=== PATIENT | male | born 1950 | race Hispanic/Latino ===

== ENCOUNTER 2017-01-26 07:19 | Day surgery (SDC) | payer MEDICARE ==
[2017-01-23 04:03] VITALS: BMI 18.1
[2017-01-26] MEDS ORDERED: Midazolam 2 MG/2 ML VIAL ONE (08:06)
[2017-01-26] MEDS ORDERED: Iohexol 350mg/ml 100 ML ONE ×2 (08:45→08:51)
[2017-01-26] MEDS ORDERED: Sodium Chloride 0.9% 500 ML IV SCH (09:15)
--- NOTE | 2017-01-26 09:36 | CP.SDSHP ---
Same Day Surgery H & P - History Proposed Procedure: see consult from [facility]. no change. - Allergies Allergies: Allergies No Known Allergies Allergy (Verified 01/21/17 15:49) Short Stay Discharge - Short Stay Discharge Admitting Diagnosis/Reason for Visit: CHEST PAIN Disposition: HOME/ ROUTINE
--- NOTE | 2017-01-26 10:13 | CARDCATH ---
PROCEDURE DATE: 01/26/2017 PROCEDURE PERFORMED: Left heart catheterization, coronary angiography, left ventriculography. INDICATIONS: Dyspnea on exertion, abnormal stress test. COMPLICATIONS: None. HISTORY: The patient is a 66-year-old male with past medical history of hypertension, hypercholesterolemia, coronary artery disease, who has had previous coronary bypass grafting. The patient has dyspnea on exertion. Nuclear perfusion stress test shows evidence of myocardial perfusion defects and ejection fraction 45%. He is referred for cardiac catheterization. FINDINGS: LEFT MAIN: Normal. LEFT ANTERIOR DESCENDING ARTERY: There is a 95% stenosis of the proximal vessel. The mid vessel is 100% occluded. The distal vessel is supplied by a patent left internal mammary graft. LEFT CIRCUMFLEX ARTERY: The vessel is occluded 100% in the mid portion. RIGHT CORONARY ARTERY: The vessel is occluded 100% in the proximal portion. LEFT INTERNAL MAMMARY TO LEFT ANTERIOR DESCENDING ARTERY: Patent SAPHENOUS VEIN GRAFT to Right Posterior Descending artery: Patent. SEQUENTIAL SAPHENOUS VEIN GRAFT to the first and second obtuse marginal artery : patent. LEFT VENTRICLE: Left ventricular systolic function is mildly reduced. Left ventricular ejection fraction is 45%. There is no mitral regurgitation, no aortic stenosis. Mild posterobasal hypokinesis is noted. CONCLUSIONS: 1. Severe multivessel coronary artery disease. 2. Patent bypass grafts. 3. Mild left ventricular systolic dysfunction. PLAN: Medical therapy. Leodan Cochran MD cc: [phone] TT: 01/26/2017 10:12:26 jn MTDD
== END 2017-01-26 10:55 | disposition home or self-care (01) ==
LOC: MERGE 07:19 → C.CATHLAB 07:19
PROVIDERS: ATTEND Internal Medicine Cardiovascular Disease
DX: I25.10 Atherosclerotic heart disease of native coronary artery without angina pectoris (principal); Z95.1 Presence of aortocoronary bypass graft; I25.82 Chronic total occlusion of coronary artery; I51.89 Other ill-defined heart diseases
CPT/HCPCS: 93459; 93567; C1729; C1766; C1769; C1887; J1644; J2250; J3010; J7040; Q9967

== ENCOUNTER 2018-01-05 12:19 | Emergency (ER) | payer MEDICARE ==
[2018-01-05 12:20] VITALS: BMI 18.1
--- NOTE | 2018-01-05 12:56 | C.PDOC ---
History Of Present Illness 67 year old male with PMhx of CAD (Stents), CHF, COPD, emphysema presents to the ED for evaluation of SOB for the past several weeks. Patient states that today his SOB is the same but states he has a non productive cough, he denies his SOB is due to exertion. Patient was a smoker until 1 year ago when he quit. Patient denies fever, chills, nausea, vomit, diarrhea, back pain, CP. Chief Complaint (Nursing): Shortness Of Breath History Per: Patient History/Exam Limitations: no limitations Onset/Duration Of Symptoms: Days Quality: Tightness Current Respiratory Medications: See Home Med List Severity: None Associated Symptoms: Other (No productive cough) Recent travel outside of the [place]: No Additional History Per: Patient Past Medical History Reviewed: Historical Data, Nursing Documentation, Vital Signs Vital Signs: Last Vital Signs Temp 97.4 F L 01/05/18 12:25 Pulse 72 01/05/18 12:25 Resp 24 01/05/18 12:25 BP 171/89 H 01/05/18 12:25 Pulse Ox 100 01/05/18 14:45 - Medical History PMH: Anemia, Asthma, Atrial Fibrillation, Bronchitis, CAD, Cardia Arrhythmia, CHF, COPD, Emphysema, HTN, Hypercholesterolemia, Malignancy (right lung mass) Denies: HIV, Chronic Kidney Disease Surgical History: CABG (x3), Coronary Stent (x3), Pacemaker - [facility] Procedures FLUOROSCOPY OF LEFT HEART USING OTHER CONTRAST (01/22/17) INSERT PACE. DUAL JOHN IN CHEST SUBCU/FASCIA, OPEN (02/17/17) INSERTION OF PACEMAKER LEAD INTO R VENTRICLE, PERC APPROACH (02/17/17) INSERTION OF PACEMAKER LEAD INTO RIGHT ATRIUM, PERC APPROACH (02/17/17) INTRODUCTION OF SERUM/TOX/VACCINE INTO MUSCLE, PERC APPROACH (01/22/17) MEASURE OF CARDIAC SAMPL & PRESSURE, L HEART, PERC APPROACH (01/22/17) Family History: States: Unknown Family Hx - Social History Hx Alcohol Use: No Hx Substance Use: No - Immunization History Hx Tetanus Toxoid Vaccination: No Hx Influenza Vaccination: No Hx Pneumococcal Vaccination: No Review Of Systems Constitutional: Negative for: Fever, Chills Cardiovascular: Negative for: Chest Pain, Palpitations Respiratory: Positive for: Cough, Shortness of Breath Gastrointestinal: Negative for: Nausea, Vomiting, Abdominal Pain Musculoskeletal: Negative for: Back Pain Skin: Negative for: Rash Neurological: Negative for: Weakness, Numbness, Headache Physical Exam - Physical Exam Appears: Non-toxic, No Acute Distress, Other (Thin) Skin: Normal Color, Warm, Dry Head: Atraumatic, Normacephalic Eye(s): bilateral: Normal Inspection Nose: No Discharge Oral Mucosa: Moist Neck: Normal ROM, Supple Chest: Symmetrical Cardiovascular: Rhythm Regular, No Murmur Respiratory: Rales (Left lower and mid lung felds), No Rhonchi, No Wheezing Gastrointestinal/Abdominal: Soft, No Tenderness, No Guarding, No Rebound Extremity: Normal ROM, No Tenderness, No Swelling Pulses: Left Dorsalis Pedis: Normal, Right Dorsalis Pedis: Normal Neurological/Psych: Oriented x3 Gait: Steady ED Course And Treatment - Laboratory Results Result Diagrams: 01/05/18 13:12 01/05/18 13:12 ECG: Interpreted By Me, Viewed By Me Interpretation Of ECG: Atrial paced, pacemaker 100 capture. Q wave in inferior lead suggest old inferior wall SD. flipped Ts in V4 - V6 lateral ischemia. Rate From EC O2 Sat by Pulse Oximetry: 100 (On RA) Pulse Ox Interpretation: Normal Medical Decision Making Medical Decision Making: Impression: pneumonia vs COPD exacerbation Plan: * EKG * Labs * CXR * Solumedrol 125 mg IVP * Blood culture * Nebulizer treatment 14:42 - spoke with Dr. Elias states patient like to come to the ED, is not compliant with his medications. Patient is not able to afford his medications and need group home placement as per Dr. Elias. Disposition - Disposition Referrals: Pete Elias MD [Staff Provider] - Disposition: HOME/ ROUTINE Disposition Time: 15:46 Condition: FAIR Instructions: Shortness of Breath (Dyspnea) Forms: [employer] (Armenian) Print Language: SLOVAK - Clinical Impression Clinical Impression: Dyspnea - Scribe Statement The provider has reviewed the documentation as recorded by the Scribe Mirza Bell All medical record entries made by the Scribe were at my direction and personally dictated by me. I have reviewed the chart and agree that the record accurately reflects my personal performance of the history, physical exam, medical decision making, and the department course for this patient. I have also personally directed, reviewed, and agree with the discharge instructions and disposition.
[2018-01-05 13:21] LABS: BASO % 0.4 % (0.0-2.0); EOS # 0.2 K/uL (0.0-0.7); EOS % 2.9 % (0.0-4.0); HEMOGLOBIN 10.9 g/dL (12.0-18.0); LYMPH # 1.4 K/uL (1.0-4.3); LYMPH % 17.6 % (20.0-40.0); MEAN CELL VOLUME 91.2 fL (80.0-94.0); MEAN CORPUSCULAR HEMOGLOBIN 30.4 pg (27.0-31.0); MEAN CORPUSCULAR HGB CONC 33.3 g/dL (33.0-37.0); MEAN PLATELET VOLUME 7.4 fL (7.2-11.7); MONO # 0.6 K/uL (0.0-0.8); MONO % 7.2 % (0.0-10.0); NEUT # 5.9 K/uL (1.8-7.0); NEUT % 71.9 % (50.0-75.0); RBC 3.61 Mil/uL (4.40-5.90); RED CELL DISTRIBUTION WIDTH 16.6 % (11.5-14.5); WHITE BLOOD COUNT 8.2 K/uL (4.8-10.8)
[2018-01-05 13:34] LABS: ALB/GLOB RATIO 1.2 (1.0-2.1); ALBUMIN 4.2 g/dL (3.5-5.0); CALCIUM 8.9 mg/dl (8.6-10.4); GFR AFRICAN-AMERICAN > 60; GFR NON-AFRICAN AMERICAN > 60
[2018-01-05 13:37] LABS: ALT/SGPT 30 U/L (21-72); AST/SGOT 46 U/L (17-59); BLOOD UREA NITROGEN 23 mg/dL (9-20)
[2018-01-05 13:45] LABS: B-TYPE NATRIURETIC PEPTIDE 792 pg/mL (0-900)
--- NOTE | 2018-01-05 14:32 | RAD ---
PROCEDURE: CHEST RADIOGRAPH, 1 VIEW HISTORY: SOB COMPARISON: 08/31/2017 FINDINGS: LUNGS: Clear. PLEURA: No pneumothorax or pleural fluid seen. CARDIOVASCULAR: Position/ configuration of pacemaker radiographic findings to suggest acute or significant cardiovascular disease. Incidental Finding(s): Postoperative changes related to sternotomy. OSSEOUS STRUCTURES: No significant abnormalities. VISUALIZED UPPER ABDOMEN: Normal. OTHER FINDINGS: None. IMPRESSION: No active disease. No acute/significant interval changes.
[2018-01-05 15:55] VITALS: BP 155/73; PULSE 68; RESP 18; TEMP 97.5; O2SAT 97
== END 2018-01-05 15:55 | disposition home or self-care (01) ==
LOC: C.ER 12:19
DX: R06.00 Dyspnea, unspecified (principal); I10 Essential (primary) hypertension; I48.91 Unspecified atrial fibrillation; D64.9 Anemia, unspecified; Z87.891 Personal history of nicotine dependence
CPT/HCPCS: 71045; 80053; 83880; 84484; 85025; 85378; 87040; 96374; 99285; J2930

== ENCOUNTER 2018-04-13 03:05 | Inpatient (IN) | payer MEDICARE ==
--- NOTE | 2018-04-13 03:19 | C.PDOC ---
History Of Present Illness Patient presents to the ER with a complaint of SOB worsening over the past few days. Patient has not taken any medications as he cannot afford them and has not seen a doctor in a couple of months. He complains now of mild chest discomfort and SOB. Patient is currently speaking in complete sentences. Denies fever or chills. Time Seen by Provider: 04/13/18 03:18 Chief Complaint (Nursing): Shortness Of Breath History Per: Patient History/Exam Limitations: no limitations Onset/Duration Of Symptoms: Days Current Symptoms Are (Timing): Still Present Initiating Event: Other (Not known) Quality: Dull Exacerbating Factor(s): Exertion Current Respiratory Medications: See Home Med List Severity: Moderate Pain Scale Rating Of: 5 Associated Symptoms: Chest Pain (Discomfort), Other (SOB). denies: Fever, Chills Reports Recently: Seen In ED, Treated By A Physician Recent travel outside of the [place]: No Additional History Per: Patient Past Medical History Reviewed: Historical Data, Nursing Documentation, Vital Signs Vital Signs: Last Vital Signs Temp 97.6 F 04/13/18 03:17 Pulse 66 04/13/18 03:17 Resp 24 04/13/18 03:34 BP 136/71 04/13/18 03:17 Pulse Ox 98 04/13/18 03:17 - Medical History PMH: Anemia, Asthma, Atrial Fibrillation, Bronchitis, CAD, Cardia Arrhythmia, CHF, COPD, Emphysema, HTN, Hypercholesterolemia, Malignancy (right lung mass), Seizures Surgical History: CABG (x3), Coronary Stent (x3), Pacemaker - [facility] Procedures FLUOROSCOPY OF LEFT HEART USING OTHER CONTRAST (01/22/17) INSERT PACE. DUAL JOHN IN CHEST SUBCU/FASCIA, OPEN (02/17/17) INSERTION OF PACEMAKER LEAD INTO R VENTRICLE, PERC APPROACH (02/17/17) INSERTION OF PACEMAKER LEAD INTO RIGHT ATRIUM, PERC APPROACH (02/17/17) INTRODUCTION OF SERUM/TOX/VACCINE INTO MUSCLE, PERC APPROACH (01/22/17) MEASURE OF CARDIAC SAMPL & PRESSURE, L HEART, PERC APPROACH (01/22/17) Family History: States: No Known Family Hx - Social History Hx Alcohol Use: No Hx Substance Use: No - Immunization History Hx Tetanus Toxoid Vaccination: No Hx Influenza Vaccination: No Hx Pneumococcal Vaccination: No Review Of Systems Constitutional: Negative for: Fever, Chills Cardiovascular: Positive for: Chest Pain. Negative for: Palpitations Respiratory: Positive for: Shortness of Breath Gastrointestinal: Negative for: Nausea, Vomiting Genitourinary: Negative for: Dysuria Musculoskeletal: Negative for: Back Pain Skin: Negative for: Rash Neurological: Negative for: Weakness Psych: Negative for: Anxiety Physical Exam - Physical Exam Appears: Non-toxic Skin: Warm, Dry Head: Normacephalic Eye(s): bilateral: Normal Inspection Oral Mucosa: Moist Neck: Supple Chest: No Tenderness, Other (CABG scar, left pacemaker) Cardiovascular: Rhythm Regular Respiratory: Rales (At bases), No Rhonchi, No Wheezing Gastrointestinal/Abdominal: Soft, No Tenderness Back: Normal Inspection Extremity: Pedal Edema (Trace) Extremity: Bilateral: Atraumatic Pulses: Left Dorsalis Pedis: Normal, Right Dorsalis Pedis: Normal Neurological/Psych: Oriented x3 Gait: Steady ED Course And Treatment - Laboratory Results Result Diagrams: 04/13/18 03:34 04/13/18 03:34 ECG: Interpreted By Me, Viewed By Me ECG Rhythm: Sinus Rhythm (67), ST/T Changes, Nonspecific Changes (atrial paced rhythm) Pulse Ox Interpretation: Normal - Radiology CXR: Interpreted by Me, Viewed By Me CXR Interpretation: Yes: COPD, Other (cabg, pacer left). No: Infiltrates, Fracture Progress Note: Blood work, EKG, and CXR ordered. Aspirin administered. Disposition Discussed With DrEvangelina: Merlyn Duque Comment: accepted the pt on his service and took over the care at 4:28AM Doctor Will See Patient In The: Hospital Counseled Patient/Family Regarding: Studies Performed, Diagnosis - Disposition Disposition: HOSPITALIZED Disposition Time: 03:18 Condition: FAIR Forms: [facility] (Malay) - POA Present On Arrival: None - Clinical Impression Clinical Impression: Dyspnea, Chest pain - Scribe Statement The provider has reviewed the documentation as recorded by the Scribe Virgil Zimmer All medical record entries made by the Scribe were at my direction and personally dictated by me. I have reviewed the chart and agree that the record accurately reflects my personal performance of the history, physical exam, medical decision making, and the department course for this patient. I have also personally directed, reviewed, and agree with the discharge instructions and disposition. Decision To Admit - Pt Status Changed To: Hospital Disposition Of: Inpatient - Admit Certification Admit to Inpatient:: After my assessment, the patient will require hospitalization for at least two midnights. This is because of the severity of symptoms shown, intensity of services needed, and/or the medical risk in this patient being treated as an outpatient. - InPatient: Physician Admission Certification: I certify that this patient requires 2 or more midnights of care for the following reason:: After my assessment, the patient will require hospitalization for at least two midnights. This is because of the severity of symptoms shown, intensity of services needed, and/or the medical risk in this patient being treated as an outpatient. - . Bed Request Type: Telemetry Admitting Physician: Merlyn Duque Patient Diagnosis: Dyspnea, Chest pain
[2018-04-13 03:20] VITALS: BMI 23.0
[2018-04-13] MEDS ORDERED: Aspirin 325 mg EC Tablets PO STA (03:20)
[2018-04-13] MEDS ORDERED: Aspirin 325 mg EC Tablets PO ONE (03:33)
[2018-04-13 03:38] LABS: BASO # 0.1 K/uL (0.0-0.2); EOS # 0.6 K/uL (0.0-0.7); HEMOGLOBIN 12.1 g/dL (12.0-18.0); LYMPH # 1.5 K/uL (1.0-4.3); LYMPH % 21.8 % (20.0-40.0); MEAN CORPUSCULAR HEMOGLOBIN 30.6 pg (27.0-31.0); MEAN CORPUSCULAR HGB CONC 34.1 g/dL (33.0-37.0); MEAN PLATELET VOLUME 7.3 fL (7.2-11.7); MONO # 0.6 K/uL (0.0-0.8); MONO % 9.3 % (0.0-10.0); NEUT % 57.9 % (50.0-75.0); RBC 3.95 Mil/uL (4.40-5.90); RED CELL DISTRIBUTION WIDTH 15.3 % (11.5-14.5)
[2018-04-13 03:46] LABS: INR 0.9; PROTHROMBIN TIME 10.3 SECONDS (9.7-12.2)
[2018-04-13 03:52] LABS: ALB/GLOB RATIO 1.4 (1.0-2.1); ALBUMIN 4.7 g/dL (3.5-5.0); ALT/SGPT 27 U/L (21-72); AST/SGOT 40 U/L (17-59); BLOOD UREA NITROGEN 22 mg/dL (9-20); CALCIUM 9.4 mg/dl (8.6-10.4); GFR AFRICAN-AMERICAN > 60; GFR NON-AFRICAN AMERICAN > 60; LIPASE 59 U/L (23-300)
[2018-04-13 04:04] LABS: B-TYPE NATRIURETIC PEPTIDE 804 pg/mL (0-900)
--- NOTE | 2018-04-13 08:27 | RAD ---
PROCEDURE: CHEST RADIOGRAPH, 1 VIEW HISTORY: Chest pain COMPARISON: 01/05/2018. FINDINGS: LUNGS: The lungs are hyperinflated and there is peribronchial thickening with chronic changes in both lungs. PLEURA: No pneumothorax. There is stable left pleural thickening CARDIOVASCULAR: The heart is normal in size. Status post median sternotomy. There is stable position of left-sided pacing device. OSSEOUS STRUCTURES: No significant abnormalities. VISUALIZED UPPER ABDOMEN: Normal. OTHER FINDINGS: None. IMPRESSION: COPD. No acute findings.
[2018-04-13] MEDS ORDERED: Nitroglycerin 2% Ointment Foilpak UD TOP ONE (08:57)
[2018-04-13] MEDS: Nitroglycerin 2% Ointment Foilpak UD TOP SCH ×3 (09:00→18:26)
[2018-04-13] MEDS: Enoxaparin 40 mg Syringe SC SCH ×2 (09:53→18:27)
--- NOTE | 2018-04-13 11:04 | CARD ---
APPROVED REPORT EKG Measurement Heart [id number] <Conclusion> Atrial-paced rhythm with prolonged AV conduction Cannot rule out Inferior infarct, age undetermined Cannot rule out Anterior infarct, age undetermined ST & T wave abnormality, consider lateral ischemia Abnormal ECG
[2018-04-13 12:13] LABS: CK-MB 2.45 ng/mL (0.0-3.38)
--- NOTE | 2018-04-13 14:24 | CP.PCM.HP ---
History of Present Illness - History of Present Illness History of Present Illness: COMPREHENSIVE HISTORY & PHYSICAL EXAM HPI Patient is admitted from [facility] emergency room with shortness of breath and atypical chest pain. Patient has a history of coronary artery disease with CABG, ran out of the medication due to lack of funds, became short of breath with atypical chest pain. In the emergency room patient was found to be in congestive heart failure responded with IV Lasix and is admitted for further treatment PAST HIST. Patient has been admitted in [facility] for multiple times for CHF and chest pain. Patient has a CABG pulled details not available but had a cardiac cath done in 2017 showed patent grafts patient had an echo done last year which showed mild LV dysfunction with EF of 45%. Patient had a sinus bradycardia during that admission and since then patient has DDD pacemaker PERSONAL HIST: Smoking. N Alcohol. N Allergy N Travel_- . FAMILY HIST : ROS : Constitutional: Negative for weight change Eyes: Negative for redness, swelling , itching, discharge, vision changes, blurry vision, double vision, glaucoma, cataracts, Ears: Negative for hearing loss, ringing, , tinnitus, vertigo Nose: Negative for rhinorrhea, stuffiness, sniffing, itching, postnasal drip, discoloration, nasal congestion and epistaxis. Throat: Negative for throat clearing, sore throat, hoarseness, difficulty swallowing and difficulty speaking. Respiratory: Negative pleuritic chest pain ,daytime somnolence, chronic cough , hemoptysis, snoring at night, Cardiovascular: Negative for Edema of legs, leg cramps, angina, claudication, , irregular heartbeat, Neurology: Negative for irritability, muscle weakness, numbness and tingling, seizures, tremors, migraines, slurred speech, syncope, memory loss, mood changes , recurrent headaches Gastrointestinal: Negative for difficulty swallowing, diarrhea, constipation, black stools, rectal bleeding, nausea, flatulence, reflux, poor appetite, changes in bowel habits, abdominal pain Genitourinary: Negative for frequent urination, hematuria, discharge, incontinence, urinary retention, frequent UTI, Psychiatric: Negative for depression, anxiety/panic, suicidal tendencies, Musculoskeletal: Negative for swollen joints, back pain, , neck pain, morning stiffness of joints, . Skin: Negative for rash, ulcers, itching, dry skin and pigmented lesions. P/E: Constitutional: Appears stated age and in no apparent distress. Head: Normocephalic. Ears: External ear canals patent without inflammation. Tympanic membranes intact with normal light reflex and landmark. Eyes: Pupils are central, bilaterally equal, symmetrical and reacts to light with normal movements and no icterus or pallor. Nose: External nares are patent. Mucosa is pink Mouth-Throat: Good general appearance and condition. No post-pharyngeal/oropharyngeal erythema and tonsillar hypertrophy. Good dental hygiene. Neck-Lymphatic: Neck is supple with normal ROM, no thyromegaly, lymph nodes or masses. JVD is normal with no carotid bruit. Lungs: Bilateral poor entry with rhonchi Cardiovascular: S1 and S2 are normal with no murmurs, gallops and rub. GI Exam: No hepatomegaly. Abdomen is soft and non-tender. No Organomegaly , masses or hernias are evident and bowel sounds are normal and active. Neurology: Higher function and all cranial nerves intact, with no gross motor or sensory deficit. Superficial and deep reflexes are normal with downwards planters. No cerebellar deficit with normal gait. Musculoskeletal: No tender spots with normal curvature of the spine with no swelling or restricted ROM of the small and large joints. Extremities: Homans sign absent. Intact pulses with no pitting edema, calf tenderness or skin color changes. Skin: No rash, eruptions or abnormal skin pigmentation LAB/RADIOLOGY: ASSESMENT : Acute on chronic systolic congestive heart failure with reduced ejection fraction. COPD with exacerbation Presence of pacemaker PLAN: See orders Present on Admission - Present on Admission Any Indicators Present on Admission: No Past Patient History - Infectious Disease Hx of Infectious Diseases: None - Past Medical History & Family History Past Medical History?: Yes - Past Social History Smoking Status: Former Smoker - CARDIAC Hx Atrial Fibrillation: Yes Hx Cardia Arrhythmia: Yes Hx Congestive Heart Failure: Yes Hx Hypercholesterolemia: Yes Hx Hypertension: Yes Hx Pacemaker: Yes - PULMONARY Hx Asthma: Yes Hx Bronchitis: Yes Hx Chronic Obstructive Pulmonary Disease (COPD): Yes Hx Emphysema: Yes - NEUROLOGICAL Hx Seizures: Yes - HEENT Hx HEENT Problems: No - RENAL Hx Chronic Kidney Disease: No - ENDOCRINE/METABOLIC Hx Endocrine Disorders: No - HEMATOLOGICAL/ONCOLOGICAL Hx Anemia: Yes - INTEGUMENTARY Hx Dermatological Problems: No - MUSCULOSKELETAL/RHEUMATOLOGICAL Hx Falls: No - GASTROINTESTINAL Hx Gastrointestinal Disorders: No - GENITOURINARY/GYNECOLOGICAL Hx Sexually Transmitted Disorders: No - PSYCHIATRIC Hx Substance Use: No - SURGICAL HISTORY Hx Coronary Artery Bypass Graft: Yes (x3) Hx Coronary Stent: Yes (x3) - ANESTHESIA Hx Anesthesia: Yes Hx Anesthesia Reactions: No Hx Malignant Hyperthermia: No Meds Allergies/Adverse Reactions: Allergies Allergy/AdvReac Type Severity Reaction Status Date / Time No Known Allergies Allergy Verified 04/13/18 03:21 Results - Vital Signs Recent Vital Signs: Last Vital Signs Temp 97.9 F 04/13/18 13:30 Pulse 60 04/13/18 12:35 Resp 20 04/13/18 13:30 BP 129/73 04/13/18 13:30 Pulse Ox 99 04/13/18 12:35 - Labs Result Diagrams: 04/13/18 03:34 04/13/18 03:34 Labs: Laboratory Results - last 24 hr 04/13/18 04/13/18 04/13/18 03:34 03:34 03:34 WBC 7.0 RBC 3.95 L Hgb 12.1 Hct 35.5 MCV 90.0 MCH 30.6 MCHC 34.1 RDW 15.3 H Plt Count 153 MPV 7.3 Neut % (Auto) 57.9 Lymph % (Auto) 21.8 [place] % (Auto) 9.3 Eos % (Auto) 9.0 H Baso % (Auto) 2.0 Neut # (Auto) 4.0 Lymph # (Auto) 1.5 [place] # (Auto) 0.6 Eos # (Auto) 0.6 Baso # (Auto) 0.1 PT 10.3 INR 0.9 APTT 38 H Sodium 141 Potassium 4.3 Chloride 104 Carbon Dioxide 24 Anion Gap 17 BUN 22 H Creatinine 1.0 Est GFR ( Amer) > 60 Est GFR (Non-Af Amer) > 60 Random Glucose 89 Calcium 9.4 Total Bilirubin 0.7 AST 40 ALT 27 Alkaline Phosphatase 89 Total Creatine Kinase CK-MB (Mass) Troponin I < 0.0120 NT-Pro-B Natriuret Pep 804 Total Protein 7.9 Albumin 4.7 Globulin 3.3 Albumin/Globulin Ratio 1.4 Lipase 59 04/13/18 11:38 WBC RBC Hgb Hct MCV MCH MCHC RDW Plt Count MPV Neut % (Auto) Lymph % (Auto) [place] % (Auto) Eos % (Auto) Baso % (Auto) Neut # (Auto) Lymph # (Auto) [place] # (Auto) Eos # (Auto) Baso # (Auto) PT INR APTT Sodium Potassium Chloride Carbon Dioxide Anion Gap BUN Creatinine Est GFR ( Amer) Est GFR (Non-Af Amer) Random Glucose Calcium Total Bilirubin AST ALT Alkaline Phosphatase Total Creatine Kinase 81 CK-MB (Mass) 2.45 Troponin I < 0.0120 NT-Pro-B Natriuret Pep Total Protein Albumin Globulin Albumin/Globulin Ratio Lipase
[2018-04-14] MEDS: Nitroglycerin 2% Ointment Foilpak UD TOP SCH ×4 (00:11→17:00)
[2018-04-14 07:39] LABS: BASO % 0.2 % (0.0-2.0); EOS # 0.1 K/uL (0.0-0.7); EOS % 1.6 % (0.0-4.0); HEMOGLOBIN 12.4 g/dL (12.0-18.0); LYMPH % 11.2 % (20.0-40.0); MEAN CELL VOLUME 90.7 fL (80.0-94.0); MEAN CORPUSCULAR HEMOGLOBIN 30.4 pg (27.0-31.0); MEAN CORPUSCULAR HGB CONC 33.5 g/dL (33.0-37.0); MEAN PLATELET VOLUME 7.1 fL (7.2-11.7); MONO # 0.8 K/uL (0.0-0.8); MONO % 9.5 % (0.0-10.0); NEUT # 6.6 K/uL (1.8-7.0); NEUT % 77.5 % (50.0-75.0); NRBC % 0.1 % (0.0-2.0); RBC 4.09 Mil/uL (4.40-5.90); RED CELL DISTRIBUTION WIDTH 15.3 % (11.5-14.5); WHITE BLOOD COUNT 8.5 K/uL (4.8-10.8)
[2018-04-14 08:14] LABS: ALB/GLOB RATIO 1.4 (1.0-2.1); ALBUMIN 4.2 g/dL (3.5-5.0); ALT/SGPT 22 U/L (21-72); AST/SGOT 37 U/L (17-59); BLOOD UREA NITROGEN 23 mg/dL (9-20); CALCIUM 8.6 mg/dl (8.6-10.4); GFR AFRICAN-AMERICAN > 60; GFR NON-AFRICAN AMERICAN > 60
[2018-04-14] MEDS: Enoxaparin 40 mg Syringe SC SCH (09:40)
[2018-04-14] MEDS ORDERED: Enoxaparin 40 mg Syringe SC SCH (10:00)
[2018-04-14] MEDS ORDERED: Enoxaparin 60 mg Syringe SC SCH (10:00)
--- NOTE | 2018-04-14 13:57 | CARD ---
APPROVED REPORT EXAM: Two-dimensional and M-mode echocardiogram with Doppler and color Doppler. Other Information Quality : GoodRhythm : INDICATION Congestive Heart Failure 2D DIMENSIONS IVSd1.2 (0.7-1.1cm)LVDd6.1 (3.9-5.9cm) LVOT Diameter2.4 (1.8-2.4cm)PWd1.3 (0.7-1.1cm) LVDs4.8 (2.5-4.0cm)FS (%) 20.3 % LVEF (%)40.8 (>50%) M-Mode DIMENSIONS Left Atrium (MM)5.29 (2.5-4.0cm)Aortic Root3.60 (2.2-3.7cm) Aortic Cusp Exc.1.61 (1.5-2.0cm) Mitral Valve MV E Wchaagem22.0cm/sMV A Xddlfslc95.7cm/sMV [id number] E/A ratio0.7MVA (PHT)3.04cm2 TDI E/Lateral E'0.0E/Medial E'0.0 Tricuspid Valve TR Peak Vcraqpaj244ow/sTR Peak Gr.49slKkAHHL65nkBm LEFT VENTRICLE The Left Ventricle is mildly dilated. There is normal left ventricular wall thickness. Left ventricle systolic function is mildly impaired. The Ejection Fraction is 40-45%. There is global hypokinesis of the left ventricle. Transmitral Doppler flow pattern is Grade I-abnormal relaxation pattern. No left ventricle thrombus noted on this study. There is no ventricular septal defect visualized. There is no left ventricular aneurysm. There is no mass noted in the left ventricle. RIGHT VENTRICLE The right ventricle is normal size. There is normal right ventricular wall thickness. The right ventricular systolic function is normal. ATRIA The left atrium is moderately dilated. The right atrium size is normal. The interatrial septum is intact with no evidence for an atrial septal defect. AORTIC VALVE The aortic valve is normal in structure and function. No aortic regurgitation is present. There is no aortic valvular stenosis. There is no aortic valvular vegetation. MITRAL VALVE The mitral valve is normal in structure and function. Mitral annular calcification is mild. There is no evidence of mitral valve prolapse. There is no mitral valve stenosis. Mitral regurgitation is mild. TRICUSPID VALVE The tricuspid valve is normal in structure and function. There is mild tricuspid regurgitation. Right ventricular systolic pressure is estimated at 30-40 mmHg. There is no tricuspid valve prolapse or vegetation. There is no tricuspid valve stenosis. PULMONIC VALVE The pulmonary valve is normal in structure and function. There is no pulmonic valvular regurgitation. There is no pulmonic valvular stenosis. GREAT VESSELS The aortic root is normal in size. The ascending aorta is normal in size. The pulmonary artery is normal. The IVC is normal in size and collapses >50% with inspiration. PERICARDIAL EFFUSION The pericardium appears normal. There is no pleural effusion. <Conclusion> The Left Ventricle is mildly dilated. Left ventricle systolic function is mildly impaired. The Ejection Fraction is 40-45%. The left atrium is moderately dilated. Mitral regurgitation is mild.
--- NOTE | 2018-04-14 14:17 | CP.PCM.PN ---
Subjective - Date & Time of Evaluation Date of Evaluation: 04/14/18 Time of Evaluation: 14:14 - Subjective Subjective: CHIEF COMPLAINTS TODAY : patient has no chest pain. Decreased shortness of breath ROS. HEENT : N. Resp : No cough, wheezing ,pleuritic CP ,or hemoptysis Cardio : No anginal CP, PND, orthopnea, palpitation GI : No abd.pain, n/v ,diarrhea or GI bleeding . 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 Musculoskel : No joint swelling , Derm : No rash Psych : Normal affect. Ext : No swelling ,calf pain PE. Pt. is alert awake in no distress. V.S As noted in the chart Head ,ear nose,throat and eyes : Normal. Neck : Supple with normal carotids. Lungs:bilateral rhonchi and rales Heart : S1 & S2 normal with S4. No murmur. Abd : Soft non tender with normal bowel sounds. Neuro : Moves all ext. with no localized deficit. Ext : No edema with intact pulses.Non tender calves Derm : No rashes or decubitus ulcer. LABS/RADIOLOGY: echocardiogram showed mildly depressed left ventricular ejection fraction between 40 and 45% left atrial enlargement and mild mitral regurg ASSESSMENT/PLAN : continue present medications for CHF and coronary artery disease. Objective - Vital Signs/Intake and Output Vital Signs (last 24 hours): Temp Pulse Resp BP Pulse Ox 98.7 F 62 20 92/52 L 100 04/14/18 07:00 04/14/18 12:06 04/14/18 07:00 04/14/18 12:06 04/14/18 07:00 - Medications Medications: Current Medications Aspirin (Aspirin) 325 mg PO DAILY [facility] Last Admin: 04/14/18 09:40 Dose: 325 mg Carvedilol (Coreg) 3.125 mg PO Q12 [facility] Last Admin: 04/14/18 10:05 Dose: Not Given Clopidogrel Bisulfate (Plavix) 75 mg PO DAILY [facility] Last Admin: 04/14/18 09:40 Dose: 75 mg Docusate Sodium (Colace) 100 mg PO TID [facility] Last Admin: 04/14/18 09:39 Dose: 100 mg Enalapril Maleate (Vasotec) 2.5 mg PO DAILY [facility] Last Admin: 04/14/18 10:05 Dose: Not Given Enoxaparin Sodium (Lovenox) 40 mg SC DAILY [facility] Last Admin: 04/14/18 09:40 Dose: 40 mg Famotidine (Pepcid) 20 mg IVP DAILY [facility] Furosemide (Lasix) 20 mg PO DAILY [facility] Last Admin: 04/14/18 09:45 Dose: 20 mg Nitroglycerin (Nitro-Bid 2% Oint) 0.5 ea TOP Q6 [facility] Last Admin: 04/14/18 12:06 Dose: Not Given - Labs Labs: 04/14/18 07:30 04/14/18 07:30 PT 10.3 SECONDS (9.7-12.2) 04/13/18 03:34 INR 0.9 04/13/18 03:34 APTT 38 SECONDS (21-34) H 04/13/18 03:34
[2018-04-15] MEDS: Nitroglycerin 2% Ointment Foilpak UD TOP SCH ×4 (00:20→17:09)
[2018-04-15 08:28] LABS: BASO # 0.1 K/uL (0.0-0.2); BASO % 0.8 % (0.0-2.0); EOS # 0.2 K/uL (0.0-0.7); EOS % 2.1 % (0.0-4.0); HEMOGLOBIN 12.1 g/dL (12.0-18.0); LYMPH # 1.2 K/uL (1.0-4.3); LYMPH % 11.9 % (20.0-40.0); MEAN CELL VOLUME 89.9 fL (80.0-94.0); MEAN CORPUSCULAR HEMOGLOBIN 29.7 pg (27.0-31.0); MEAN PLATELET VOLUME 7.3 fL (7.2-11.7); MONO % 9.6 % (0.0-10.0); NEUT # 7.9 K/uL (1.8-7.0); NEUT % 75.6 % (50.0-75.0); NRBC % 0.1 % (0.0-2.0); RBC 4.08 Mil/uL (4.40-5.90); RED CELL DISTRIBUTION WIDTH 15.6 % (11.5-14.5); WHITE BLOOD COUNT 10.5 K/uL (4.8-10.8)
[2018-04-15 08:49] LABS: ALB/GLOB RATIO 1.2 (1.0-2.1); ALBUMIN 3.8 g/dL (3.5-5.0); ALT/SGPT 18 U/L (21-72); AST/SGOT 29 U/L (17-59); BLOOD UREA NITROGEN 24 mg/dL (9-20); CALCIUM 8.3 mg/dl (8.6-10.4); GFR AFRICAN-AMERICAN > 60; GFR NON-AFRICAN AMERICAN > 60
[2018-04-15] MEDS: Enoxaparin 40 mg Syringe SC SCH (09:51)
[2018-04-15] MEDS: Aluminum Hydroxide/Magnesium Hydroxide Susp (30 mL) PO PRN ×3 (10:28→19:09)
[2018-04-15] MEDS ORDERED: Albuterol-Ipratrop 3 mg / 0.5 (3 ml) UD INH ONE (10:58)
--- NOTE | 2018-04-15 15:31 | CP.PCM.PN ---
Subjective - Date & Time of Evaluation Date of Evaluation: 04/15/18 Time of Evaluation: 15:30 - Subjective Subjective: CHIEF COMPLAINTS TODAY : patient has no chest pain. Decreased shortness of breath PATIENT HAD EPIGASTRIC BURNING SENSATION WHICH WAS RELIEVED PARTLY WITH iv pEPCID. pATIENT HAS A HISTORY OF PEPTIC ULCER DISEASE WITH SIMILAR PAIN FOR A LONG TIME ROS. HEENT : N. Resp : No cough, wheezing ,pleuritic CP ,or hemoptysis Cardio : No anginal CP, PND, orthopnea, palpitation GI : No abd.pain, n/v ,diarrhea or GI bleeding . 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 Musculoskel : No joint swelling , Derm : No rash Psych : Normal affect. Ext : No swelling ,calf pain PE. Pt. is alert awake in no distress. V.S As noted in the chart Head ,ear nose,throat and eyes : Normal. Neck : Supple with normal carotids. Lungs:bilateral rhonchi and rales Heart : S1 & S2 normal with S4. No murmur. Abd : Soft non tender with normal bowel sounds. Neuro : Moves all ext. with no localized deficit. Ext : No edema with intact pulses.Non tender calves Derm : No rashes or decubitus ulcer. LABS/RADIOLOGY: echocardiogram showed mildly depressed left ventricular ejection fraction between 40 and 45% left atrial enlargement and mild mitral regurg ASSESSMENT/PLAN : continue present medications for CHF and coronary artery disease. PRESCRIBE mAALOX 30 CC EVERY 4 HOURS CONTINUE pEPCID AND gi EVALUATION IN A.M. Objective - Vital Signs/Intake and Output Vital Signs (last 24 hours): Temp Pulse Resp BP Pulse Ox 99.5 F 65 20 113/64 93 L 04/15/18 08:00 04/15/18 08:00 04/15/18 08:00 04/15/18 09:52 04/15/18 08:00 - Medications Medications: Current Medications Al Hydrox/Mg Hydrox/Simethicone (Maalox 30 Ml) 30 ml PO Q4 PRN PRN Reason: Indigestion / Heartburn Last Admin: 04/15/18 15:07 Dose: 30 ml Aspirin (Aspirin) 325 mg PO DAILY [facility] Last Admin: 04/15/18 09:51 Dose: 325 mg Carvedilol (Coreg) 3.125 mg PO Q12 [facility] Last Admin: 04/15/18 09:52 Dose: Not Given Clopidogrel Bisulfate (Plavix) 75 mg PO DAILY [facility] Last Admin: 04/15/18 09:51 Dose: 75 mg Docusate Sodium (Colace) 100 mg PO TID [facility] Last Admin: 04/15/18 13:09 Dose: 100 mg Enalapril Maleate (Vasotec) 2.5 mg PO DAILY [facility] Last Admin: 04/15/18 09:53 Dose: Not Given Enoxaparin Sodium (Lovenox) 40 mg SC DAILY [facility] Last Admin: 04/15/18 09:51 Dose: 40 mg Famotidine (Pepcid) 20 mg IVP DAILY [facility] Last Admin: 04/15/18 09:46 Dose: 20 mg Furosemide (Lasix) 20 mg PO DAILY [facility] Last Admin: 04/15/18 09:52 Dose: 20 mg Nitroglycerin (Nitro-Bid 2% Oint) 0.5 ea TOP Q6 [facility] Last Admin: 04/15/18 12:10 Dose: Not Given - Labs Labs: 04/15/18 08:19 04/15/18 08:19 PT 10.3 SECONDS (9.7-12.2) 04/13/18 03:34 INR 0.9 04/13/18 03:34 APTT 38 SECONDS (21-34) H 04/13/18 03:34
[2018-04-16] MEDS: Nitroglycerin 2% Ointment Foilpak UD TOP SCH ×4 (00:30→19:02)
[2018-04-16 00:37] VITALS: RESP 20
[2018-04-16] MEDS: Aluminum Hydroxide/Magnesium Hydroxide Susp (30 mL) PO PRN (03:05)
[2018-04-16] MEDS ORDERED: Albuterol-Ipratrop 3 mg / 0.5 (3 ml) UD INH STA (07:36)
--- NOTE | 2018-04-16 08:06 | CP.PCM.CON ---
<Bess Martinez - Last Filed: 04/16/18 10:51> History of Present Illness - History of Present Illness History of Present Illness: GI Fellow PGY4 Consult Note This is a 67yM with pmhx of COPD, HTN, HLD, CAD s/p CABG, PPM presenting to ER with complaints of SOB and atypical chest pain for a few days. Patient has a history of coronary artery disease with CABG and ran out of his medication and unable to refill due to financial issues. He has had multiple admissions for CHF and chest pain. Patient has a CABG and a cardiac cath done in 2017 showed patent grafts patient had an echo done last year which showed mild LV dysfunction with EF of 45%. Patient had a sinus bradycardia during that admission and since then patient has PPM. GI was consulted for heartburn. Pt reports her suffers from heartburn and GERD like symtpoms for years he is not on any acid suppressive medications at home. Denies any hx of PUD or EGD or GI bleeding. Pt reports tolerating a diet at home with no nausea or vomiting. No prior colonoscopy ROS: A 12pt ROS was negative except as above PmHx: As stated above PsHx: CABG, PPM FHx: Neg for colon cancer SHx: Denies current etoh, tobacco, drugs Past Patient History - Infectious Disease Hx of Infectious Diseases: None - Past Medical History & Family History Past Medical History?: Yes - Past Social History Smoking Status: Former Smoker - CARDIAC Hx Cardiac Disorders: Yes Hx Congestive Heart Failure: Yes Hx Hypercholesterolemia: Yes Hx Hypertension: Yes - PULMONARY Hx Chronic Obstructive Pulmonary Disease (COPD): Yes - NEUROLOGICAL Hx Seizures: Yes - HEENT Hx HEENT Problems: No - RENAL Hx Chronic Kidney Disease: No - ENDOCRINE/METABOLIC Hx Endocrine Disorders: No - HEMATOLOGICAL/ONCOLOGICAL Hx Anemia: Yes - INTEGUMENTARY Hx Dermatological Problems: No - MUSCULOSKELETAL/RHEUMATOLOGICAL Hx Falls: Yes - GASTROINTESTINAL Hx Gastrointestinal Disorders: No - GENITOURINARY/GYNECOLOGICAL Hx Sexually Transmitted Disorders: No - PSYCHIATRIC Hx Substance Use: No - SURGICAL HISTORY Hx Coronary Artery Bypass Graft: Yes (x3) Hx Coronary Stent: Yes (x3) - ANESTHESIA Hx Anesthesia: Yes Hx Anesthesia Reactions: No Hx Malignant Hyperthermia: No Has any member of the family had a problem w/ anesthesia?: No Meds Allergies/Adverse Reactions: Allergies Allergy/AdvReac Type Severity Reaction Status Date / Time No Known Allergies Allergy Verified 04/13/18 03:21 - Medications Medications: Current Medications Al Hydrox/Mg Hydrox/Simethicone (Maalox 30 Ml) 30 ml PO Q4 PRN PRN Reason: Indigestion / Heartburn Last Admin: 04/16/18 03:05 Dose: 30 ml Aspirin (Aspirin) 325 mg PO DAILY [facility] Last Admin: 04/15/18 09:51 Dose: 325 mg Carvedilol (Coreg) 3.125 mg PO Q12 [facility] Last Admin: 04/15/18 21:42 Dose: 3.125 mg Clopidogrel Bisulfate (Plavix) 75 mg PO DAILY [facility] Last Admin: 04/15/18 09:51 Dose: 75 mg Docusate Sodium (Colace) 100 mg PO TID [facility] Last Admin: 04/15/18 17:49 Dose: 100 mg Enalapril Maleate (Vasotec) 2.5 mg PO DAILY [facility] Last Admin: 04/15/18 09:53 Dose: Not Given Enoxaparin Sodium (Lovenox) 40 mg SC DAILY [facility] Last Admin: 04/15/18 09:51 Dose: 40 mg Famotidine (Pepcid) 20 mg IVP DAILY [facility] Last Admin: 04/15/18 09:46 Dose: 20 mg Furosemide (Lasix) 20 mg PO DAILY [facility] Last Admin: 04/15/18 09:52 Dose: 20 mg Nitroglycerin (Nitro-Bid 2% Oint) 0.5 ea TOP Q6 [facility] Last Admin: 04/16/18 00:30 Dose: Not Given Pantoprazole Sodium (Protonix Inj) 40 mg IVP DAILY [facility] Physical Exam - Constitutional Appears: Non-toxic, No Acute Distress, Chronically Ill - Head Exam Head Exam: ATRAUMATIC, NORMAL INSPECTION, NORMOCEPHALIC - Eye Exam Eye Exam: EOMI, Normal appearance, PERRL - ENT Exam ENT Exam: Mucous Membranes Moist - Neck Exam Neck exam: Positive for: Full Rom, Normal Inspection - Respiratory Exam Respiratory Exam: Rales, Rhonchi - Cardiovascular Exam Cardiovascular Exam: RRR, +S1, +S2 - GI/Abdominal Exam GI & Abdominal Exam: Normal Bowel Sounds, Soft. absent: Distended, Firm, Guarding, Organomegaly, Tenderness - Rectal Exam Rectal Exam: Deferred - Extremities Exam Extremities exam: Positive for: full ROM, normal inspection, pedal edema - Back Exam Back exam: NORMAL INSPECTION - Neurological Exam Neurological exam: Alert, Oriented x3 - Psychiatric Exam Psychiatric exam: Normal Affect, Normal Mood - Skin Skin Exam: Dry, Intact, Normal Color, Warm Results - Vital Signs Recent Vital Signs: Last Vital Signs Temp 97.8 F 04/15/18 23:35 Pulse 60 04/15/18 23:45 Resp 20 04/15/18 23:35 BP 100/67 04/15/18 23:35 Pulse Ox 100 04/15/18 23:35 - Labs Result Diagrams: 04/16/18 08:44 04/16/18 08:44 Labs: Laboratory Results - last 24 hr 04/15/18 04/15/18 08:19 08:19 WBC 10.5 RBC 4.08 L Hgb 12.1 Hct 36.7 MCV 89.9 MCH 29.7 MCHC 33.0 RDW 15.6 H Plt Count 131 MPV 7.3 Neut % (Auto) 75.6 H Lymph % (Auto) 11.9 L [place] % (Auto) 9.6 Eos % (Auto) 2.1 Baso % (Auto) 0.8 Neut # (Auto) 7.9 H Lymph # (Auto) 1.2 [place] # (Auto) 1.0 H Eos # (Auto) 0.2 Baso # (Auto) 0.1 Sodium 140 Potassium 4.4 Chloride 105 Carbon Dioxide 24 Anion Gap 14 BUN 24 H Creatinine 1.0 Est GFR ( Amer) > 60 Est GFR (Non-Af Amer) > 60 Random Glucose 84 Calcium 8.3 L Total Bilirubin 0.4 AST 29 ALT 18 L Alkaline Phosphatase 74 Total Protein 6.8 Albumin 3.8 Globulin 3.1 Albumin/Globulin Ratio 1.2 Assessment & Plan - Assessment and Plan (Free Text) Assessment: This is a 67yM with pmhx of COPD, HTN, HLD, CAD s/p CABG, PPM presenting to ER with complaints of SOB and atypical chest pain for a few days. 1. Acute CHF 2. COPD exacerbation 3. GERD Plan: -Continue supportive care -Respiratory management with COPD exacerbation -Acute CHF, further care per cardiology -Recommend PPI daily for GERD and in setting of aspirin and plavix to prevent ulcer formation -Recommend Pepcid bid prn heartburn -Pt will benefit from outpt EGD and colonoscopy -No GI intervention planned at this time in setting of acute medical issues -Followup outpt -Please call with any questions or concerns <Dmitri Keenan Y - Last Filed: 04/16/18 12:09> Meds - Medications Medications: Current Medications Al Hydrox/Mg Hydrox/Simethicone (Maalox 30 Ml) 30 ml PO Q4 PRN PRN Reason: Indigestion / Heartburn Last Admin: 04/16/18 03:05 Dose: 30 ml Albuterol/Ipratropium (Duoneb 3 Mg/0.5 Mg (3 Ml) Ud) 3 ml INH RQ6 [facility] Aspirin (Aspirin) 325 mg PO DAILY [facility] Last Admin: 04/16/18 10:04 Dose: 325 mg Carvedilol (Coreg) 3.125 mg PO Q12 [facility] Last Admin: 04/15/18 21:42 Dose: 3.125 mg Clopidogrel Bisulfate (Plavix) 75 mg PO DAILY [facility] Last Admin: 04/16/18 09:54 Dose: 75 mg Docusate Sodium (Colace) 100 mg PO TID [facility] Last Admin: 04/16/18 09:55 Dose: 100 mg Enalapril Maleate (Vasotec) 2.5 mg PO DAILY [facility] Last Admin: 04/15/18 09:53 Dose: Not Given Enoxaparin Sodium (Lovenox) 40 mg SC DAILY [facility] Last Admin: 04/16/18 09:54 Dose: 40 mg Famotidine (Pepcid) 20 mg IVP DAILY [facility] Last Admin: 04/15/18 09:46 Dose: 20 mg Furosemide (Lasix) 20 mg PO DAILY [facility] Last Admin: 04/15/18 09:52 Dose: 20 mg Methylprednisolone (Solu-Medrol) 40 mg IVP Q12H [facility] Last Admin: 04/16/18 09:53 Dose: 40 mg Nitroglycerin (Nitro-Bid 2% Oint) 0.5 ea TOP Q6 [facility] Last Admin: 04/16/18 06:01 Dose: Not Given Pantoprazole Sodium (Protonix Inj) 40 mg IVP DAILY [facility] Last Admin: 04/16/18 09:53 Dose: 40 mg Results - Vital Signs Recent Vital Signs: Last Vital Signs Temp 97.9 F 04/16/18 07:00 Pulse 62 04/16/18 07:00 Resp 20 04/16/18 07:00 BP 107/60 04/16/18 07:00 Pulse Ox 97 04/16/18 07:00 - Labs Result Diagrams: 04/16/18 08:44 04/16/18 08:44 Labs: Laboratory Results - last 24 hr 04/16/18 04/16/18 08:44 08:44 WBC 8.3 RBC 4.01 L Hgb 12.3 Hct 36.0 MCV 89.9 MCH 30.7 MCHC 34.1 RDW 15.2 H Plt Count 133 MPV 7.5 Neut % (Auto) 72.0 Lymph % (Auto) 16.6 L [place] % (Auto) 7.9 Eos % (Auto) 2.8 Baso % (Auto) 0.7 Neut # (Auto) 6.0 Lymph # (Auto) 1.4 [place] # (Auto) 0.7 Eos # (Auto) 0.2 Baso # (Auto) 0.1 Sodium 137 Potassium 4.8 Chloride 103 Carbon Dioxide 27 Anion Gap 12 BUN 22 H Creatinine 1.0 Est GFR ( Amer) > 60 Est GFR (Non-Af Amer) > 60 Random Glucose 101 Calcium 8.4 L Total Bilirubin 0.5 AST 30 ALT 19 L Alkaline Phosphatase 70 Total Protein 6.9 Albumin 3.7 Globulin 3.2 Albumin/Globulin Ratio 1.2 Attending/Attestation - Attestation I have personally seen and examined this patient.: Yes I have fully participated in the care of the patient.: Yes I have reviewed all pertinent clinical information: Yes Notes (Text): 04/16/18 12:03 I have seen and examined patient with GI fellow. Agree with above documentation with the following additions. In brief, this is a 67 year old male with history of COPD, CAD/CABG s/p PPM, CHF, HTN, who presents to hospital with complaint of atypical chest pain, currently being treated for CHF exacerbation. GI called for evaluation of heartburn. He describes sharp, 8/10 intensity epigastric pain radiating to middle of chest that is worse after meal consumption. This has been going on intermittently over the past several years but worse during hospitalization. He has not taken any acid suppressive therapy at home and denies nausea, vomiting, fever/chills. He claims that he has lost weight recently, but cannot quantify specific amount. He is tolerating his diet without difficulty. No prior endoscopic evaluation. Patient with prior heavy smoking history, quit 1.5 years ago. COPD CAD/ CABG CHF - atypical chest pain, acute exacerbation HTN Heartburn Weight loss - Diet as tolerated - Suggest use of PPI therapy in acute setting given progressive symptoms - Counseled patient regarding need for dietary and lifestyle modifications including avoidance of typical trigger foods, avoiding lying flat after meals, etc - Patient would certainly benefit from EGD evaluation for progressive heartburn in setting of weight loss and cigarette smoking history to exclude malignancy along with age appropriate screening colonoscopy. However, given acute CHF exacerbation will defer any procedure for time being. Suggest outpatient follow up and procedure when patient can be off plavix. Office contact information provided to patient. Will sign off case, please reconsult as necessary, thank you.
[2018-04-16 08:49] LABS: BASO # 0.1 K/uL (0.0-0.2); BASO % 0.7 % (0.0-2.0); EOS # 0.2 K/uL (0.0-0.7); EOS % 2.8 % (0.0-4.0); HEMOGLOBIN 12.3 g/dL (12.0-18.0); LYMPH # 1.4 K/uL (1.0-4.3); LYMPH % 16.6 % (20.0-40.0); MEAN CELL VOLUME 89.9 fL (80.0-94.0); MEAN CORPUSCULAR HEMOGLOBIN 30.7 pg (27.0-31.0); MEAN CORPUSCULAR HGB CONC 34.1 g/dL (33.0-37.0); MEAN PLATELET VOLUME 7.5 fL (7.2-11.7); MONO # 0.7 K/uL (0.0-0.8); MONO % 7.9 % (0.0-10.0); RBC 4.01 Mil/uL (4.40-5.90); RED CELL DISTRIBUTION WIDTH 15.2 % (11.5-14.5); WHITE BLOOD COUNT 8.3 K/uL (4.8-10.8)
[2018-04-16 09:06] LABS: ALB/GLOB RATIO 1.2 (1.0-2.1); ALBUMIN 3.7 g/dL (3.5-5.0); ALT/SGPT 19 U/L (21-72); AST/SGOT 30 U/L (17-59); BLOOD UREA NITROGEN 22 mg/dL (9-20); CALCIUM 8.4 mg/dl (8.6-10.4); GFR AFRICAN-AMERICAN > 60; GFR NON-AFRICAN AMERICAN > 60
[2018-04-16] MEDS: MethylPREDNISolone 40 mg Vial IVP SCH ×2 (09:53→22:11)
[2018-04-16] MEDS: Enoxaparin 40 mg Syringe SC SCH (09:54)
[2018-04-16] MEDS ORDERED: Pantoprazole 40 mg EC Tab PO SCH ×2 (10:00)
--- NOTE | 2018-04-16 12:58 | CP.PCM.PN ---
Subjective - Date & Time of Evaluation Date of Evaluation: 04/16/18 Time of Evaluation: 12:57 - Subjective Subjective: CHIEF COMPLAINTS TODAY : Patient has no further epigastric burning sensation. GI evaluation noted, continue Pepcid ROS. HEENT : N. Resp : No cough, wheezing ,pleuritic CP ,or hemoptysis Cardio : No anginal CP, PND, orthopnea, palpitation GI : No abd.pain, n/v ,diarrhea or GI bleeding . 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 Musculoskel : No joint swelling , Derm : No rash Psych : Normal affect. Ext : No swelling ,calf pain PE. Pt. is alert awake in no distress. V.S As noted in the chart Head ,ear nose,throat and eyes : Normal. Neck : Supple with normal carotids. Lungs:bilateral rhonchi and rales Heart : S1 & S2 normal with S4. No murmur. Abd : Soft non tender with normal bowel sounds. Neuro : Moves all ext. with no localized deficit. Ext : No edema with intact pulses.Non tender calves Derm : No rashes or decubitus ulcer. LABS/RADIOLOGY: echocardiogram showed mildly depressed left ventricular ejection fraction between 40 and 45% left atrial enlargement and mild mitral regurg ASSESSMENT/PLAN : Discharge planning Continue present cardiac medications Objective - Vital Signs/Intake and Output Vital Signs (last 24 hours): Temp Pulse Resp BP Pulse Ox 97.9 F 60 20 99/63 L 97 04/16/18 07:00 04/16/18 12:53 04/16/18 12:53 04/16/18 12:53 04/16/18 12:53 - Medications Medications: Current Medications Al Hydrox/Mg Hydrox/Simethicone (Maalox 30 Ml) 30 ml PO Q4 PRN PRN Reason: Indigestion / Heartburn Last Admin: 04/16/18 03:05 Dose: 30 ml Albuterol/Ipratropium (Duoneb 3 Mg/0.5 Mg (3 Ml) Ud) 3 ml INH RQ6 [facility] Aspirin (Aspirin) 325 mg PO DAILY [facility] Last Admin: 04/16/18 10:04 Dose: 325 mg Carvedilol (Coreg) 3.125 mg PO Q12 [facility] Clopidogrel Bisulfate (Plavix) 75 mg PO DAILY [facility] Last Admin: 04/16/18 09:54 Dose: 75 mg Docusate Sodium (Colace) 100 mg PO TID [facility] Last Admin: 04/16/18 09:55 Dose: 100 mg Enalapril Maleate (Vasotec) 2.5 mg PO DAILY [facility] Last Admin: 04/16/18 12:51 Dose: Not Given Enoxaparin Sodium (Lovenox) 40 mg SC DAILY [facility] Last Admin: 04/16/18 09:54 Dose: 40 mg Famotidine (Pepcid) 20 mg IVP DAILY [facility] Last Admin: 04/15/18 09:46 Dose: 20 mg Furosemide (Lasix) 20 mg PO DAILY [facility] Last Admin: 04/15/18 09:52 Dose: 20 mg Methylprednisolone (Solu-Medrol) 40 mg IVP Q12H [facility] Last Admin: 04/16/18 09:53 Dose: 40 mg Nitroglycerin (Nitro-Bid 2% Oint) 0.5 ea TOP Q6 [facility] Last Admin: 04/16/18 12:52 Dose: Not Given Pantoprazole Sodium (Protonix Inj) 40 mg IVP DAILY [facility] Last Admin: 04/16/18 09:53 Dose: 40 mg - Labs Labs: 04/16/18 08:44 04/16/18 08:44 PT 10.3 SECONDS (9.7-12.2) 04/13/18 03:34 INR 0.9 04/13/18 03:34 APTT 38 SECONDS (21-34) H 04/13/18 03:34
[2018-04-16] MEDS: Albuterol-Ipratrop 3 mg / 0.5 (3 ml) UD INH SCH ×2 (13:34→19:22)
[2018-04-17 00:36] VITALS: O2SAT 98
[2018-04-17] MEDS: Nitroglycerin 2% Ointment Foilpak UD TOP SCH ×3 (00:56→12:10)
[2018-04-17] MEDS: Albuterol-Ipratrop 3 mg / 0.5 (3 ml) UD INH SCH ×2 (01:57→07:14)
[2018-04-17] MEDS: Aluminum Hydroxide/Magnesium Hydroxide Susp (30 mL) PO PRN (06:51)
[2018-04-17 08:10] VITALS: BP 91/60; PULSE 61; TEMP 97.3
[2018-04-17 08:13] LABS: BASO % 0.2 % (0.0-2.0); EOS % 0.1 % (0.0-4.0); HEMOGLOBIN 10.9 g/dL (12.0-18.0); LYMPH # 0.7 K/uL (1.0-4.3); LYMPH % 8.1 % (20.0-40.0); MEAN CELL VOLUME 88.4 fL (80.0-94.0); MEAN CORPUSCULAR HEMOGLOBIN 30.5 pg (27.0-31.0); MEAN CORPUSCULAR HGB CONC 34.5 g/dL (33.0-37.0); MEAN PLATELET VOLUME 7.6 fL (7.2-11.7); MONO # 0.3 K/uL (0.0-0.8); MONO % 3.9 % (0.0-10.0); NEUT # 7.2 K/uL (1.8-7.0); NEUT % 87.7 % (50.0-75.0); PLATELET COUNT 162 K/uL (130-400); RBC 3.58 Mil/uL (4.40-5.90); RED CELL DISTRIBUTION WIDTH 14.9 % (11.5-14.5); WHITE BLOOD COUNT 8.2 K/uL (4.8-10.8)
[2018-04-17 08:23] LABS: ALB/GLOB RATIO 1.2 (1.0-2.1); ALBUMIN 3.6 g/dL (3.5-5.0); ALT/SGPT 26 U/L (21-72); AST/SGOT 29 U/L (17-59); BLOOD UREA NITROGEN 20 mg/dL (9-20); CALCIUM 8.7 mg/dl (8.6-10.4); GFR AFRICAN-AMERICAN > 60; GFR NON-AFRICAN AMERICAN > 60
[2018-04-17] MEDS: MethylPREDNISolone 40 mg Vial IVP SCH (09:51)
[2018-04-17] MEDS: Enoxaparin 40 mg Syringe SC SCH (09:53)
[2018-04-17 10:12] LABS: ANISOCYTOSIS SLIGHT; BURR CELLS SLIGHT; HYPOCHROMIC SLIGHT; LYMPHOCYTE 5 % (20-40); MONOCYTE 4 % (0-10); NEUTROPHIL 91 % (50-75); PLATELET ESTIMATE NORMAL (NORMAL); POIKILOCYTOSIS SLIGHT; TOTAL CELLS COUNTED 100
--- NOTE | 2018-04-17 12:11 | CARD ---
APPROVED REPORT EKG Measurement Heart [id number] <Conclusion> Atrial-paced rhythm with prolonged AV conduction Possible Inferior infarct, age undetermined ST & T wave abnormality, consider lateral ischemia Abnormal ECG
--- NOTE | 2018-04-17 13:06 | CP.PCM.PN ---
Subjective - Date & Time of Evaluation Date of Evaluation: 04/17/18 Time of Evaluation: 13:04 - Subjective Subjective: PT CLEARED FOR D/C HOME TODAY PER DR. HARRISON. ALSO CLEARED BY GI TEAM FOR OUTPATIENT F/U AND FURTHER W/U. DISCUSSED AT LENGTH WITH THE PT COMPLIANCE WITH LIFESTYLE CHANGES, DIET, AND MEDICATIONS. PT VERBALIZES SEVERAL TIMES THAT SOMETIMES HE CANNOT AFFORD MEDICINE AND HAS MEALS ON WHEELS THAT DOESN'T PROVIDE HIM WITH FOOD SATURDAYS AND SUNDAYS. NOTIFIED SW TO SEE IF THERE ARE ADDITIONAL PROGRAMS FOR THE PT IF HE QUALIFIES. I DISCUSSED F/U APPTS AND NEW RX WITH PT. HE VERBALIZES UNDERSTANDING.SEE BELOW FOR D/C INSTRUCTIONS. NO FURTHER ORDERS. -FOLLOW UP WITH DR. HARRISON OR YOUR PRIMARY DOCTOR IN THE OFFICE WITHIN 1 WEEK--- CALL THE OFFICE TO MAKE AN APPOINTMENT. -FOLLOW UP WITH DR. HARRISON (STOMACH DOCTOR) IN THE OFFICE WITHIN 2-3 WEEKS--- CALL THE OFFICE TO MAKE AN APPOINTMENT. DURING THIS VISIT DR. HARRISON WILL DISCUSS WITH YOU WHEN TO HAVE OUTPATIENT TESTING DONE. -CONTINUE HOME MEDICATIONS USUAL. REFILLS HAVE BEEN SENT TO YOUR PHARMACY. -NEW MEDICATIONS INCLUDE: 1) PEPCID (FAMOTIDINE) TAKE 1 TABLET A DAY FOR YOUR STOMACH. 2) OMEPRAZOLE TAKE 1 CAPSULE A DAY FOR YOUR STOMACH. -YOU MAY USE MAALOX DIRECTED OVER THE COUNTER IF YOU HAVE ACID RELFUX NOT RELIEVED WITH YOUR MEDICINE. -FOR FURTHER CONCERNS OR QUESTIONS, CONTACT DR. HARRISON'S OFFICE. Objective - Vital Signs/Intake and Output Vital Signs (last 24 hours): Temp Pulse Resp BP Pulse Ox 97.3 F L 61 20 91/60 L 98 04/17/18 08:00 04/17/18 08:00 04/17/18 08:00 04/17/18 09:53 04/17/18 08:00 - Medications Medications: Current Medications Al Hydrox/Mg Hydrox/Simethicone (Maalox 30 Ml) 30 ml PO Q4 PRN PRN Reason: Indigestion / Heartburn Last Admin: 04/17/18 06:51 Dose: 30 ml Albuterol/Ipratropium (Duoneb 3 Mg/0.5 Mg (3 Ml) Ud) 3 ml INH RQ6 [facility] Last Admin: 04/17/18 07:14 Dose: 3 ml Aspirin (Aspirin) 325 mg PO DAILY [facility] Last Admin: 04/17/18 09:52 Dose: 325 mg Carvedilol (Coreg) 3.125 mg PO Q12 [facility] Last Admin: 04/17/18 09:52 Dose: 3.125 mg Clopidogrel Bisulfate (Plavix) 75 mg PO DAILY [facility] Last Admin: 04/17/18 09:52 Dose: 75 mg Docusate Sodium (Colace) 100 mg PO TID [facility] Last Admin: 04/17/18 09:52 Dose: 100 mg Enalapril Maleate (Vasotec) 2.5 mg PO DAILY [facility] Last Admin: 04/17/18 09:53 Dose: Not Given Enoxaparin Sodium (Lovenox) 40 mg SC DAILY [facility] Last Admin: 04/17/18 09:53 Dose: 40 mg Famotidine (Pepcid) 20 mg PO DAILY [facility] Last Admin: 04/17/18 09:52 Dose: 20 mg Furosemide (Lasix) 20 mg PO DAILY [facility] Last Admin: 04/17/18 09:52 Dose: 20 mg Methylprednisolone (Solu-Medrol) 40 mg IVP Q12H [facility] Last Admin: 04/17/18 09:51 Dose: 40 mg Nitroglycerin (Nitro-Bid 2% Oint) 0.5 ea TOP Q6 [facility] Last Admin: 04/17/18 06:51 Dose: 0.5 ea - Labs Labs: 04/17/18 08:03 04/17/18 08:03 PT 10.3 SECONDS (9.7-12.2) 04/13/18 03:34 INR 0.9 04/13/18 03:34 APTT 38 SECONDS (21-34) H 04/13/18 03:34
--- NOTE | 2018-04-17 14:00 | PCM.HF ---
Heart Failure Core Measure - Heart Failure Ejection Fraction: 40 % or Greater YRIS Inhibitor Prescribed: Yes Beta-Phong Prescribed: Carvedilol Angiotensin II Receptor Phong Prescribed: No Contraindication/Reason for not providing: ON YRIS AnticoagulationTherapy for Atrial Fibrillation/Atrialflutter: No Contraindication/Reason for not providing: NO AFIB Aldosterone Antagonist Prescribed: No Contraindication/Reason for not providing: EF >40 Hydralazine Nitrate Prescribed: No Contraindication/Reason for not providing: EF >40 Implantable Cardioverter Defibrillator Therapy: No Contraindication/Reason for not providing: HAS A PPM Cardiac Resynchronization Therapy Prescribed: No Contraindication/Reason for not providing: HAS A PPM - Follow up Will be discharged to: Home Follow Up Date (must be within 7 days from discharge): 04/24/18 Follow Up Time: 09:00
--- NOTE | 2018-04-17 14:11 | CP.PCM.DIS ---
Provider - Provider Date of Admission: 04/13/18 04:27 Attending physician: Merlyn Duque MD Time Spent in preparation of Discharge (in minutes): 30 Hospital Course - Lab Results Lab Results: Most Recent Lab Values WBC 8.2 K/uL (4.8-10.8) 04/17/18 08:03 RBC 3.58 Mil/uL (4.40-5.90) L 04/17/18 08:03 Hgb 10.9 g/dL (12.0-18.0) L 04/17/18 08:03 Hct 31.6 % (35.0-51.0) L 04/17/18 08:03 MCV 88.4 fL (80.0-94.0) 04/17/18 08:03 MCH 30.5 pg (27.0-31.0) 04/17/18 08:03 MCHC 34.5 g/dL (33.0-37.0) 04/17/18 08:03 RDW 14.9 % (11.5-14.5) H 04/17/18 08:03 Plt Count 162 K/uL (130-400) 04/17/18 08:03 MPV 7.6 fL (7.2-11.7) 04/17/18 08:03 Neut % (Auto) 87.7 % (50.0-75.0) H 04/17/18 08:03 Lymph % (Auto) 8.1 % (20.0-40.0) L 04/17/18 08:03 Bertie % (Auto) 3.9 % (0.0-10.0) 04/17/18 08:03 Eos % (Auto) 0.1 % (0.0-4.0) 04/17/18 08:03 Baso % (Auto) 0.2 % (0.0-2.0) 04/17/18 08:03 Neut # (Auto) 7.2 K/uL (1.8-7.0) H 04/17/18 08:03 Lymph # (Auto) 0.7 K/uL (1.0-4.3) L 04/17/18 08:03 Bertie # (Auto) 0.3 K/uL (0.0-0.8) 04/17/18 08:03 Eos # (Auto) 0.0 K/uL (0.0-0.7) 04/17/18 08:03 Baso # (Auto) 0.0 K/uL (0.0-0.2) 04/17/18 08:03 Neutrophils % (Manual) 91 % (50-75) H 04/17/18 08:03 Lymphocytes % (Manual) 5 % (20-40) L 04/17/18 08:03 Monocytes % (Manual) 4 % (0-10) 04/17/18 08:03 Platelet Estimate Normal (NORMAL) 04/17/18 08:03 Hypochromasia (manual) Slight 04/17/18 08:03 Poikilocytosis (manual Slight 04/17/18 08:03 Anisocytosis (manual) Slight 04/17/18 08:03 Lisa Cells Slight 04/17/18 08:03 PT 10.3 SECONDS (9.7-12.2) 04/13/18 03:34 INR 0.9 04/13/18 03:34 APTT 38 SECONDS (21-34) H 04/13/18 03:34 Sodium 139 mmol/L (132-148) 04/17/18 08:03 Potassium 4.6 mmol/L (3.6-5.2) 04/17/18 08:03 Chloride 104 mmol/L (98-107) 04/17/18 08:03 Carbon Dioxide 25 mmol/L (22-30) 04/17/18 08:03 Anion Gap 14 (10-20) 04/17/18 08:03 BUN 20 mg/dL (9-20) 04/17/18 08:03 Creatinine 1.1 mg/dL (0.8-1.5) 04/17/18 08:03 Est GFR ( Amer) > 60 04/17/18 08:03 Est GFR (Non-Af Amer) > 60 04/17/18 08:03 Random Glucose 146 mg/dL (75-110) H 04/17/18 08:03 Calcium 8.7 mg/dl (8.6-10.4) 04/17/18 08:03 Total Bilirubin 0.8 mg/dL (0.2-1.3) 04/17/18 08:03 AST 29 U/L (17-59) 04/17/18 08:03 ALT 26 U/L (21-72) 04/17/18 08:03 Alkaline Phosphatase 78 U/L (38-126) 04/17/18 08:03 Total Creatine Kinase 90 U/L (55-170) 04/13/18 19:41 CK-MB (Mass) 1.40 ng/mL (0.0-3.38) 04/13/18 19:41 Troponin I < 0.0120 ng/mL (0.00-0.120) 04/13/18 19:41 NT-Pro-B Natriuret Pep 804 pg/mL (0-900) 04/13/18 03:34 Total Protein 6.8 g/dL (6.3-8.3) 04/17/18 08:03 Albumin 3.6 g/dL (3.5-5.0) 04/17/18 08:03 Globulin 3.1 gm/dL (2.2-3.9) 04/17/18 08:03 Albumin/Globulin Ratio 1.2 (1.0-2.1) 04/17/18 08:03 Lipase 59 U/L (23-300) 04/13/18 03:34 - Hospital Course Hospital Course: Patient is admitted from [facility] emergency room with shortness of breath and atypical chest pain. Patient has a history of coronary artery disease with CABG, ran out of the medication due to lack of funds, became short of breath with atypical chest pain. In the emergency room patient was found to be in congestive heart failure responded with IV Lasix and is admitted for further treatment PAST HIST. Patient has been admitted in [facility] for multiple times for CHF and chest pain. Patient has a CABG pulled details not available but had a cardiac cath done in 2017 showed patent grafts patient had an echo done last year which showed mild LV dysfunction with EF of 45%. Patient had a sinus bradycardia during that admission and since then patient has DDD pacemaker PATIENT WAS ADMITTED TO TELEMETRY. cARDIAC ENZYMES WERE NEGATIVE 3. pATIENT RESPONDED TO MEDICATIONS PRESCRIBED eCHOCARDIOGRAM SHOWED MILD lv DYSFUNCTION LEFT VENTRICLE EJECTION FRACTION OF 40 -45% WITH GENERALIZED HYPOKINETIC VENTRICLE.CARDIAC MONITORING DURING THE HOSPITALIZATION SHOWED UNIFOCAL pvc WHICH HAS BEEN PRESENT IN THE PAST pATIENT ALSO COMPLAINED OF SOME BURNING SENSATION IN THE EPIGASTRIC REGION. gi EVALUATION WAS REQUESTED AND PATIENT RESPONDED WITH pEPCID AND mAALOX. pATIENT STATES THAT HE HAS A HISTORY OF GASTRITIS IN THE PAST. cURRENTLY PATIENT IS STABLE WILL DISCHARGE. pATIENT ALSO WAS REFERRED TO [facility] EM[facility]GENC[facility]PART[facility] FOR FURTHER EVALUATION OF HIS INSURANCE NEEDS AND HIS MEDICATIONS WHICH HE CURRENTLY CANNOT AFFORD TO BUY. pATIENT WAS INSTRUCTED TO FOLLOW-UP WITH ME IN 1 WEEK Discharge Exam - Head Exam Head Exam: ATRAUMATIC, NORMAL INSPECTION, NORMOCEPHALIC Discharge Plan - Discharge Medications Prescriptions: Carvedilol [Coreg] 3.125 mg PO Q12 #60 tab Aspirin [Ecotrin] 81 mg PO DAILY #30 tabec Furosemide [Lasix] 20 mg PO DAILY #30 tab Omeprazole 20 mg PO DAILY #30 tablet. Famotidine [Pepcid] 20 mg PO DAILY #30 tab Clopidogrel [Plavix] 75 mg PO DAILY #30 tab Enalapril Maleate [Vasotec] 2.5 mg PO DAILY #30 tab - Follow Up Plan Condition: FAIR Disposition: HOME/ ROUTINE Instructions: Heart Failure, Adult (DC), Shortness of Breath (Dyspnea) (DC), Chest Pain (DC), Famotidine, Omeprazole Additional Instructions: -FOLLOW UP WITH DR. DUQUE OR YOUR PRIMARY DOCTOR IN THE OFFICE WITHIN 1 WEEK--- CALL THE OFFICE TO MAKE AN APPOINTMENT. -FOLLOW UP WITH DR. HARRISON (STOMACH DOCTOR) IN THE OFFICE WITHIN 2-3 WEEKS--- CALL THE OFFICE TO MAKE AN APPOINTMENT. DURING THIS VISIT DR. HARRISON WILL DISCUSS WITH YOU WHEN TO HAVE OUTPATIENT TESTING DONE. -CONTINUE HOME MEDICATIONS USUAL. REFILLS HAVE BEEN SENT TO YOUR PHARMACY. -NEW MEDICATIONS INCLUDE: 1) PEPCID (FAMOTIDINE) TAKE 1 TABLET A DAY FOR YOUR STOMACH. 2) OMEPRAZOLE TAKE 1 CAPSULE A DAY FOR YOUR STOMACH. -YOU MAY USE MAALOX DIRECTED OVER THE COUNTER IF YOU HAVE ACID RELFUX NOT RELIEVED WITH YOUR MEDICINE. -FOR FURTHER CONCERNS OR QUESTIONS, CONTACT DR. DUQUE'S OFFICE. Referrals: Dmitri Harrison MD [Staff Provider] - Merlyn Duque MD [Staff Provider] -
== END 2018-04-17 14:44 | disposition home or self-care (01) | DRG 292 ==
LOC: C.ER 03:05 → C.9E 04:27 → C.5S 12:29
PROVIDERS: ADMIT Internal Medicine Cardiovascular Disease; ATTEND Internal Medicine Cardiovascular Disease
DX: I11.0 Hypertensive heart disease with heart failure (principal); J44.1 Chronic obstructive pulmonary disease with (acute) exacerbation; E78.00 Pure hypercholesterolemia, unspecified; I50.23 Acute on chronic systolic (congestive) heart failure; I25.10 Atherosclerotic heart disease of native coronary artery without angina pectoris; I48.91 Unspecified atrial fibrillation; Z87.891 Personal history of nicotine dependence; Z95.0 Presence of cardiac pacemaker; Z95.1 Presence of aortocoronary bypass graft; Z95.5 Presence of coronary angioplasty implant and graft; K21.9 Gastro-esophageal reflux disease without esophagitis

== ENCOUNTER 2018-04-19 05:03 | Inpatient (IN) | payer MEDICARE ==
[2018-04-19 05:06] VITALS: BMI 23.0
[2018-04-19 05:37] LABS: BASO # 0.1 K/uL (0.0-0.2); BASO % 1.2 % (0.0-2.0); EOS # 0.3 K/uL (0.0-0.7); EOS % 4.5 % (0.0-4.0); LYMPH # 1.3 K/uL (1.0-4.3); LYMPH % 18.9 % (20.0-40.0); MEAN CELL VOLUME 89.1 fL (80.0-94.0); MEAN CORPUSCULAR HEMOGLOBIN 29.4 pg (27.0-31.0); MEAN PLATELET VOLUME 7.1 fL (7.2-11.7); MONO % 14.2 % (0.0-10.0); NEUT # 4.3 K/uL (1.8-7.0); NEUT % 61.2 % (50.0-75.0); NRBC % 0.1 % (0.0-2.0); RBC 3.74 Mil/uL (4.40-5.90); RED CELL DISTRIBUTION WIDTH 15.3 % (11.5-14.5); WHITE BLOOD COUNT 7.1 K/uL (4.8-10.8)
--- NOTE | 2018-04-19 05:41 | C.PDOC ---
History Of Present Illness 67 y/o male +smoker, lives alone, presents to the ED for chief complaint of shortness of breath. Of note, patient is a very poor historian. States he has felt short of breath for weeks. Admits to cough with faint sputum production. Denies any prior pulmonary disease such as COPD, emphysema. Prior records demonstrate PMHx is significant for CHF, CAD, s/p CABG, and s/p DDD pacemaker. Patient otherwise denies any fever, chest pain, palpitations, dizziness, headache, or weakness. Patient states the SOB is no worse tonight, he only came in because he could not sleep. No other history available. Seen here on for similar complaint, and was admitted to Dr. Duque at that time. Time Seen by Provider: 04/19/18 05:21 Chief Complaint (Nursing): Shortness Of Breath History Per: Patient History/Exam Limitations: no limitations Onset/Duration Of Symptoms: Days Current Symptoms Are (Timing): Still Present Past Medical History Reviewed: Historical Data, Nursing Documentation, Vital Signs Vital Signs: Last Vital Signs Temp 97.5 F L 04/20/18 16:00 Pulse 61 04/20/18 16:00 Resp 20 04/20/18 16:00 BP 103/57 L 04/20/18 16:00 Pulse Ox 98 04/20/18 16:00 - Medical History PMH: Anemia, Asthma, Atrial Fibrillation, Bronchitis, CAD, Cardia Arrhythmia, CHF, COPD, Emphysema, HTN, Hypercholesterolemia, Malignancy (right lung mass), Seizures Denies: Diabetes, Hepatitis, HIV, Chronic Kidney Disease, Sexually Transmitted Disease Surgical History: CABG (x3), Coronary Stent (x3), Pacemaker - [facility] Procedures FLUOROSCOPY OF LEFT HEART USING OTHER CONTRAST (01/22/17) INSERT PACE. DUAL JHON IN CHEST SUBCU/FASCIA, OPEN (02/17/17) INSERTION OF PACEMAKER LEAD INTO R VENTRICLE, PERC APPROACH (02/17/17) INSERTION OF PACEMAKER LEAD INTO RIGHT ATRIUM, PERC APPROACH (02/17/17) INTRODUCTION OF SERUM/TOX/VACCINE INTO MUSCLE, PERC APPROACH (01/22/17) MEASURE OF CARDIAC SAMPL & PRESSURE, L HEART, PERC APPROACH (01/22/17) Family History: States: Unknown Family Hx - Social History Hx Alcohol Use: Yes Hx Substance Use: No - Immunization History Hx Tetanus Toxoid Vaccination: No Hx Influenza Vaccination: No Hx Pneumococcal Vaccination: No Review Of Systems Except As Marked, All Systems Reviewed And Found Negative. Constitutional: Negative for: Fever, Chills Cardiovascular: Negative for: Chest Pain, Palpitations Respiratory: Positive for: Cough, Shortness of Breath, Sputum Neurological: Negative for: Weakness, Headache, Dizziness Physical Exam - Physical Exam Appears: No Acute Distress, Other (Appears older than stated age, AAOx3, PulseOx is 85% on room air) Skin: Dry, Pale Head: Atraumatic, Normacephalic Eye(s): bilateral: Normal Inspection, PERRL, EOMI Neck: Normal ROM, Supple Chest: Symmetrical Cardiovascular: Rhythm Regular, No Murmur (or heaves/thrills), No JVD, Other (S1 , S2 are wnl) Respiratory: Decreased Breath Sounds (diminished bilaterally), No Rales, Rhonchi (Coarse rhonchi appreciated on the left) Gastrointestinal/Abdominal: Bowel Sounds (active), Soft, No Tenderness Extremity: Bilateral: Atraumatic, Normal Color And Temperature (without edema, clubbing, or cyanosis), Normal ROM Pulses: Left Dorsalis Pedis: Normal, Right Dorsalis Pedis: Normal Neurological/Psych: Oriented x3, Normal Speech, Normal Cranial Nerves, Other ( No focal deficits) ED Course And Treatment - Laboratory Results Result Diagrams: 04/19/18 05:34 04/19/18 05:34 ECG: Interpreted By Me, Viewed By Me ECG Rhythm: A Paced ECG Interpretation: No Changes From Prior Interpretation Of ECG: Atrial paced rhythm, with 100% capture, Q waves inferiorly in leads 2, 3, aVF, flipped Ts in leads 4, 5, and 6. No ectopy appreciated. No acute changes when compared to prior EKG. Rate From EC O2 Sat by Pulse Oximetry: 95 (NC) Pulse Ox Interpretation: Normal - Radiology CXR: Interpreted by Me, Viewed By Me CXR Interpretation: Yes: Cardiomegaly. No: Infiltrates Medical Decision Making Medical Decision Making: Impression: Shortness of breath, differential diagnosis includes CHF, COPD, pneumonia Initial Plan: --Routine blood work --Blood cultures --ABG --Flu swab --Chest x-ray --EKG --Duoneb x1 --Albuterol neb x1 --Solu-Medrol 125 mg IVP --Peak flow pre/post tx Progress/Updates: EKG shows no changes from prior. CXR demonstrates cardiomegaly, no infiltrates. Labs reviewed, flu negative. BNP elevated 1790. 6:44am Case discussed with Dr. Duque, medicine on-call, who accepts patient for admission. Disposition Counseled Patient/Family Regarding: Studies Performed, Diagnosis - Disposition Disposition: HOSPITALIZED Disposition Time: 06:45 Condition: FAIR - POA Present On Arrival: None - Clinical Impression Clinical Impression: COPD exacerbation, CHF exacerbation - Scribe Statement The provider has reviewed the documentation as recorded by the Scribe (Park Rogers) Provider Attestation: All medical record entries made by the Scribe were at my direction and personally dictated by me. I have reviewed the chart and agree that the record accurately reflects my personal performance of the history, physical exam, medical decision making, and the department course for this patient. I have also personally directed, reviewed, and agree with the discharge instructions and disposition.
[2018-04-19] MEDS ORDERED: Albuterol 0.083% Inhal Sol (2.5 mg/3 mL) UD INH STA (05:46)
[2018-04-19] MEDS ORDERED: Ipratropium 0.02% Inhal Soln (0.5 mg/2.5 ml) UD IH STA (05:47)
[2018-04-19 05:51] LABS: ARTERIAL BLOOD GAS HCO3 25.3 mmol/L (21-28); ARTERIAL BLOOD GAS HEMOGLOBIN 13.6 g/dL (11.7-17.4); ARTERIAL BLOOD GAS O2 SAT 96.9 % (95-98); ARTERIAL BLOOD GAS PCO2 36 mm/Hg (35-45); ARTERIAL BLOOD GAS PH 7.44 (7.35-7.45); ARTERIAL BLOOD GAS PO2 72 mm/Hg (80-100); ARTERIAL BLOOD GAS TCO2 25.6 mmol/L (22-28)
[2018-04-19] MEDS ORDERED: Albuterol 0.083% Inhal Sol (2.5 mg/3 mL) UD ONE (06:07)
[2018-04-19] MEDS ORDERED: Ipratropium 0.02% Inhal Soln (0.5 mg/2.5 ml) UD IH ONE (06:08)
[2018-04-19 06:12] LABS: B-TYPE NATRIURETIC PEPTIDE 1790 pg/mL (0-900)
[2018-04-19 06:16] LABS: ALB/GLOB RATIO 1.2 (1.0-2.1); ALBUMIN 3.7 g/dL (3.5-5.0); ALT/SGPT 21 U/L (21-72); AST/SGOT 31 U/L (17-59); BLOOD UREA NITROGEN 33 mg/dL (9-20); CALCIUM 8.6 mg/dl (8.6-10.4); GFR AFRICAN-AMERICAN > 60; GFR NON-AFRICAN AMERICAN > 60
[2018-04-19] MEDS ORDERED: Albuterol-Ipratrop 3 mg / 0.5 (3 ml) UD INH PRN (06:49)
[2018-04-19] MEDS: MethylPREDNISolone 40 mg Vial IVP SCH ×3 (06:56→18:12)
[2018-04-19] MEDS ORDERED: Home Med 1 UNIT (Omeprazole [Omeprazole] 20 MG) PO SCH (10:00)
[2018-04-19] MEDS: Pantoprazole 40 mg EC Tab PO SCH (10:26)
[2018-04-19] MEDS: Enoxaparin 40 mg Syringe SC SCH (10:44)
--- NOTE | 2018-04-19 11:46 | RAD ---
PROCEDURE: CHEST RADIOGRAPH, 1 VIEW HISTORY: SOB COMPARISON: 01/05/2018. FINDINGS: LUNGS: The right lung is well inflated and clear. There is low lung volume on the left. PLEURA: No pneumothorax. There is left pleural thickening. CARDIOVASCULAR: There is mild cardiomegaly. Status post CABG. There is stable position of left-sided pacemaker. OSSEOUS STRUCTURES: No significant abnormalities. VISUALIZED UPPER ABDOMEN: Normal. OTHER FINDINGS: None. IMPRESSION: No significant interval change. No acute findings.
--- NOTE | 2018-04-19 12:31 | CP.PCM.HP ---
History of Present Illness - History of Present Illness History of Present Illness: COMPREHENSIVE HISTORY & PHYSICAL EXAM HPI Patient is readmitted after 48 hours with increasing shortness of breath and wheezing and coughing. Patient was admitted recently in [facility] discharge about 48 hours ago for CHF. Patient was treated with Lasix and improved and was discharged in a stable condition. Apparently patient does not have funds to buy his medications and patient was without medication and again in the similar situation in the previous admission patient got more short of breath with deterioration in his medical condition. Patient has a history of cardiomyopathy with left ventricle ejection fraction of 40-45% with normal stress test done recently in [facility] patient has COPD hypertension diabetes PAST HIST. patient has a history of CABG patient does not remember the time and the place Patient has history of DDD pacemaker inserted due to sinus bradycardia Last admission patient had acute exacerbation of gastritis which was relieved with Pepcid and Maalox PERSONAL HIST: Smoking. N Alcohol. N Allergy N Travel_- . FAMILY HIST : ROS : Constitutional: Negative for weight change, chills, night sweats, Eyes: Negative for redness, swelling, itching, discharge, vision changes, blurry vision, double vision, glaucoma, cataracts, Ears: Negative for hearing loss, ringing, , tinnitus, vertigo Nose: Negative for rhinorrhea, stuffiness, sniffing, itching, postnasal drip, discoloration, nasal congestion and epistaxis. Throat: Negative for throat clearing, sore throat, hoarseness, difficulty swallowing and difficulty speaking. Respiratory: Positive for cough expectoration and wheezing no hemoptysis Cardiovascular: Negative for chest pain, palpitations, orthopnea, PND, Edema of legs, leg cramps, angina, claudication, , irregular heartbeat, Neurology: Negative for irritability, muscle weakness, numbness and tingling, seizures, tremors, migraines, slurred speech, syncope, memory loss, mood changes , recurrent headaches Gastrointestinal: Negative for difficulty swallowing, diarrhea, constipation, black stools, rectal bleeding, nausea, flatulence, reflux, poor appetite, changes in bowel habits, abdominal pain Genitourinary: Negative for frequent urination, hematuria, discharge, incontinence, urinary retention, frequent UTI, Psychiatric: Negative for depression, anxiety/panic, suicidal tendencies, Musculoskeletal: Negative for swollen joints, back pain, , neck pain, morning stiffness of joints, . Skin: Negative for rash, ulcers, itching, dry skin and pigmented lesions. P/E: Constitutional: Appears stated age and in no apparent distress. Head: Normocephalic. Ears: External ear canals patent without inflammation. Tympanic membranes intact with normal light reflex and landmark. Eyes: Pupils are central, bilaterally equal, symmetrical and reacts to light with normal movements and no icterus or pallor. Nose: External nares are patent. Mucosa is pink Mouth-Throat: Good general appearance and condition. No post-pharyngeal/oropharyngeal erythema and tonsillar hypertrophy. Good dental hygiene. Neck-Lymphatic: Neck is supple with normal ROM, no thyromegaly, lymph nodes or masses. JVD is normal with no carotid bruit. Lungs bilateral inspiratory and expiratory wheezing no rales Cardiovascular: S1 and S2 are normal with no murmurs, gallops and rub. GI Exam: No hepatomegaly. Abdomen is soft and non-tender. No Organomegaly , masses or hernias are evident and bowel sounds are normal and active. Neurology: Higher function and all cranial nerves intact, with no gross motor or sensory deficit. Superficial and deep reflexes are normal with downwards planters. No cerebellar deficit with normal gait. Musculoskeletal: No tender spots with normal curvature of the spine with no swelling or restricted ROM of the small and large joints. Extremities: Homans sign absent. Intact pulses with no pitting edema, calf tenderness or skin color changes. Skin: No rash, eruptions or abnormal skin pigmentation LAB/RADIOLOGY: ASSESMENT : Acute exacerbation of COPD. History of congestive heart failure with reduced ejection fraction. Hypertension history of CABG, details not available DDD pacemaker History of gastritis. PLAN: Nebulizer steroids and IV antibiotics. Present on Admission - Present on Admission Any Indicators Present on Admission: No Past Patient History - Infectious Disease Hx of Infectious Diseases: None - Past Medical History & Family History Past Medical History?: Yes - Past Social History Smoking Status: Former Smoker - CARDIAC Hx Atrial Fibrillation: Yes Hx Cardia Arrhythmia: Yes Hx Congestive Heart Failure: Yes Hx Hypercholesterolemia: Yes Hx Hypertension: Yes Hx Pacemaker: Yes - PULMONARY Hx Asthma: Yes Hx Bronchitis: Yes Hx Chronic Obstructive Pulmonary Disease (COPD): Yes Hx Emphysema: Yes - NEUROLOGICAL Hx Seizures: Yes - HEENT Hx HEENT Problems: No - RENAL Hx Chronic Kidney Disease: No - ENDOCRINE/METABOLIC Hx Endocrine Disorders: No - HEMATOLOGICAL/ONCOLOGICAL Hx Anemia: Yes Hx Human Immunodeficiency Virus (HIV): No - INTEGUMENTARY Hx Dermatological Problems: No - MUSCULOSKELETAL/RHEUMATOLOGICAL Hx Falls: No - GASTROINTESTINAL Hx Gastrointestinal Disorders: No - GENITOURINARY/GYNECOLOGICAL Hx Sexually Transmitted Disorders: No - PSYCHIATRIC Hx Substance Use: No - SURGICAL HISTORY Hx Coronary Artery Bypass Graft: Yes (x3) Hx Coronary Stent: Yes (x3) - ANESTHESIA Hx Anesthesia: Yes Hx Anesthesia Reactions: No Hx Malignant Hyperthermia: No Meds Allergies/Adverse Reactions: Allergies Allergy/AdvReac Type Severity Reaction Status Date / Time No Known Allergies Allergy Verified 04/19/18 05:15 Results - Vital Signs Recent Vital Signs: Last Vital Signs Temp 97.5 F L 04/19/18 07:30 Pulse 62 04/19/18 10:25 Resp 20 04/19/18 11:01 BP 125/79 04/19/18 10:43 Pulse Ox 99 04/19/18 07:30 - Labs Result Diagrams: 04/19/18 05:34 04/19/18 05:34 Labs: Laboratory Results - last 24 hr 04/19/18 04/19/18 04/19/18 05:28 05:34 05:34 WBC 7.1 RBC 3.74 L Hgb 11.0 L Hct 33.3 L MCV 89.1 MCH 29.4 MCHC 33.0 RDW 15.3 H Plt Count 202 MPV 7.1 L Neut % (Auto) 61.2 Lymph % (Auto) 18.9 L Heard % (Auto) 14.2 H Eos % (Auto) 4.5 H Baso % (Auto) 1.2 Neut # (Auto) 4.3 Lymph # (Auto) 1.3 Heard # (Auto) 1.0 H Eos # (Auto) 0.3 Baso # (Auto) 0.1 Puncture Site pCO2 pO2 HCO3 ABG pH ABG Total CO2 ABG O2 Saturation ABG Base Excess ABG Hemoglobin ABG Carboxyhemoglobin POC ABG HHb (Measured) ABG Methemoglobin Ant Test A-a O2 Difference Respiratory Index Hgb O2 Saturation Liter Flow FiO2 Sodium 138 Potassium 4.6 Chloride 104 Carbon Dioxide 25 Anion Gap 14 BUN 33 H Creatinine 1.1 Est GFR ( Amer) > 60 Est GFR (Non-Af Amer) > 60 Random Glucose 108 Calcium 8.6 Total Bilirubin 0.3 AST 31 ALT 21 Alkaline Phosphatase 66 Troponin I < 0.0120 NT-Pro-B Natriuret Pep 1790 H Total Protein 6.8 Albumin 3.7 Globulin 3.1 Albumin/Globulin Ratio 1.2 Influenza Typ A,B (EIA) Negative for flu a/b 04/19/18 05:45 WBC RBC Hgb Hct MCV MCH MCHC RDW Plt Count MPV Neut % (Auto) Lymph % (Auto) Heard % (Auto) Eos % (Auto) Baso % (Auto) Neut # (Auto) Lymph # (Auto) Heard # (Auto) Eos # (Auto) Baso # (Auto) Puncture Site Rb pCO2 36 pO2 72 L HCO3 25.3 ABG pH 7.44 ABG Total CO2 25.6 ABG O2 Saturation 96.9 ABG Base Excess 0.6 ABG Hemoglobin 13.6 ABG Carboxyhemoglobin 1.6 H POC ABG HHb (Measured) 3.0 ABG Methemoglobin 0.9 Ant Test Na A-a O2 Difference 111.0 Respiratory Index 1.5 Hgb O2 Saturation 94.5 L Liter Flow 3.0 FiO2 32.0 Sodium Potassium Chloride Carbon Dioxide Anion Gap BUN Creatinine Est GFR ( Amer) Est GFR (Non-Af Amer) Random Glucose Calcium Total Bilirubin AST ALT Alkaline Phosphatase Troponin I NT-Pro-B Natriuret Pep Total Protein Albumin Globulin Albumin/Globulin Ratio Influenza Typ A,B (EIA)
[2018-04-19 14:05] LABS: CK-MB 1.89 ng/mL (0.0-3.38)
[2018-04-19 21:50] LABS: CK-MB 1.35 ng/mL (0.0-3.38)
[2018-04-20] MEDS: MethylPREDNISolone 40 mg Vial IVP SCH ×4 (00:46→18:55)
[2018-04-20] MEDS: Enoxaparin 40 mg Syringe SC SCH (10:13)
[2018-04-20] MEDS: Pantoprazole 40 mg EC Tab PO SCH (10:16)
--- NOTE | 2018-04-20 14:16 | PQF ---
PROVIDER RESPONSE TEXT: Cardiomyopathy is probably multi etiology, ischemic/ hypertensive REVIEWER QUERY TEXT: Cardiomyopathy Type Cardiomyopathy is documented in the Medical Record. Please specify the type Such as: -- Alcoholic -- Congestive -- Constrictive -- Dilated -- Hypertensive -- Ischemic -- Obstructive Hypertrophic - IHSS -- Other Hypertrophic -- Other, please specify The patient's Clinical Indicators include: 67 Y O M with Hx CHF, COPD, Asthma,CAD, CABG, Coronary Stent ( X3) , Pacemaker Admitted for Exacerbation COPD, CHF Exacerbation Query created by: Cheryl Mccann on 04/19/2018 3:00 PM PROVIDER RESPONSE TEXT: Acute on chronic systolic heart failure REVIEWER QUERY TEXT: CHF Acuity and Type Congestive Heart Failure is documented in the Medical Record. Please document the type and acuity (in cludes probable or suspected) Such as: Type: -- Systolic -- Diastolic -- Combined -- Other, please specify Acuity: -- Acute -- Chronic -- Acute on chronic -- Other, please specify Also please document the underlying cause of the CHF (includes probable or suspected) The patient's Clinical Indicators include: 67 Y O M with Hx COPD, Asthma, CHF, HTN, CABG, Stents (X3) , Pacemaker Admitted with Exacerbation of COPD and CHF Exacerbation Pro-BNP 1790 PN: History of congestive heart failure with reduced ejection fraction. left ventricle ejection fr action of 40-45% Rx: Lasix Query created by: Cheryl Mccann on 04/19/2018 3:05 PM Electronically signed by: Merlyn Duque MD 04/20/2018 2:14 PM
--- NOTE | 2018-04-20 14:17 | CP.PCM.PN ---
Subjective - Date & Time of Evaluation Date of Evaluation: 04/20/18 Time of Evaluation: 14:15 - Subjective Subjective: CHIEF COMPLAINTS TODAY : patient has less shortness of breath, walking to the bathroom with no complaints. No chest pain Patient still has wheezing mild cough no expectoration ROS. HEENT : N. Resp : No hemoptysis Cardio : No anginal CP, PND, orthopnea, palpitation GI : No abd.pain, n/v ,diarrhea or GI bleeding . 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 Musculoskel : No joint swelling , Derm : No rash Psych : Normal affect. Ext : No swelling ,calf pain PE. Pt. is alert awake in no distress. V.S As noted in the chart Head ,ear nose,throat and eyes : Normal. Neck : Supple with normal carotids. Lungs: bilateral basal rhonchi, no rales Heart : S1 & S2 normal with S4. No murmur. Abd : Soft non tender with normal bowel sounds. Neuro : Moves all ext. with no localized deficit. Ext : No edema with intact pulses.Non tender calves Derm : No rashes or decubitus ulcer. LABS/RADIOLOGY: ASSESSMENT/PLAN : CHF is improving Continue IV steroids nebulizer and antibiotic Objective - Vital Signs/Intake and Output Vital Signs (last 24 hours): Temp Pulse Resp BP Pulse Ox 97.3 F L 60 20 124/67 97 04/20/18 07:00 04/20/18 07:00 04/20/18 07:00 04/20/18 10:16 04/20/18 07:00 - Medications Medications: Current Medications Al Hydrox/Mg Hydrox/Simethicone (Maalox 30 Ml) 30 ml PO Q4 PRN PRN Reason: Indigestion / Heartburn Albuterol/Ipratropium (Duoneb 3 Mg/0.5 Mg (3 Ml) Ud) 3 ml INH RQ4 PRN PRN Reason: Shortness of Breath Amiodarone HCl (Cordarone) 200 mg PO TID [facility] Last Admin: 04/20/18 13:50 Dose: 200 mg Aspirin (Ecotrin) 81 mg PO DAILY [facility] Last Admin: 04/20/18 10:14 Dose: 81 mg Carvedilol (Coreg) 3.125 mg PO Q12 [facility] Last Admin: 04/20/18 10:16 Dose: 3.125 mg Clopidogrel Bisulfate (Plavix) 75 mg PO DAILY [facility] Last Admin: 04/20/18 10:16 Dose: 75 mg Enalapril Maleate (Vasotec) 2.5 mg PO DAILY [facility] Last Admin: 04/20/18 10:14 Dose: 2.5 mg Enoxaparin Sodium (Lovenox) 40 mg SC DAILY [facility] Last Admin: 04/20/18 10:13 Dose: 40 mg Famotidine (Pepcid) 20 mg PO DAILY [facility] Last Admin: 04/20/18 10:13 Dose: 20 mg Furosemide (Lasix) 20 mg PO DAILY [facility] Last Admin: 04/20/18 10:16 Dose: 20 mg Methylprednisolone (Solu-Medrol) 60 mg IVP Q6H [facility] Last Admin: 04/20/18 13:50 Dose: 60 mg Pantoprazole Sodium (Protonix Ec Tab) 40 mg PO DAILY [facility] Last Admin: 04/20/18 10:16 Dose: 40 mg - Labs Labs: 04/19/18 05:34 04/19/18 05:34
--- NOTE | 2018-04-20 17:24 | CARD ---
APPROVED REPORT EKG Measurement Heart [id number] <Conclusion> Atrial-paced rhythm Possible Inferior infarct, age undetermined T wave abnormality, consider lateral ischemia Abnormal ECG
[2018-04-21] MEDS: MethylPREDNISolone 40 mg Vial IVP SCH ×4 (00:44→19:49)
[2018-04-21 06:45] LABS: BASO % 0.2 % (0.0-2.0); HEMOGLOBIN 11.3 g/dL (12.0-18.0); LYMPH # 0.6 K/uL (1.0-4.3); LYMPH % 6.5 % (20.0-40.0); MEAN CELL VOLUME 88.8 fL (80.0-94.0); MEAN CORPUSCULAR HEMOGLOBIN 30.3 pg (27.0-31.0); MEAN CORPUSCULAR HGB CONC 34.2 g/dL (33.0-37.0); MEAN PLATELET VOLUME 7.2 fL (7.2-11.7); MONO # 0.4 K/uL (0.0-0.8); NEUT # 8.4 K/uL (1.8-7.0); NEUT % 89.3 % (50.0-75.0); PLATELET COUNT 262 K/uL (130-400); RBC 3.71 Mil/uL (4.40-5.90); RED CELL DISTRIBUTION WIDTH 15.2 % (11.5-14.5); WHITE BLOOD COUNT 9.5 K/uL (4.8-10.8)
[2018-04-21 07:12] LABS: ALB/GLOB RATIO 1.2 (1.0-2.1); ALBUMIN 3.5 g/dL (3.5-5.0); ALT/SGPT 27 U/L (21-72); AST/SGOT 31 U/L (17-59); BLOOD UREA NITROGEN 30 mg/dL (9-20); CALCIUM 8.6 mg/dl (8.6-10.4); GFR AFRICAN-AMERICAN > 60; GFR NON-AFRICAN AMERICAN > 60
[2018-04-21 09:05] LABS: LYMPHOCYTE 5 % (20-40); MONOCYTE 2 % (0-10); NEUTROPHIL 93 % (50-75); PLATELET ESTIMATE NORMAL (NORMAL); TOTAL CELLS COUNTED 100
[2018-04-21 09:06] LABS: ANISOCYTOSIS SLIGHT; LARGE PLATELETS PRESENT
[2018-04-21 09:07] LABS: HYPOCHROMIC SLIGHT; POLYCHROMIC SLIGHT
[2018-04-21 09:08] LABS: GIANT PLATELETS PRESENT
[2018-04-21] MEDS: Enoxaparin 40 mg Syringe SC SCH (09:42)
[2018-04-21] MEDS: Pantoprazole 40 mg EC Tab PO SCH (09:42)
--- NOTE | 2018-04-21 14:40 | CP.PCM.PN ---
Subjective - Date & Time of Evaluation Date of Evaluation: 04/21/18 Time of Evaluation: 14:39 - Subjective Subjective: CHIEF COMPLAINTS TODAY : patient has dizziness this morning. Blood pressure was low side of 101 systolic. There is no any cardiac arrhythmia. Occasional wheezing ROS. HEENT : N. Resp : No hemoptysis Cardio : No anginal CP, PND, orthopnea, palpitation GI : No abd.pain, n/v ,diarrhea or GI bleeding . SHUTTLE SPOTTER : No headache, vertigo, focal deficit. Musculoskel : No joint swelling , Derm : No rash Psych : Normal affect. Ext : No swelling ,calf pain PE. Pt. is alert awake in no distress. V.S As noted in the chart Head ,ear nose,throat and eyes : Normal. Neck : Supple with normal carotids. Lungs: bilateral basal rhonchi, no rales Heart : S1 & S2 normal with S4. No murmur. Abd : Soft non tender with normal bowel sounds. Neuro : Moves all ext. with no localized deficit. Ext : No edema with intact pulses.Non tender calves Derm : No rashes or decubitus ulcer. LABS/RADIOLOGY: ASSESSMENT/PLAN : CHF is improving continue IV steroids and nebulizer. Blood pressure medication and amiodarone on hold due to low blood pressure Objective - Vital Signs/Intake and Output Vital Signs (last 24 hours): Temp Pulse Resp BP Pulse Ox 97.5 F L 62 20 106/66 99 04/21/18 07:00 04/21/18 09:40 04/21/18 07:00 04/21/18 10:57 04/21/18 07:00 - Medications Medications: Current Medications Al Hydrox/Mg Hydrox/Simethicone (Maalox 30 Ml) 30 ml PO Q4 PRN PRN Reason: Indigestion / Heartburn Albuterol/Ipratropium (Duoneb 3 Mg/0.5 Mg (3 Ml) Ud) 3 ml INH RQ4 PRN PRN Reason: Shortness of Breath Last Admin: 04/21/18 12:02 Dose: 3 ml Amiodarone HCl (Cordarone) 200 mg PO TID [facility] Last Admin: 04/21/18 10:57 Dose: Not Given Aspirin (Ecotrin) 81 mg PO DAILY [facility] Last Admin: 04/21/18 09:41 Dose: 81 mg Carvedilol (Coreg) 3.125 mg PO Q12 [facility] Last Admin: 04/21/18 10:57 Dose: Not Given Clopidogrel Bisulfate (Plavix) 75 mg PO DAILY [facility] Last Admin: 04/21/18 09:41 Dose: 75 mg Enalapril Maleate (Vasotec) 2.5 mg PO DAILY [facility] Last Admin: 04/21/18 10:57 Dose: Not Given Enoxaparin Sodium (Lovenox) 40 mg SC DAILY [facility] Last Admin: 04/21/18 09:42 Dose: 40 mg Famotidine (Pepcid) 20 mg PO DAILY [facility] Last Admin: 04/21/18 09:41 Dose: 20 mg Furosemide (Lasix) 20 mg PO DAILY [facility] Last Admin: 04/21/18 10:57 Dose: Not Given Methylprednisolone (Solu-Medrol) 60 mg IVP Q6H [facility] Last Admin: 04/21/18 12:35 Dose: 60 mg Pantoprazole Sodium (Protonix Ec Tab) 40 mg PO DAILY [facility] Last Admin: 04/21/18 09:42 Dose: 40 mg - Labs Labs: 04/21/18 06:36 04/21/18 06:36
[2018-04-22] MEDS: MethylPREDNISolone 40 mg Vial IVP SCH ×3 (00:34→21:19)
[2018-04-22] MEDS: Enoxaparin 40 mg Syringe SC SCH (10:32)
[2018-04-22] MEDS: Pantoprazole 40 mg EC Tab PO SCH (10:32)
--- NOTE | 2018-04-22 15:35 | CP.PCM.PN ---
Subjective - Date & Time of Evaluation Date of Evaluation: 04/22/18 Time of Evaluation: 15:34 - Subjective Subjective: Discussed with the nursing staff. Patient currently is stable with no chest pain dizziness or shortness of breath. Blood pressure noted since yesterday is normal. We will taper of steroids and plan for discharge Objective - Vital Signs/Intake and Output Vital Signs (last 24 hours): Temp Pulse Resp BP Pulse Ox 97.4 F L 74 20 126/78 98 04/22/18 07:00 04/22/18 14:36 04/22/18 07:00 04/22/18 14:36 04/22/18 07:00 - Medications Medications: Current Medications Al Hydrox/Mg Hydrox/Simethicone (Maalox 30 Ml) 30 ml PO Q4 PRN PRN Reason: Indigestion / Heartburn Albuterol/Ipratropium (Duoneb 3 Mg/0.5 Mg (3 Ml) Ud) 3 ml INH RQ4 PRN PRN Reason: Shortness of Breath Last Admin: 04/21/18 12:02 Dose: 3 ml Amiodarone HCl (Cordarone) 200 mg PO TID [facility] Last Admin: 04/22/18 14:36 Dose: 200 mg Aspirin (Ecotrin) 81 mg PO DAILY [facility] Last Admin: 04/22/18 10:32 Dose: 81 mg Carvedilol (Coreg) 3.125 mg PO Q12 [facility] Last Admin: 04/22/18 10:31 Dose: 3.125 mg Clopidogrel Bisulfate (Plavix) 75 mg PO DAILY [facility] Last Admin: 04/22/18 10:32 Dose: 75 mg Enalapril Maleate (Vasotec) 2.5 mg PO DAILY [facility] Last Admin: 04/22/18 10:31 Dose: 2.5 mg Enoxaparin Sodium (Lovenox) 40 mg SC DAILY [facility] Last Admin: 04/22/18 10:32 Dose: 40 mg Famotidine (Pepcid) 20 mg PO DAILY [facility] Last Admin: 04/22/18 10:32 Dose: 20 mg Furosemide (Lasix) 20 mg PO DAILY [facility] Last Admin: 04/22/18 10:31 Dose: 20 mg Methylprednisolone (Solu-Medrol) 40 mg IVP Q12 [facility] Pantoprazole Sodium (Protonix Ec Tab) 40 mg PO DAILY [facility] Last Admin: 04/22/18 10:32 Dose: 40 mg - Labs Labs: 04/21/18 06:36 04/21/18 06:36
[2018-04-23] MEDS: Aluminum Hydroxide/Magnesium Hydroxide Susp (30 mL) PO PRN (03:32)
[2018-04-23] MEDS: MethylPREDNISolone 40 mg Vial IVP SCH ×2 (10:30→21:44)
[2018-04-23] MEDS: Enoxaparin 40 mg Syringe SC SCH (10:31)
[2018-04-23] MEDS: Pantoprazole 40 mg EC Tab PO SCH (10:34)
[2018-04-23] MEDS ORDERED: guaiFENesin 100 mg/5 ml Syrup UD PO PRN (13:38)
--- NOTE | 2018-04-23 13:56 | CP.PCM.PN ---
Subjective - Date & Time of Evaluation Date of Evaluation: 04/23/18 Time of Evaluation: 13:55 - Subjective Subjective: CHIEF COMPLAINTS TODAY : Complains of occasional dizziness on ambulation. ROS. HEENT : N. Resp : No hemoptysis Cardio : No anginal CP, PND, orthopnea, palpitation GI : No abd.pain, n/v ,diarrhea or GI bleeding . COLLABORATIVE PHYSICIAN : No headache, vertigo, focal deficit. Musculoskel : No joint swelling , Derm : No rash Psych : Normal affect. Ext : No swelling ,calf pain PE. Pt. is alert awake in no distress. V.S As noted in the chart Head ,ear nose,throat and eyes : Normal. Neck : Supple with normal carotids. Lungs: bilateral basal rhonchi, no rales Heart : S1 & S2 normal with S4. No murmur. Abd : Soft non tender with normal bowel sounds. Neuro : Moves all ext. with no localized deficit. Ext : No edema with intact pulses.Non tender calves Derm : No rashes or decubitus ulcer. LABS/RADIOLOGY: ASSESSMENT/PLAN : CHF is improving We will discuss with patient for cardiac catheterization. Objective - Vital Signs/Intake and Output Vital Signs (last 24 hours): Temp Pulse Resp BP Pulse Ox 97.3 F L 72 18 147/74 99 04/23/18 07:00 04/23/18 12:00 04/23/18 07:00 04/23/18 10:34 04/23/18 07:00 - Medications Medications: Current Medications Al Hydrox/Mg Hydrox/Simethicone (Maalox 30 Ml) 30 ml PO Q4 PRN PRN Reason: Indigestion / Heartburn Last Admin: 04/23/18 03:32 Dose: 30 ml Albuterol/Ipratropium (Duoneb 3 Mg/0.5 Mg (3 Ml) Ud) 3 ml INH RQ4 PRN PRN Reason: Shortness of Breath Last Admin: 04/21/18 12:02 Dose: 3 ml Amiodarone HCl (Cordarone) 200 mg PO TID [facility] Last Admin: 04/23/18 10:34 Dose: 200 mg Aspirin (Ecotrin) 81 mg PO DAILY [facility] Last Admin: 04/23/18 10:30 Dose: 81 mg Carvedilol (Coreg) 3.125 mg PO Q12 [facility] Last Admin: 04/23/18 10:34 Dose: 3.125 mg Clopidogrel Bisulfate (Plavix) 75 mg PO DAILY [facility] Last Admin: 04/23/18 10:34 Dose: 75 mg Enalapril Maleate (Vasotec) 2.5 mg PO DAILY [facility] Last Admin: 04/23/18 10:32 Dose: 2.5 mg Enoxaparin Sodium (Lovenox) 40 mg SC DAILY [facility] Last Admin: 04/23/18 10:31 Dose: 40 mg Famotidine (Pepcid) 20 mg PO DAILY [facility] Last Admin: 04/23/18 10:30 Dose: 20 mg Furosemide (Lasix) 20 mg PO DAILY [facility] Last Admin: 04/23/18 10:34 Dose: 20 mg Guaifenesin (Robitussin) 100 mg PO Q4H PRN PRN Reason: Cough Methylprednisolone (Solu-Medrol) 40 mg IVP Q12 [facility] Last Admin: 04/23/18 10:30 Dose: 40 mg Pantoprazole Sodium (Protonix Ec Tab) 40 mg PO DAILY [facility] Last Admin: 04/23/18 10:34 Dose: 40 mg - Labs Labs: 04/21/18 06:36 04/21/18 06:36
[2018-04-23 16:57] VITALS: RESP 20
[2018-04-24] MEDS: Aluminum Hydroxide/Magnesium Hydroxide Susp (30 mL) PO PRN ×2 (02:37→14:05)
[2018-04-24 09:01] VITALS: O2SAT 97
[2018-04-24] MEDS: Enoxaparin 40 mg Syringe SC SCH (11:00)
[2018-04-24] MEDS: Pantoprazole 40 mg EC Tab PO SCH (11:00)
[2018-04-24] MEDS: MethylPREDNISolone 40 mg Vial IVP SCH (11:00)
--- NOTE | 2018-04-24 13:25 | CP.PCM.PN ---
Subjective - Date & Time of Evaluation Date of Evaluation: 04/24/18 Time of Evaluation: 11:00 - Subjective Subjective: Patient seen today , denies any chest pain, sob, palpitations , dizziness , abdominal pain, N/V. No overnight events recorded on monitor OOB ambulating the [address] without sob Objective - Vital Signs/Intake and Output Vital Signs (last 24 hours): Temp Pulse Resp BP Pulse Ox 97.2 F L 65 20 148/77 97 04/24/18 07:40 04/24/18 10:59 04/24/18 07:40 04/24/18 11:00 04/24/18 07:40 Intake and Output: 04/24/18 04/24/18 06:59 18:59 Intake Total 480 Balance 480 - Medications Medications: Current Medications Al Hydrox/Mg Hydrox/Simethicone (Maalox 30 Ml) 30 ml PO Q4 PRN PRN Reason: Indigestion / Heartburn Last Admin: 04/24/18 02:37 Dose: 30 ml Amiodarone HCl (Cordarone) 200 mg PO TID [facility] Last Admin: 04/24/18 11:00 Dose: 200 mg Aspirin (Ecotrin) 81 mg PO DAILY [facility] Last Admin: 04/24/18 11:00 Dose: 81 mg Carvedilol (Coreg) 3.125 mg PO Q12 [facility] Last Admin: 04/24/18 11:00 Dose: 3.125 mg Clopidogrel Bisulfate (Plavix) 75 mg PO DAILY [facility] Last Admin: 04/24/18 11:00 Dose: 75 mg Enalapril Maleate (Vasotec) 2.5 mg PO DAILY [facility] Last Admin: 04/24/18 11:00 Dose: 2.5 mg Enoxaparin Sodium (Lovenox) 40 mg SC DAILY [facility] Last Admin: 04/24/18 11:00 Dose: 40 mg Famotidine (Pepcid) 20 mg PO DAILY [facility] Last Admin: 04/24/18 11:00 Dose: 20 mg Furosemide (Lasix) 20 mg PO DAILY [facility] Last Admin: 04/24/18 11:00 Dose: 20 mg Guaifenesin (Robitussin) 100 mg PO Q4H PRN PRN Reason: Cough Last Admin: 04/23/18 14:32 Dose: 100 mg Methylprednisolone (Solu-Medrol) 40 mg IVP Q12 [facility] Last Admin: 04/24/18 11:00 Dose: 40 mg Pantoprazole Sodium (Protonix Ec Tab) 40 mg PO DAILY [facility] Last Admin: 04/24/18 11:00 Dose: 40 mg - Labs Labs: 04/21/18 06:36 04/21/18 06:36 Assessment and Plan - Assessment and Plan (Free Text) Assessment: A/P 67 yr old male with PMHx significant for CHF, CAD, s/p CABG, and s/p DDD pacemaker re -admitted incr. SOB, cough/ exc. COPD, and CHF Patient clinically improved with steroids and lasix Patient oob ambulating to the hallway without sob D/W Dr. García cleared for discharge home today and f/u with Dr. Duque office in 3-5 day s All prescription filled and given to patient before discharge
--- NOTE | 2018-04-24 14:01 | IP.NPCORE ---
Heart Failure Core Measure - Heart Failure Ejection Fraction: 40 % or Greater YRIS Inhibitor Prescribed: Yes Beta-Phong Prescribed: Carvedilol Angiotensin II Receptor Phong Prescribed: No Contraindication/Reason for not providing: on yris AnticoagulationTherapy for Atrial Fibrillation/Atrialflutter: No Contraindication/Reason for not providing: no hx of a fib Aldosterone Antagonist Prescribed: No Contraindication/Reason for not providing: ef>45 Hydralazine Nitrate Prescribed: No Contraindication/Reason for not providing: ef>45 Implantable Cardioverter Defibrillator Therapy: No Contraindication/Reason for not providing: pt has pacemaker Cardiac Resynchronization Therapy Prescribed: No Contraindication/Reason for not providing: pt has pace make r - Follow up Follow Up Date (must be within 7 days from discharge): 04/30/18 Follow Up Time: 09:00
[2018-04-24 14:04] VITALS: PULSE 63; TEMP 97.9
--- NOTE | 2018-04-24 14:06 | CP.PCM.DIS ---
Provider - Provider Date of Admission: 04/19/18 06:52 Attending physician: Merlyn Duque MD Time Spent in preparation of Discharge (in minutes): 35 Hospital Course - Lab Results Lab Results: Most Recent Lab Values WBC 9.5 K/uL (4.8-10.8) 04/21/18 06:36 RBC 3.71 Mil/uL (4.40-5.90) L 04/21/18 06:36 Hgb 11.3 g/dL (12.0-18.0) L 04/21/18 06:36 Hct 33.0 % (35.0-51.0) L 04/21/18 06:36 MCV 88.8 fL (80.0-94.0) 04/21/18 06:36 MCH 30.3 pg (27.0-31.0) 04/21/18 06:36 MCHC 34.2 g/dL (33.0-37.0) 04/21/18 06:36 RDW 15.2 % (11.5-14.5) H 04/21/18 06:36 Plt Count 262 K/uL (130-400) 04/21/18 06:36 MPV 7.2 fL (7.2-11.7) 04/21/18 06:36 Neut % (Auto) 89.3 % (50.0-75.0) H 04/21/18 06:36 Lymph % (Auto) 6.5 % (20.0-40.0) L 04/21/18 06:36 Robertson % (Auto) 4.0 % (0.0-10.0) 04/21/18 06:36 Eos % (Auto) 0.0 % (0.0-4.0) 04/21/18 06:36 Baso % (Auto) 0.2 % (0.0-2.0) 04/21/18 06:36 Neut # (Auto) 8.4 K/uL (1.8-7.0) H 04/21/18 06:36 Lymph # (Auto) 0.6 K/uL (1.0-4.3) L 04/21/18 06:36 Robertson # (Auto) 0.4 K/uL (0.0-0.8) 04/21/18 06:36 Eos # (Auto) 0.0 K/uL (0.0-0.7) 04/21/18 06:36 Baso # (Auto) 0.0 K/uL (0.0-0.2) 04/21/18 06:36 Neutrophils % (Manual) 93 % (50-75) H 04/21/18 06:36 Lymphocytes % (Manual) 5 % (20-40) L 04/21/18 06:36 Monocytes % (Manual) 2 % (0-10) 04/21/18 06:36 Platelet Estimate Normal (NORMAL) 04/21/18 06:36 Large Platelets Present 04/21/18 06:36 Giant Platelets Present 04/21/18 06:36 Polychromasia Slight 04/21/18 06:36 Hypochromasia (manual) Slight 04/21/18 06:36 Anisocytosis (manual) Slight 04/21/18 06:36 Puncture Site Rb 04/19/18 05:45 pCO2 36 mm/Hg (35-45) 04/19/18 05:45 pO2 72 mm/Hg (80-100) L 04/19/18 05:45 HCO3 25.3 mmol/L (21-28) 04/19/18 05:45 ABG pH 7.44 (7.35-7.45) 04/19/18 05:45 ABG Total CO2 25.6 mmol/L (22-28) 04/19/18 05:45 ABG O2 Saturation 96.9 % (95-98) 04/19/18 05:45 ABG Base Excess 0.6 mmol/L (-2.0-3.0) 04/19/18 05:45 ABG Hemoglobin 13.6 g/dL (11.7-17.4) 04/19/18 05:45 ABG Carboxyhemoglobin 1.6 % (0.5-1.5) H 04/19/18 05:45 POC ABG HHb (Measured) 3.0 % (0.0-5.0) 04/19/18 05:45 ABG Methemoglobin 0.9 % (0.0-3.0) 04/19/18 05:45 Ant Test Na 04/19/18 05:45 A-a O2 Difference 111.0 mm/Hg 04/19/18 05:45 Respiratory Index 1.5 04/19/18 05:45 Hgb O2 Saturation 94.5 % (95.0-98.0) L 04/19/18 05:45 Liter Flow 3.0 04/19/18 05:45 FiO2 32.0 % 04/19/18 05:45 Sodium 139 mmol/L (132-148) 04/21/18 06:36 Potassium 4.3 mmol/L (3.6-5.2) 04/21/18 06:36 Chloride 105 mmol/L (98-107) 04/21/18 06:36 Carbon Dioxide 24 mmol/L (22-30) 04/21/18 06:36 Anion Gap 14 (10-20) 04/21/18 06:36 BUN 30 mg/dL (9-20) H 04/21/18 06:36 Creatinine 0.9 mg/dL (0.8-1.5) 04/21/18 06:36 Est GFR ( Amer) > 60 04/21/18 06:36 Est GFR (Non-Af Amer) > 60 04/21/18 06:36 Random Glucose 143 mg/dL (75-110) H 04/21/18 06:36 Calcium 8.6 mg/dl (8.6-10.4) 04/21/18 06:36 Total Bilirubin 0.3 mg/dL (0.2-1.3) 04/21/18 06:36 AST 31 U/L (17-59) 04/21/18 06:36 ALT 27 U/L (21-72) 04/21/18 06:36 Alkaline Phosphatase 74 U/L (38-126) 04/21/18 06:36 Total Creatine Kinase 42 U/L (55-170) L 04/19/18 21:18 CK-MB (Mass) 1.35 ng/mL (0.0-3.38) 04/19/18 21:18 Troponin I < 0.0120 ng/mL (0.00-0.120) 04/19/18 21:18 NT-Pro-B Natriuret Pep 1790 pg/mL (0-900) H 04/19/18 05:34 Total Protein 6.5 g/dL (6.3-8.3) 04/21/18 06:36 Albumin 3.5 g/dL (3.5-5.0) 04/21/18 06:36 Globulin 3.0 gm/dL (2.2-3.9) 04/21/18 06:36 Albumin/Globulin Ratio 1.2 (1.0-2.1) 04/21/18 06:36 Influenza Typ A,B (EIA) Negative for flu a/b (NEGATIVE) 04/19/18 05:28 - Hospital Course Hospital Course: Patient is readmitted after 48 hours with increasing shortness of breath and wheezing and coughing. Patient was admitted recently in [facility] discharge about 48 hours ago for CHF. Patient was treated with Lasix and improved and was discharged in a stable condition. Apparently patient does not have funds to buy his medications and patient was without medication and again in the similar situation in the previous admission patient got more short of breath with deterioration in his medical condition. Patient has a history of cardiomyopathy with left ventricle ejection fraction of 40-45% with normal stress test done recently in [facility] patient has COPD hypertension diabetes . Patient was treated with IV Solu-Medrol and [id number] nebulizer. Patient improved on a bowel therapy and Solu-Medrol was tapered off. During the hospitalization patient had occasional palpitation. During this hospitalization there was no any acute congestive heart failure.. Patient was continue his present medication. Cardiac enzymes were negative 3. Patient currently stable walking in the hallway no chest pain shortness of breath or palpitation. Patient is now going to be discharged to continue on his present medication will be evaluated again in the office in 3-5 days patient was given an appointment to see me in the office. Discharge Plan - Discharge Medications Prescriptions: Amiodarone [Cordarone] 200 mg PO TID #90 tab Carvedilol [Coreg] 3.125 mg PO Q12 #30 tab Aspirin [Ecotrin] 81 mg PO DAILY #30 tabec Furosemide [Lasix] 20 mg PO DAILY #30 tablet Famotidine [Pepcid] 20 mg PO DAILY #30 tab Clopidogrel [Plavix] 75 mg PO DAILY #30 tab predniSONE [Prednisone] 20 mg PO DAILY #9 tab Enalapril Maleate [Vasotec] 2.5 mg PO DAILY #30 tab - Follow Up Plan Condition: FAIR Disposition: HOME/ ROUTINE Instructions: Heart Healthy Diet, Heart Failure, Adult (DC), Exacerbation of COPD (DC), Amiodarone, Aspirin, Carvedilol, Clopidogrel, Enalapril, Famotidine, Prednisone Additional Instructions: -Please f/[place] [phone]- call and confirm appointment Continue medication as per [facility] service for medication management -PLEASE MAKE SURE YOU ARE TAKING ALL OF YOUR MEDICATIONS!!! DO NOT SKIP ANY DOSES THIS MAY AFFECT YOUR BREATHING. -IF YOU HAVE ANY FURTHER QUESTIONS OR CONCERNS, CONTACT DR. FUNES'S OFFICE. Referrals: Merlyn Duque MD [Staff Provider] -
[2018-04-24 14:11] VITALS: BP 116/67
== END 2018-04-24 14:37 | disposition home or self-care (01) | DRG 190 ==
LOC: C.ER 05:03 → C.6T 06:52
PROVIDERS: ADMIT Internal Medicine Cardiovascular Disease; ATTEND Internal Medicine Cardiovascular Disease
DX: J44.1 Chronic obstructive pulmonary disease with (acute) exacerbation (principal); I50.23 Acute on chronic systolic (congestive) heart failure; I11.0 Hypertensive heart disease with heart failure; E11.9 Type 2 diabetes mellitus without complications; E78.00 Pure hypercholesterolemia, unspecified; I25.10 Atherosclerotic heart disease of native coronary artery without angina pectoris; I25.5 Ischemic cardiomyopathy; Z95.1 Presence of aortocoronary bypass graft; Z95.0 Presence of cardiac pacemaker

== ENCOUNTER 2018-04-25 11:55 | Inpatient (IN) | payer MEDICARE ==
[2018-04-25 11:55] VITALS: BMI 23.0
[2018-04-25] MEDS ORDERED: Albuterol-Ipratrop 3 mg / 0.5 (3 ml) UD INH STA (12:38)
[2018-04-25] MEDS ORDERED: Albuterol 0.083% Inhal Sol (2.5 mg/3 mL) UD IH STA (12:39)
[2018-04-25] MEDS ORDERED: Albuterol-Ipratrop 3 mg / 0.5 (3 ml) UD ONE (12:51)
[2018-04-25] MEDS ORDERED: Albuterol 0.083% Inhal Sol (2.5 mg/3 mL) UD ONE (12:51)
[2018-04-25 13:06] LABS: BASO # 0.1 K/uL (0.0-0.2); BASO % 0.4 % (0.0-2.0); EOS % 0.3 % (0.0-4.0); HEMOGLOBIN 10.1 g/dL (12.0-18.0); LYMPH # 1.2 K/uL (1.0-4.3); LYMPH % 9.6 % (20.0-40.0); MEAN CELL VOLUME 88.5 fL (80.0-94.0); MEAN CORPUSCULAR HEMOGLOBIN 29.8 pg (27.0-31.0); MEAN CORPUSCULAR HGB CONC 33.7 g/dL (33.0-37.0); MONO # 0.7 K/uL (0.0-0.8); MONO % 5.6 % (0.0-10.0); NEUT # 10.9 K/uL (1.8-7.0); NEUT % 84.1 % (50.0-75.0); PLATELET COUNT 243 K/uL (130-400); RED CELL DISTRIBUTION WIDTH 15.4 % (11.5-14.5)
--- NOTE | 2018-04-25 13:12 | RAD ---
PROCEDURE: CHEST RADIOGRAPH, 1 VIEW HISTORY: SOB COMPARISON: Chest radiograph dated 04/19/2018. FINDINGS: LUNGS: Left basilar atelectasis. PLEURA: Possible small left pleural effusion. No appreciable pneumothorax. CARDIOVASCULAR: Left subclavian access pacemaker redemonstrated. Prior sternotomy with sternal wires and surgical clips redemonstrated. Atherosclerotic aortic calcifications. Cardiomediastinal silhouette stably enlarged. OSSEOUS STRUCTURES: Unchanged. VISUALIZED UPPER ABDOMEN: Normal. OTHER FINDINGS: None. IMPRESSION: Left basilar atelectasis with possible small left pleural effusion.
[2018-04-25 13:17] LABS: INR 0.9
[2018-04-25 13:28] LABS: ALB/GLOB RATIO 1.2 (1.0-2.1); ALBUMIN 3.2 g/dL (3.5-5.0); ALT/SGPT 32 U/L (21-72); AST/SGOT 26 U/L (17-59); BLOOD UREA NITROGEN 38 mg/dL (9-20); CALCIUM 8.1 mg/dl (8.6-10.4); GFR AFRICAN-AMERICAN > 60; GFR NON-AFRICAN AMERICAN > 60
[2018-04-25 13:31] LABS: B-TYPE NATRIURETIC PEPTIDE 2190 pg/mL (0-900); CK-MB 2.01 ng/mL (0.0-3.38); LYMPHOCYTE 8 % (20-40); MONOCYTE 6 % (0-10); NEUTROPHIL 86 % (50-75); PLATELET ESTIMATE NORMAL (NORMAL); TOTAL CELLS COUNTED 100
[2018-04-25 13:32] LABS: ANISOCYTOSIS SLIGHT; HYPOCHROMIC SLIGHT; POLYCHROMIC SLIGHT
--- NOTE | 2018-04-25 14:04 | C.PDOC ---
History Of Present Illness 67 y/o male presents to the ER complaining of SOB. Patient was recently admitted at [facility] for COPD/CHF exacerbation, and just discharged yesterday. Patient reports that he went home after his discharge and he was not able to sleep because of his SOB. Patient states he needs home oxygen. He is complaining of mild pleuritic chest pain, but denies cough, fever, palpitations , abdominal pain, nausea, vomiting. Time Seen by Provider: 04/25/18 12:02 Chief Complaint (Nursing): Shortness Of Breath History Per: Patient History/Exam Limitations: no limitations Onset/Duration Of Symptoms: Days Current Symptoms Are (Timing): Still Present Exacerbating Factor(s): Laying Flat Current Respiratory Medications: See Home Med List Severity: Moderate Past Medical History Reviewed: Historical Data, Nursing Documentation, Vital Signs Vital Signs: Last Vital Signs Temp 97.5 F L 04/26/18 16:00 Pulse 60 04/26/18 15:44 Resp 14 04/26/18 15:17 BP 105/80 04/26/18 15:17 Pulse Ox 96 04/26/18 18:04 - Medical History PMH: Anemia, Asthma, Atrial Fibrillation, Bronchitis, CAD, Cardia Arrhythmia, CHF, COPD, Emphysema, HTN, Hypercholesterolemia, Malignancy (right lung mass), Seizures Surgical History: CABG (x3), Coronary Stent (x3), Pacemaker - [facility] Procedures FLUOROSCOPY OF LEFT HEART USING OTHER CONTRAST (01/22/17) INSERT PACE. DUAL JOHN IN CHEST SUBCU/FASCIA, OPEN (02/17/17) INSERTION OF PACEMAKER LEAD INTO R VENTRICLE, PERC APPROACH (02/17/17) INSERTION OF PACEMAKER LEAD INTO RIGHT ATRIUM, PERC APPROACH (02/17/17) INTRODUCTION OF SERUM/TOX/VACCINE INTO MUSCLE, PERC APPROACH (01/22/17) MEASURE OF CARDIAC SAMPL & PRESSURE, L HEART, PERC APPROACH (01/22/17) Family History: States: No Known Family Hx - Social History Hx Alcohol Use: Yes Hx Substance Use: No - Immunization History Hx Tetanus Toxoid Vaccination: No Hx Influenza Vaccination: No Hx Pneumococcal Vaccination: No Review Of Systems Constitutional: Negative for: Fever, Chills Cardiovascular: Positive for: Chest Pain. Negative for: Palpitations Respiratory: Positive for: Shortness of Breath. Negative for: Cough Gastrointestinal: Negative for: Nausea, Vomiting, Abdominal Pain Skin: Negative for: Rash Neurological: Negative for: Weakness Physical Exam - Physical Exam Appears: Well, Non-toxic, In Acute Distress (in mild respiratory distress ), Other (coughing intermittently, speaking in full sentences) Skin: Normal Color, Warm, Dry, No Rash Head: Normacephalic Eye(s): bilateral: Normal Inspection Oral Mucosa: Moist Lips: Normal Appearing, No Swelling Neck: Supple Cardiovascular: Rhythm Regular Respiratory: Accessory Muscle Use (mild), No Rales, No Rhonchi, Wheezing ( scattered expiratory wheezing B/L ), Other (coarse breath sounds B/L ) Gastrointestinal/Abdominal: Normal Exam, Bowel Sounds, Soft, No Tenderness Extremity: Normal ROM, Pedal Edema (+1 pitting edema B/L LEs), No Calf Tenderness Pulses: Left Dorsalis Pedis: Normal, Right Dorsalis Pedis: Normal Neurological/Psych: Oriented x3 ED Course And Treatment - Laboratory Results Result Diagrams: 04/26/18 04:36 04/25/18 13:02 ECG: Interpreted By Me, Viewed By Me ECG Rhythm: Sinus Rhythm ECG Interpretation: Abnormal Interpretation Of ECG: NSR with normal axis, Q waves in II, III, AVF, and T wave inversions in II,III, AVF, V5, and V6, no acute ST changes Rate From EC (bpm) O2 Sat by Pulse Oximetry: 96 (RA) Pulse Ox Interpretation: Normal - Other Rad CXR X-Ray: Viewed By Me, Read By Radiologist Interpretation: PROCEDURE: CHEST RADIOGRAPH, 1 VIEW. HISTORY: SOB. COMPARISON: Chest radiograph dated 04/19/2018. FINDINGS: LUNGS: Left basilar atelectasis. PLEURA: Possible small left pleural effusion. No appreciable pneumothorax. CARDIOVASCULAR: Left subclavian access pacemaker redemonstrated. Prior sternotomy with sternal wires and surgical clips redemonstrated. Atherosclerotic aortic calcifications. Cardiomediastinal silhouette stably enlarged. OSSEOUS STRUCTURES: Unchanged. VISUALIZED UPPER ABDOMEN: Normal. OTHER FINDINGS: None. IMPRESSION: Left basilar atelectasis with possible small left pleural effusion. Progress Note: Blood work, EKG, and CXR ordered and reviewed. Patient given IV solumedrol, nebulizer treatments, and IV Lasix. Patient requests admission to different physician than last time - will admit to medicine sales contractor. Reevaluation Time: 14:10 Reassessment Condition: Improved (Patient reassessed, states he feels only minimally improved. On exam, (+) scattered exp wheezing B/L and coarse breath sounds . Pox 90-92% on 2L.) - Physician Consult Information Physician Contacted: Caitlin Mendoza Outcome Of Conversation: Discussed patient with medicine sales contractor, agrees with admission for copd/chf exacerbation, dyspnea, pleural effusion. Disposition - Disposition Disposition: HOSPITALIZED Disposition Time: 14:19 Condition: STABLE - Clinical Impression Clinical Impression: COPD exacerbation, CHF exacerbation, Dyspnea, Pleural effusion - Scribe Statement The provider has reviewed the documentation as recorded by the Scribe Carter Pandya Provider Attestation: All medical record entries made by the Scribe were at my direction and personally dictated by me. I have reviewed the chart and agree that the record accurately reflects my personal performance of the history, physical exam, medical decision making, and the department course for this patient. I have also personally directed, reviewed, and agree with the discharge instructions and disposition. Decision To Admit - Pt Status Changed To: Hospital Disposition Of: Observation - . Bed Request Type: Telemetry Admitting Physician: Caitlin Mendoza Patient Diagnosis: COPD exacerbation, CHF exacerbation, Dyspnea, Pleural effusion
--- NOTE | 2018-04-25 17:10 | CP.PCM.HP ---
Past Patient History - Infectious Disease Hx of Infectious Diseases: None - Past Medical History & Family History Past Medical History?: Yes - Past Social History Smoking Status: Former Smoker - CARDIAC Hx Atrial Fibrillation: Yes Hx Cardia Arrhythmia: Yes Hx Congestive Heart Failure: Yes Hx Hypercholesterolemia: Yes Hx Hypertension: Yes Hx Pacemaker: Yes - PULMONARY Hx Asthma: Yes Hx Bronchitis: Yes Hx Chronic Obstructive Pulmonary Disease (COPD): Yes Hx Emphysema: Yes - NEUROLOGICAL Hx Seizures: Yes - HEENT Hx HEENT Problems: No - RENAL Hx Chronic Kidney Disease: No - ENDOCRINE/METABOLIC Hx Endocrine Disorders: No - HEMATOLOGICAL/ONCOLOGICAL Hx Anemia: Yes Hx Human Immunodeficiency Virus (HIV): No - INTEGUMENTARY Hx Dermatological Problems: No - MUSCULOSKELETAL/RHEUMATOLOGICAL Hx Falls: No - GASTROINTESTINAL Hx Gastrointestinal Disorders: No - GENITOURINARY/GYNECOLOGICAL Hx Sexually Transmitted Disorders: No - PSYCHIATRIC Hx Substance Use: No - SURGICAL HISTORY Hx Coronary Artery Bypass Graft: Yes (x3) Hx Coronary Stent: Yes (x3) - ANESTHESIA Hx Anesthesia: Yes Hx Anesthesia Reactions: No Hx Malignant Hyperthermia: No Meds Allergies/Adverse Reactions: Allergies Allergy/AdvReac Type Severity Reaction Status Date / Time No Known Allergies Allergy Verified 04/19/18 05:15 Results - Vital Signs Recent Vital Signs: Last Vital Signs Temp 97.9 F 04/25/18 15:32 Pulse 62 04/25/18 15:32 Resp 16 04/25/18 15:32 BP 129/70 04/25/18 15:32 Pulse Ox 99 04/25/18 15:32 - Labs Result Diagrams: 04/25/18 13:02 04/25/18 13:02 Labs: Laboratory Results - last 24 hr 04/25/18 04/25/18 04/25/18 13:02 13:02 13:02 WBC 13.0 H RBC 3.40 L Hgb 10.1 L Hct 30.1 L MCV 88.5 MCH 29.8 MCHC 33.7 RDW 15.4 H Plt Count 243 MPV 7.0 L Neut % (Auto) 84.1 H Lymph % (Auto) 9.6 L [place] % (Auto) 5.6 Eos % (Auto) 0.3 Baso % (Auto) 0.4 Neut # (Auto) 10.9 H Lymph # (Auto) 1.2 [place] # (Auto) 0.7 Eos # (Auto) 0.0 Baso # (Auto) 0.1 Neutrophils % (Manual) 86 H Lymphocytes % (Manual) 8 L Monocytes % (Manual) 6 Platelet Estimate Normal Polychromasia Slight Hypochromasia (manual) Slight Anisocytosis (manual) Slight PT 10.0 INR 0.9 APTT 22 Sodium 134 Potassium 4.3 Chloride 98 Carbon Dioxide 30 Anion Gap 11 BUN 38 H Creatinine 1.0 Est GFR ( Amer) > 60 Est GFR (Non-Af Amer) > 60 Random Glucose 119 H Calcium 8.1 L Total Bilirubin 0.4 AST 26 ALT 32 Alkaline Phosphatase 57 Total Creatine Kinase 54 L CK-MB (Mass) 2.01 Troponin I 0.0160 NT-Pro-B Natriuret Pep 2190 H Total Protein 5.8 L Albumin 3.2 L Globulin 2.7 Albumin/Globulin Ratio 1.2
[2018-04-25] MEDS: MethylPREDNISolone 40 mg Vial IVP SCH ×2 (17:47→22:26)
[2018-04-25] MEDS: Azithromycin 500 MG in Sodium Chloride 0.9% 250 ML IVPB SCH (17:47)
[2018-04-25] MEDS: cefTRIAXone IV 1 gm in Dextros 50 ML IVPB SCH (18:08)
--- NOTE | 2018-04-25 18:39 | CP.PCM.CON ---
History of Present Illness - History of Present Illness History of Present Illness: reason for consultation: shortness of breath This is a 67yM with pmhx of COPD, HTN, HLD, CAD s/p CABG, PPM presenting to ER with complaints of SOB.Patient was recently discharged from the hospital. He has had multiple admissions for CHF and chest pain. Patient has a CABG and a cardiac cath done in 2017 showed patent grafts patient had an echo done last year which showed mild LV dysfunction with EF of 45%.denies cough, denies fever or chills, denies chest pain. Patient states he could not sleep last night because of shortness of breath ROS: A 12pt ROS was negative except as above PmHx: As stated above PsHx: CABG, PPM FHx: Neg for colon cancer SHx: Denies current etoh, tobacco, drugs Review of Systems - Review of Systems All systems: reviewed and no additional remarkable complaints except (shortness of breath) Past Patient History - Infectious Disease Hx of Infectious Diseases: None - Past Medical History & Family History Past Medical History?: Yes - Past Social History Smoking Status: Former Smoker - CARDIAC Hx Atrial Fibrillation: Yes Hx Cardia Arrhythmia: Yes Hx Congestive Heart Failure: Yes Hx Hypercholesterolemia: Yes Hx Hypertension: Yes Hx Pacemaker: Yes - PULMONARY Hx Asthma: Yes Hx Bronchitis: Yes Hx Chronic Obstructive Pulmonary Disease (COPD): Yes Hx Emphysema: Yes - NEUROLOGICAL Hx Seizures: Yes - HEENT Hx HEENT Problems: No - RENAL Hx Chronic Kidney Disease: No - ENDOCRINE/METABOLIC Hx Endocrine Disorders: No - HEMATOLOGICAL/ONCOLOGICAL Hx Anemia: Yes Hx Human Immunodeficiency Virus (HIV): No - INTEGUMENTARY Hx Dermatological Problems: No - MUSCULOSKELETAL/RHEUMATOLOGICAL Hx Falls: No - GASTROINTESTINAL Hx Gastrointestinal Disorders: No - GENITOURINARY/GYNECOLOGICAL Hx Sexually Transmitted Disorders: No - PSYCHIATRIC Hx Substance Use: No - SURGICAL HISTORY Hx Coronary Artery Bypass Graft: Yes (x3) Hx Coronary Stent: Yes (x3) - ANESTHESIA Hx Anesthesia: Yes Hx Anesthesia Reactions: No Hx Malignant Hyperthermia: No Meds Allergies/Adverse Reactions: Allergies Allergy/AdvReac Type Severity Reaction Status Date / Time No Known Allergies Allergy Verified 04/19/18 05:15 - Medications Medications: Current Medications Albuterol/Ipratropium (Duoneb 3 Mg/0.5 Mg (3 Ml) Ud) 3 ml INH RQ6 [facility] Amiodarone HCl (Cordarone) 200 mg PO TID [facility] Last Admin: 04/25/18 17:47 Dose: 200 mg Aspirin (Ecotrin) 81 mg PO DAILY [facility] Carvedilol (Coreg) 3.125 mg PO Q12 [facility] Clopidogrel Bisulfate (Plavix) 75 mg PO DAILY [facility] Enalapril Maleate (Vasotec) 2.5 mg PO DAILY [facility] Enoxaparin Sodium (Lovenox) 40 mg SC DAILY [facility] Famotidine (Pepcid) 20 mg PO DAILY [facility] Furosemide (Lasix) 40 mg IVP DAILY [facility] Ceftriaxone Sodium (Rocephin Iv 1 Gm Duplex) 50 mls @ 100 mls/hr IVPB DAILY [facility] PRN Reason: Protocol Last Admin: 04/25/18 18:08 Dose: 100 mls/hr Azithromycin 500 mg/ Sodium (Chloride) 250 mls @ 250 mls/hr IVPB Q24H [facility] PRN Reason: Protocol Last Admin: 04/25/18 17:47 Dose: 250 mls/hr Methylprednisolone (Solu-Medrol) 40 mg IVP Q8 [facility] Last Admin: 04/25/18 17:47 Dose: 40 mg Physical Exam - Head Exam Head Exam: ATRAUMATIC, NORMOCEPHALIC - ENT Exam ENT Exam: Mucous Membranes Moist - Neck Exam Neck exam: Positive for: Normal Inspection - Respiratory Exam Respiratory Exam: Clear to Auscultation Bilateral - Cardiovascular Exam Cardiovascular Exam: REGULAR RHYTHM - GI/Abdominal Exam GI & Abdominal Exam: Normal Bowel Sounds, Soft - Extremities Exam Extremities exam: Positive for: normal inspection Results - Vital Signs Recent Vital Signs: Last Vital Signs Temp 97.9 F 04/25/18 15:32 Pulse 62 04/25/18 15:32 Resp 16 04/25/18 15:32 BP 129/70 04/25/18 15:32 Pulse Ox 99 04/25/18 15:32 - Labs Result Diagrams: 04/25/18 13:02 04/25/18 13:02 Labs: Laboratory Results - last 24 hr 04/25/18 04/25/18 04/25/18 13:02 13:02 13:02 WBC 13.0 H RBC 3.40 L Hgb 10.1 L Hct 30.1 L MCV 88.5 MCH 29.8 MCHC 33.7 RDW 15.4 H Plt Count 243 MPV 7.0 L Neut % (Auto) 84.1 H Lymph % (Auto) 9.6 L [place] % (Auto) 5.6 Eos % (Auto) 0.3 Baso % (Auto) 0.4 Neut # (Auto) 10.9 H Lymph # (Auto) 1.2 [place] # (Auto) 0.7 Eos # (Auto) 0.0 Baso # (Auto) 0.1 Neutrophils % (Manual) 86 H Lymphocytes % (Manual) 8 L Monocytes % (Manual) 6 Platelet Estimate Normal Polychromasia Slight Hypochromasia (manual) Slight Anisocytosis (manual) Slight PT 10.0 INR 0.9 APTT 22 Sodium 134 Potassium 4.3 Chloride 98 Carbon Dioxide 30 Anion Gap 11 BUN 38 H Creatinine 1.0 Est GFR ( Amer) > 60 Est GFR (Non-Af Amer) > 60 Random Glucose 119 H Calcium 8.1 L Total Bilirubin 0.4 AST 26 ALT 32 Alkaline Phosphatase 57 Total Creatine Kinase 54 L CK-MB (Mass) 2.01 Troponin I 0.0160 NT-Pro-B Natriuret Pep 2190 H Total Protein 5.8 L Albumin 3.2 L Globulin 2.7 Albumin/Globulin Ratio 1.2 Assessment & Plan (1) COPD exacerbation Status: Acute Comment: continue nebulizer treatment and steroids. Follow-up ABG (2) Chronic congestive heart failure Status: Acute
[2018-04-25 19:18] LABS: CK-MB 1.88 ng/mL (0.0-3.38)
[2018-04-25] MEDS: Albuterol-Ipratrop 3 mg / 0.5 (3 ml) UD INH SCH (20:51)
[2018-04-26] MEDS: Albuterol-Ipratrop 3 mg / 0.5 (3 ml) UD INH SCH ×4 (01:19→19:51)
[2018-04-26 04:41] LABS: BASO % 0.2 % (0.0-2.0); HEMOGLOBIN 11.9 g/dL (12.0-18.0); LYMPH # 0.5 K/uL (1.0-4.3); LYMPH % 3.3 % (20.0-40.0); MEAN CELL VOLUME 88.4 fL (80.0-94.0); MEAN CORPUSCULAR HEMOGLOBIN 29.6 pg (27.0-31.0); MEAN CORPUSCULAR HGB CONC 33.5 g/dL (33.0-37.0); MEAN PLATELET VOLUME 7.2 fL (7.2-11.7); MONO # 0.2 K/uL (0.0-0.8); MONO % 1.2 % (0.0-10.0); NEUT % 95.3 % (50.0-75.0); NRBC % 0.1 % (0.0-2.0); PLATELET COUNT 296 K/uL (130-400); RBC 4.02 Mil/uL (4.40-5.90); RED CELL DISTRIBUTION WIDTH 15.4 % (11.5-14.5); WHITE BLOOD COUNT 14.7 K/uL (4.8-10.8)
[2018-04-26] MEDS: MethylPREDNISolone 40 mg Vial IVP SCH ×3 (05:44→22:10)
[2018-04-26 05:55] LABS: BANDS 1 % (0-2); LYMPHOCYTE 6 % (20-40); MONOCYTE 3 % (0-10); NEUTROPHIL 90 % (50-75); PLATELET ESTIMATE NORMAL (NORMAL); TOTAL CELLS COUNTED 100
[2018-04-26] MEDS: cefTRIAXone IV 1 gm in Dextros 50 ML IVPB SCH (10:57)
[2018-04-26] MEDS: Enoxaparin 40 mg Syringe SC SCH (10:58)
--- NOTE | 2018-04-26 15:52 | CP.PCM.PN ---
Subjective - Date & Time of Evaluation Date of Evaluation: 04/26/18 Time of Evaluation: 09:00 - Subjective Subjective: patient seen and examined still complaining off shortness of breath Afebrile Denies any chest pain Objective - Vital Signs/Intake and Output Vital Signs (last 24 hours): Temp Pulse Resp BP Pulse Ox 97.7 F 60 14 105/80 96 04/26/18 12:00 04/26/18 15:44 04/26/18 15:17 04/26/18 15:17 04/26/18 15:17 Intake and Output: 04/26/18 04/26/18 06:59 18:59 Intake Total 150 620 Output Total 700 780 Balance -550 -160 - Medications Medications: Current Medications Albuterol/Ipratropium (Duoneb 3 Mg/0.5 Mg (3 Ml) Ud) 3 ml INH RQ6 [facility] Last Admin: 04/26/18 13:51 Dose: 3 ml Amiodarone HCl (Cordarone) 200 mg PO TID [facility] Last Admin: 04/26/18 14:00 Dose: Not Given Aspirin (Ecotrin) 81 mg PO DAILY [facility] Last Admin: 04/26/18 10:57 Dose: 81 mg Carvedilol (Coreg) 3.125 mg PO Q12 [facility] Last Admin: 04/26/18 10:57 Dose: 3.125 mg Clopidogrel Bisulfate (Plavix) 75 mg PO DAILY [facility] Last Admin: 04/26/18 10:56 Dose: 75 mg Enalapril Maleate (Vasotec) 2.5 mg PO DAILY [facility] Enoxaparin Sodium (Lovenox) 40 mg SC DAILY [facility] Last Admin: 04/26/18 10:58 Dose: 40 mg Famotidine (Pepcid) 20 mg PO DAILY [facility] Last Admin: 04/26/18 10:57 Dose: 20 mg Furosemide (Lasix) 40 mg IVP DAILY [facility] Last Admin: 04/26/18 10:58 Dose: 40 mg Ceftriaxone Sodium (Rocephin Iv 1 Gm Duplex) 50 mls @ 100 mls/hr IVPB DAILY [facility] PRN Reason: Protocol Last Admin: 04/26/18 10:57 Dose: 100 mls/hr Azithromycin 500 mg/ Sodium (Chloride) 250 mls @ 250 mls/hr IVPB Q24H [facility] PRN Reason: Protocol Last Admin: 04/25/18 17:47 Dose: 250 mls/hr Methylprednisolone (Solu-Medrol) 40 mg IVP Q8 [facility] Last Admin: 04/26/18 14:17 Dose: 40 mg - Labs Labs: 04/26/18 04:36 04/25/18 13:02 PT 10.0 SECONDS (9.7-12.2) 04/25/18 13:02 INR 0.9 04/25/18 13:02 APTT 22 SECONDS (21-34) 04/25/18 13:02 - Head Exam Head Exam: ATRAUMATIC, NORMOCEPHALIC - ENT Exam ENT Exam: Mucous Membranes Moist - Neck Exam Neck Exam: Normal Inspection - Respiratory Exam Respiratory Exam: Rales - Cardiovascular Exam Cardiovascular Exam: REGULAR RHYTHM - GI/Abdominal Exam GI & Abdominal Exam: Soft, Normal Bowel Sounds - Extremities Exam Extremities Exam: Normal Inspection - Neurological Exam Neurological Exam: Alert, Oriented x3 Assessment and Plan (1) COPD exacerbation Assessment & Plan: Continue with STEROIDS AND NEBULIZER TREATMENT Continue antibiotics ABG room air Status: Acute (2) Chronic congestive heart failure Status: Acute
--- NOTE | 2018-04-26 16:56 | CP.PCM.PN ---
Subjective - Date & Time of Evaluation Date of Evaluation: 04/26/18 Time of Evaluation: 13:00 - Subjective Subjective: clinically same Objective - Vital Signs/Intake and Output Vital Signs (last 24 hours): Temp Pulse Resp BP Pulse Ox 97.7 F 60 14 105/80 96 04/26/18 12:00 04/26/18 15:44 04/26/18 15:17 04/26/18 15:17 04/26/18 15:17 Intake and Output: 04/26/18 04/26/18 06:59 18:59 Intake Total 150 620 Output Total 700 780 Balance -550 -160 - Medications Medications: Current Medications Albuterol/Ipratropium (Duoneb 3 Mg/0.5 Mg (3 Ml) Ud) 3 ml INH RQ6 [facility] Last Admin: 04/26/18 13:51 Dose: 3 ml Amiodarone HCl (Cordarone) 200 mg PO TID [facility] Last Admin: 04/26/18 14:00 Dose: Not Given Aspirin (Ecotrin) 81 mg PO DAILY [facility] Last Admin: 04/26/18 10:57 Dose: 81 mg Carvedilol (Coreg) 3.125 mg PO Q12 [facility] Last Admin: 04/26/18 10:57 Dose: 3.125 mg Clopidogrel Bisulfate (Plavix) 75 mg PO DAILY [facility] Last Admin: 04/26/18 10:56 Dose: 75 mg Enalapril Maleate (Vasotec) 2.5 mg PO DAILY [facility] Enoxaparin Sodium (Lovenox) 40 mg SC DAILY [facility] Last Admin: 04/26/18 10:58 Dose: 40 mg Famotidine (Pepcid) 20 mg PO DAILY [facility] Last Admin: 04/26/18 10:57 Dose: 20 mg Furosemide (Lasix) 40 mg IVP DAILY [facility] Last Admin: 04/26/18 10:58 Dose: 40 mg Ceftriaxone Sodium (Rocephin Iv 1 Gm Duplex) 50 mls @ 100 mls/hr IVPB DAILY [facility] PRN Reason: Protocol Last Admin: 04/26/18 10:57 Dose: 100 mls/hr Azithromycin 500 mg/ Sodium (Chloride) 250 mls @ 250 mls/hr IVPB Q24H [facility] PRN Reason: Protocol Last Admin: 04/25/18 17:47 Dose: 250 mls/hr Methylprednisolone (Solu-Medrol) 40 mg IVP Q8 [facility] Last Admin: 04/26/18 14:17 Dose: 40 mg - Labs Labs: 04/26/18 04:36 04/25/18 13:02 PT 10.0 SECONDS (9.7-12.2) 04/25/18 13:02 INR 0.9 04/25/18 13:02 APTT 22 SECONDS (21-34) 04/25/18 13:02 - Constitutional Appears: Well - Head Exam Head Exam: ATRAUMATIC, NORMAL INSPECTION, NORMOCEPHALIC - Eye Exam Eye Exam: EOMI, Normal appearance, PERRL Pupil Exam: NORMAL ACCOMODATION, PERRL - ENT Exam ENT Exam: Mucous Membranes Moist, Normal Exam - Neck Exam Neck Exam: Full ROM, Normal Inspection. absent: Lymphadenopathy - Respiratory Exam Respiratory Exam: Decreased Breath Sounds - Cardiovascular Exam Cardiovascular Exam: REGULAR RHYTHM, +S1, +S2 - GI/Abdominal Exam GI & Abdominal Exam: Soft, Diminished Bowel Sounds - Rectal Exam Rectal Exam: Deferred
[2018-04-26] MEDS: Azithromycin 500 MG in Sodium Chloride 0.9% 250 ML IVPB SCH (18:04)
--- NOTE | 2018-04-27 01:01 | CON ---
DATE: 04/26/2018 CARDIOLOGY CONSULTATION REASON FOR CONSULTATION: Exacerbation of congestive heart failure. HISTORY OF PRESENT ILLNESS: The patient is a 67-year-old male who has history of coronary artery disease, status post coronary artery bypass surgery few years ago according to the patient, and history of permanent pacemaker placement at [facility] some 8 months ago, presented because of shortness of breath. The patient was recently admitted and was discharged day before yesterday after he was treated for CHF exacerbation. The patient denies any retrosternal chest pain at this time. SOCIAL HISTORY: The patient is a former smoker, quit after his open heart surgery. He lives by himself. His sons live far away, and he requested not to have them involved in his care. MEDICATIONS: Zithromax 500 mg intravenously daily, amiodarone 200 mg three times daily, Coreg 3.125 mg twice a day, aspirin 81 mg once a day, Lasix 40 mg intravenously once a daily, Lovenox 40 mg subcutaneously once a daily, Plavix 75 mg once a day, Rocephin 1 gm intravenously daily, Solu-Medrol 40 mg intravenously every 8 hours, Vasotec 2.5 mg once a day. REVIEW OF SYSTEMS: No fever or chills. The patient complains of dry cough. No reported ventricular tachycardia since the patient's presentation to the ICU. PHYSICAL EXAMINATION: GENERAL: The patient is an elderly male who does not appear to be in acute distress. VITAL SIGNS: Blood pressure 119/58, heart rate 60, temperature 97.9, and respirations 14. HEENT: Normocephalic. CHEST: Diffuse bilateral rhonchi. HEART: S1, S2 are regular. ABDOMEN: Soft. EXTREMITIES: Trace leg edema. LABORATORY DATA: SMA-7: Sodium 134, potassium 4.3, chloride 98, CO2 of 30, glucose 119, BUN 38, creatinine 1. Three sets of troponins are negative. PT, PTT, INR are all within normal limits. Today's hemoglobin and hematocrit 11.9 and 35.5, white count 14.7, and platelet count 297,000. Chest x-ray revealed mild CHF, left pleural effusion cannot not be excluded, sternotomy scar and dual-chamber pacemaker noted. Cardiac catheterization performed in January of last year, very severe multivessel disease with patent bypass grafts, and mild left ventricular diastolic dysfunction and the recommendation was to continue medical management. Echocardiography study performed 2 weeks ago revealed ejection fraction in the range of 40% to 45%, mildly dilated left atrium, and mild mitral insufficiency. ASSESSMENT: 1. Exacerbation of congestive heart failure. 2. Coronary artery disease, status post coronary artery bypass surgery. 3. Questionable history of ventricular tachycardia. RECOMMENDATIONS: Resume amiodarone 200 mg orally daily. Continue IV Zithromax 500 mg daily. Continue Coreg at 3.125 mg once a day, aspirin 81 mg once a day, Lasix 40 mg intravenously once a day, Plavix 75 mg once a day, Rocephin 1 gm intravenously daily, Solu-Medrol 40 mg intravenously every 8 hours and Vasotec 2.5 mg once a day. Stevie Christy MD [facility] # [id number]
[2018-04-27] MEDS: Albuterol-Ipratrop 3 mg / 0.5 (3 ml) UD INH SCH ×3 (01:52→13:09)
[2018-04-27] MEDS: MethylPREDNISolone 40 mg Vial IVP SCH ×2 (05:57→13:53)
[2018-04-27 06:32] LABS: BASO % 0.2 % (0.0-2.0); HEMOGLOBIN 11.6 g/dL (12.0-18.0); LYMPH # 0.5 K/uL (1.0-4.3); LYMPH % 2.4 % (20.0-40.0); MEAN CELL VOLUME 88.5 fL (80.0-94.0); MEAN CORPUSCULAR HEMOGLOBIN 29.5 pg (27.0-31.0); MEAN CORPUSCULAR HGB CONC 33.4 g/dL (33.0-37.0); MEAN PLATELET VOLUME 7.1 fL (7.2-11.7); MONO # 0.3 K/uL (0.0-0.8); MONO % 1.7 % (0.0-10.0); NEUT # 18.3 K/uL (1.8-7.0); NEUT % 95.7 % (50.0-75.0); PLATELET COUNT 266 K/uL (130-400); RBC 3.93 Mil/uL (4.40-5.90); RED CELL DISTRIBUTION WIDTH 15.2 % (11.5-14.5); WHITE BLOOD COUNT 19.2 K/uL (4.8-10.8)
[2018-04-27 06:47] LABS: ALB/GLOB RATIO 1.2 (1.0-2.1); ALBUMIN 3.5 g/dL (3.5-5.0); ALT/SGPT 28 U/L (21-72); AST/SGOT 28 U/L (17-59); BLOOD UREA NITROGEN 33 mg/dL (9-20); CALCIUM 8.3 mg/dl (8.6-10.4); GFR AFRICAN-AMERICAN > 60; GFR NON-AFRICAN AMERICAN > 60
[2018-04-27 08:26] LABS: LYMPHOCYTE 1 % (20-40); MONOCYTE 1 % (0-10); NEUTROPHIL 98 % (50-75); TOTAL CELLS COUNTED 100
[2018-04-27 08:27] LABS: ANISOCYTOSIS SLIGHT; PLATELET ESTIMATE NORMAL (NORMAL)
[2018-04-27] MEDS: Enoxaparin 40 mg Syringe SC SCH (09:42)
[2018-04-27] MEDS: cefTRIAXone IV 1 gm in Dextros 50 ML IVPB SCH (10:06)
--- NOTE | 2018-04-27 12:45 | CP.PCM.PN ---
Subjective - Date & Time of Evaluation Date of Evaluation: 04/27/18 Time of Evaluation: 10:20 - Subjective Subjective: CC: COPD Exacerbation HPI: Patient examined this morning at the bedside. Patient is not in acute distress. Patient reports improvement in his shortness of breath. Patient reports cough but denies any chest pain. Patient is afebrile. Lungs sounds are much improved. ROS: Constitutional: Patient denies fever and chills. Cardiovascular: Patient denies chest pain, palpitations. Respiratory: Patient denies shortness of breath or cough. Gastrointestinal: Patient denies nausea, vomiting, diarrhea. Physical Exam HEENT: Atraumatic, normocephalic, mucuous membranes moist Repiratory: Clear to auscultation bilaterally. No wheezing or rhonchi. No use of accessory muscles. Cardiovascular: +S1/ S2, regular rate and rhythm GI: Normal bowel sounds in all 4 quadrants, no tenderness, no distention Extremities: No LE edema Neurological: Alert, awake, oriented X3 Assessment: 75 year old female with PMHx of diabetes, CHF, CAD, CABG and pacemaker replacement. Patient has CHF exacerbation which is resolving with treatment. 1. COPD Exacerbation Status: Acute - Albuterol/ Ipratropium 3 ml INH RQ6 - Methylprednisolone 40 mg IVP Q8 - Ceftriaxone Sodium 50 mls @ 100 mls/ hr IVPB daily 2. CHF Status: Chronic - Furosemide 40 mg IVP Daily Objective - Vital Signs/Intake and Output Vital Signs (last 24 hours): Temp Pulse Resp BP Pulse Ox 97.6 F 66 17 122/59 L 89 L 04/27/18 08:00 04/27/18 10:00 04/27/18 10:00 04/27/18 10:07 04/27/18 10:00 Intake and Output: 04/27/18 04/27/18 06:59 18:59 Intake Total 500 Output Total 650 Balance -150 - Medications Medications: Current Medications Albuterol/Ipratropium (Duoneb 3 Mg/0.5 Mg (3 Ml) Ud) 3 ml INH RQ6 [facility] Last Admin: 04/27/18 07:06 Dose: 3 ml Amiodarone HCl (Cordarone) 200 mg PO TID [facility] Last Admin: 04/27/18 09:43 Dose: 200 mg Aspirin (Ecotrin) 81 mg PO DAILY [facility] Last Admin: 04/27/18 09:43 Dose: 81 mg Carvedilol (Coreg) 3.125 mg PO Q12 [facility] Last Admin: 04/27/18 09:43 Dose: 3.125 mg Clopidogrel Bisulfate (Plavix) 75 mg PO DAILY [facility] Last Admin: 04/27/18 09:43 Dose: 75 mg Enalapril Maleate (Vasotec) 2.5 mg PO DAILY [facility] Last Admin: 04/27/18 10:07 Dose: 2.5 mg Enoxaparin Sodium (Lovenox) 40 mg SC DAILY [facility] Last Admin: 04/27/18 09:42 Dose: 40 mg Famotidine (Pepcid) 20 mg PO DAILY [facility] Last Admin: 04/27/18 09:43 Dose: 20 mg Furosemide (Lasix) 40 mg IVP DAILY [facility] Last Admin: 04/27/18 09:43 Dose: 40 mg Ceftriaxone Sodium (Rocephin Iv 1 Gm Duplex) 50 mls @ 100 mls/hr IVPB DAILY [facility] PRN Reason: Protocol Last Admin: 04/27/18 10:06 Dose: 100 mls/hr Azithromycin 500 mg/ Sodium (Chloride) 250 mls @ 250 mls/hr IVPB Q24H [facility] PRN Reason: Protocol Last Admin: 04/26/18 18:04 Dose: 250 mls/hr Methylprednisolone (Solu-Medrol) 40 mg IVP Q8 [facility] Last Admin: 04/27/18 05:57 Dose: 40 mg - Labs Labs: 04/27/18 06:26 04/27/18 06:25 PT 10.0 SECONDS (9.7-12.2) 04/25/18 13:02 INR 0.9 04/25/18 13:02 APTT 22 SECONDS (21-34) 04/25/18 13:02 Assessment and Plan (1) COPD exacerbation Status: Acute (2) Chronic congestive heart failure Status: Acute
--- NOTE | 2018-04-27 13:49 | IP.NPCORE ---
Heart Failure Core Measure - Heart Failure Ejection Fraction: 40 % or Greater YRIS Inhibitor Prescribed: Yes Beta-Phong Prescribed: Carvedilol Angiotensin II Receptor Phong Prescribed: No Contraindication/Reason for not providing: ON YRIS AnticoagulationTherapy for Atrial Fibrillation/Atrialflutter: No Contraindication/Reason for not providing: NO AFIB Aldosterone Antagonist Prescribed: No Contraindication/Reason for not providing: EF > 40 Hydralazine Nitrate Prescribed: No Contraindication/Reason for not providing: EF > 40 Implantable Cardioverter Defibrillator Therapy: No Contraindication/Reason for not providing: HAS PPM Cardiac Resynchronization Therapy Prescribed: No Contraindication/Reason for not providing: HAS PPM - Follow up Will be discharged to: Home Follow Up Date (must be within 7 days from discharge): 05/04/18 Follow Up Time: 09:00
[2018-04-27 13:52] VITALS: BP 139/71
[2018-04-27 13:53] VITALS: TEMP 97.5; O2SAT 98
--- NOTE | 2018-04-27 14:45 | CP.PCM.PN ---
Subjective - Date & Time of Evaluation Date of Evaluation: 04/27/18 Time of Evaluation: 14:40 - Subjective Subjective: PT SEEN BY DR. STORY THIS MORNING AND CLEARED FOR D/C HOME TODAY. PT ALSO LEXUS BY DR. Juve VALENCIA AND DROP PRESS HAND THIS AFTERNOON AND PT CLEARED BY DR VALENCIA FOR D/C. PT TO F/U WITH HIM IN THE OFFICE NEXT WEEK. PT ALREADY HAS ALL MEDICATIONS FILLED FROM 04/24/18 (WAS PROVIDED WITH A 3 MONTH SUPPLY OF ALL MEDS PAID FOR BY THE HOSPITAL). I HAVE CREATED A DETAILED LIST FOR ALL MEDICATIONS AND HOW/WHEN TO TAKE ALL MEDS. NEW RX GIVEN TODAY FOR NEB TX AND NEB MACHINE (PAID FOR BY THIS DROP PRESS HAND). ENCOURAGED PT TO BE COMPLIANT WITH ALL MEDICATIONS AND FOLLOW UP WITH DOCTORS IN ORDER TO PREVENT READMISSION. PT HAS AIR CONDITIONER AT HOME. EDUCATION DONE REGARDING SMOKING WELL. PT VERBALIZES UNDERSTANDING OF ALL DISCHARGE INSTRUCTIONS AND MEDICATIONS. SEE BELOW FOR FURTHER INFORMATION. NO FURTHER ORDERS. -PLEASE CALL THE OFFICE OF DR. Viktor VALENCIA AND MAKE A FOLLOW UP APPOINTMENT WITH HIM FOR NEXT WEEK. -YOU MAY ALSO CALL DR. STORY (LUNG DOCTOR) AND DR. ANDUJAR (HEART DOCTOR) IN THEIR OFFICES TO MAKE AN APPOINTMENT FOR FOLLOW UP. -DURING YOUR LAST ADMISSION ON 04/24/18 YOU WERE PROVIDED WITH 3 MONTHS OF ALL OF YOUR MEDICATIONS. PLEASE FOLLOW THE INSTRUCTIONS PROVIDED TO YOU REGARDING HOW TO TAKE ALL OF THE MEDICATIONS. PLEASE DO NOT MISS ANY DOSES!!! TAKE ALL OF THEM EXACTLY PRESCRIBED. -FOR FURTHER QUESTIONS OR CONCERNS, CONTACT DR. Viktor VALENCIA. -TAKE MEDICATIONS FOLLOWS: 1) AMIODARONE 200 MG (FOR YOUR HEART)---TAKE 1 TABLET BY MOUTH THREE TIMES A DAY (WITH BREAKFAST, LUNCH, AND DINNER). 2) ASPIRIN 81 MG (FOR HEART PROTECTION AND CIRCULATION)---TAKE 1 TABLET BY MOUTH ONCE A DAY (TAKE IN THE MORNING). 3) PLAVIX 75 MG (FOR HEART PROTECTION AND CIRCULATION)---TAKE 1 TABLET BY MOUTH ONCE A DAY (TAKE IN THE MORNING). 4) CARVEDILOL 3.125 MG (FOR YOU HEART AND BLOOD PRESSURE)---TAKE 1 TABLET BY MOUTH EVERY 12 HOURS (WITH BREAKFAST AND WITH DINNER). 5) ENALAPRIL 2.5 MG (FOR YOU HEART AND BLOOD PRESSURE)---TAKE 1 TABLET BY MOUTH ONCE A DAY (TAKE IN THE MORNING). 6) FAMOTIDINE 20 MG (FOR YOUR STOMACH PROTECTION WHILE TAKING MULTIPLE MEDICATIONS)---TAKE 1 TABLET BY MOUTH ONCE A DAY (TAKE IN THE MORNING). 7) FUROSEMIDE 20 MG (FOR YOUR HEART; DIURETIC)---TAKE 1 TABLET BY MOUTH ONCE A DAY (TAKE IN THE MORNING). 8) PREDNISONE 20 MG (FOR YOUR BREATHING)---TAKE 1 TABLET ONCE A DAY (TAKE IN THE MORNING) FOR A TOTAL OF 9 DAYS (START THIS ON 04/28/18) AND MAKE SURE YOU TAKE UNTIL THE 9 DAYS ARE COMPLETED. 9) ALBUTEROL NEBULIZER (FOR YOUR BREATHING; TO BE USED NEEDED ONLY IF YOU FEEL SHORT OF BREATH, HAVE ALOT OF COUGHING OR WHEEZING)-- USE WITH THE NEBULIZER MACHINE, FOLLOW INSTRUCTIONS HOW TO CONNECT THE MASK AND TUBING TO THE MACHINE. YOU MAY USE THIS MEDICATION EVERY 6 HOURS NEEDED. Objective - Vital Signs/Intake and Output Vital Signs (last 24 hours): Temp Pulse Resp BP Pulse Ox 97.5 F L 63 13 139/71 98 04/27/18 12:00 04/27/18 12:00 04/27/18 12:00 04/27/18 11:54 04/27/18 12:00 Intake and Output: 04/27/18 04/27/18 06:59 18:59 Intake Total 500 Output Total 650 Balance -150 - Medications Medications: Current Medications Albuterol/Ipratropium (Duoneb 3 Mg/0.5 Mg (3 Ml) Ud) 3 ml INH RQ6 [facility] Last Admin: 04/27/18 13:09 Dose: 3 ml Amiodarone HCl (Cordarone) 200 mg PO TID [facility] Last Admin: 04/27/18 13:53 Dose: 200 mg Aspirin (Ecotrin) 81 mg PO DAILY [facility] Last Admin: 04/27/18 09:43 Dose: 81 mg Carvedilol (Coreg) 3.125 mg PO Q12 [facility] Last Admin: 04/27/18 09:43 Dose: 3.125 mg Clopidogrel Bisulfate (Plavix) 75 mg PO DAILY [facility] Last Admin: 04/27/18 09:43 Dose: 75 mg Enalapril Maleate (Vasotec) 2.5 mg PO DAILY [facility] Last Admin: 04/27/18 10:07 Dose: 2.5 mg Enoxaparin Sodium (Lovenox) 40 mg SC DAILY [facility] Last Admin: 04/27/18 09:42 Dose: 40 mg Famotidine (Pepcid) 20 mg PO DAILY [facility] Last Admin: 04/27/18 09:43 Dose: 20 mg Furosemide (Lasix) 40 mg IVP DAILY [facility] Last Admin: 04/27/18 09:43 Dose: 40 mg Ceftriaxone Sodium (Rocephin Iv 1 Gm Duplex) 50 mls @ 100 mls/hr IVPB DAILY [facility] PRN Reason: Protocol Last Admin: 04/27/18 10:06 Dose: 100 mls/hr Azithromycin 500 mg/ Sodium (Chloride) 250 mls @ 250 mls/hr IVPB Q24H [facility] PRN Reason: Protocol Last Admin: 04/26/18 18:04 Dose: 250 mls/hr Methylprednisolone (Solu-Medrol) 40 mg IVP Q8 [facility] Last Admin: 04/27/18 13:53 Dose: 40 mg - Labs Labs: 04/27/18 06:26 04/27/18 06:25 PT 10.0 SECONDS (9.7-12.2) 04/25/18 13:02 INR 0.9 04/25/18 13:02 APTT 22 SECONDS (21-34) 04/25/18 13:02
[2018-04-27 16:01] VITALS: PULSE 67; RESP 16
--- NOTE | 2018-04-27 21:57 | PN ---
DATE: 04/27/2018 SUBJECTIVE: The patient still experiences shortness of breath and dizziness. No report of supraventricular tachycardia. PHYSICAL EXAMINATION: VITAL SIGNS: Blood pressure 139/71, heart rate 61, temperature 97.5, respirations 16. HEENT: Normocephalic. CHEST: Bibasilar rhonchi. HEART: S1, S2, regular. EXTREMITIES: No edema. LABORATORY DATA: Today's SMA-7 is within normal limits except glucose of 133, chloride of 96 and BUN of 33. Three sets of troponins are negative. Today's hemoglobin and hematocrit 11.6 and 34.7. White count 19.2, platelet count 166,000. ASSESSMENT: 1. Exacerbation of congestive heart failure. 2. Coronary artery disease, status post coronary artery bypass surgery. 3. History of dual-chamber pacemaker placement a few months ago at [facility]. 4. Exacerbation of chronic obstructive lung disease. RECOMMENDATIONS: Continue current IV Zithromax, oral amiodarone. Continue Coreg 3.125 mg twice a day, Lasix 40 mg intravenously once a day, a day, Plavix 75 mg once a day, Solu-Medrol 40 mg intravenously every 8 hours, and Vasotec 2.5 mg once a day. The patient can be transferred to telemetry. Stevie Christy MD
--- NOTE | 2018-04-30 19:20 | PQF ---
PROVIDER RESPONSE TEXT: Acute on chronic combined chf REVIEWER QUERY TEXT: CHF Acuity and Type Congestive Heart Failure is documented in the Medical Record. Please document the type and acuity (in cludes probable or suspected) Such as: Type: -- Systolic -- Diastolic -- Combined -- Other, please specify Acuity: -- Acute -- Chronic -- Acute on chronic -- Other, please specify Also please document the underlying cause of the CHF (includes probable or suspected) The patient's Clinical Indicators include: 67 year old male Patient presented to the ED with SOB. History of HTN/CHF ; COPD ; DM. . ProBnp on a dmission was 2190H found to have Acute exacerbation of CHF and COPD. Query created by: Tonia Casas on 04/30/2018 10:56 AM Electronically signed by: Caitlin PAUL 04/30/2018 7:17 PM
== END 2018-04-27 15:50 | disposition home or self-care (01) | DRG 190 ==
LOC: C.ER 11:55 → C.9E 14:19 → C.9I 18:40 → OBSVTOIN 04-26 16:48
PROVIDERS: ADMIT Internal Medicine Nephrology; ATTEND Internal Medicine Nephrology
DX: J44.1 Chronic obstructive pulmonary disease with (acute) exacerbation (principal); I50.43 Acute on chronic combined systolic (congestive) and diastolic (congestive) heart failure; I47.2 Ventricular tachycardia; I11.0 Hypertensive heart disease with heart failure; E11.9 Type 2 diabetes mellitus without complications; E78.00 Pure hypercholesterolemia, unspecified; I25.10 Atherosclerotic heart disease of native coronary artery without angina pectoris; I48.91 Unspecified atrial fibrillation; Z95.0 Presence of cardiac pacemaker; Z95.1 Presence of aortocoronary bypass graft; Z95.5 Presence of coronary angioplasty implant and graft; Z87.891 Personal history of nicotine dependence

== ENCOUNTER 2018-05-04 07:11 | Inpatient (IN) | payer MEDICARE ==
[2018-05-04 07:12] VITALS: BMI 23.0
[2018-05-04] MEDS ORDERED: Albuterol-Ipratrop 3 mg / 0.5 (3 ml) UD INH STA (07:49)
[2018-05-04] MEDS ORDERED: Albuterol-Ipratrop 3 mg / 0.5 (3 ml) UD ONE (08:14)
[2018-05-04 08:20] LABS: BASO # 0.1 K/uL (0.0-0.2); BASO % 1.3 % (0.0-2.0); EOS # 0.3 K/uL (0.0-0.7); HEMOGLOBIN 13.5 g/dL (12.0-18.0); MEAN CELL VOLUME 89.5 fL (80.0-94.0); MEAN CORPUSCULAR HEMOGLOBIN 30.6 pg (27.0-31.0); MEAN CORPUSCULAR HGB CONC 34.2 g/dL (33.0-37.0); MONO # 0.5 K/uL (0.0-0.8); NEUT # 4.7 K/uL (1.8-7.0); NEUT % 70.7 % (50.0-75.0); NRBC % 0.1 % (0.0-2.0); RBC 4.43 Mil/uL (4.40-5.90); RED CELL DISTRIBUTION WIDTH 15.5 % (11.5-14.5); WHITE BLOOD COUNT 6.6 K/uL (4.8-10.8)
--- NOTE | 2018-05-04 08:25 | RAD ---
Date of service: 05/04/2018 PROCEDURE: CHEST RADIOGRAPH, 1 VIEW HISTORY: Shortness of breath COMPARISON: 04/25/2018. FINDINGS: LUNGS: The lungs are hyperinflated and there is mild peribronchial thickening. Also noted is mild pulmonary venous congestion. No focal consolidation. PLEURA: No pneumothorax. Small left pleural effusion. CARDIOVASCULAR: The heart is normal in size. Status post CABG. There is stable position of left-sided pacemaker OSSEOUS STRUCTURES: No significant abnormalities. VISUALIZED UPPER ABDOMEN: Normal. OTHER FINDINGS: None. IMPRESSION: No active pulmonary disease. COPD. Mild pulmonary venous congestion and small left pleural effusion.
[2018-05-04 08:36] LABS: ALB/GLOB RATIO 1.3 (1.0-2.1); ALBUMIN 4.9 g/dL (3.5-5.0); ALT/SGPT 46 U/L (21-72); AST/SGOT 43 U/L (17-59); BLOOD UREA NITROGEN 24 mg/dL (9-20); CALCIUM 9.1 mg/dl (8.6-10.4); GFR AFRICAN-AMERICAN > 60; GFR NON-AFRICAN AMERICAN > 60
--- NOTE | 2018-05-04 08:42 | C.PDOC ---
History Of Present Illness 67 y/o male presents to ED with c/o sob and chest tightness intermittently "for few days". Patient was recently admitted to hospital on 04/25/18 until 05/10 for CHF and COPD. Patient denies palptiations, leg swelling, nausea, vomiting or any other complaints at this time. Relates good med compliance not smoking lives alone Time Seen by Provider: 05/04/18 07:39 Chief Complaint (Nursing): Shortness Of Breath History Per: Patient History/Exam Limitations: no limitations Onset/Duration Of Symptoms: Days Current Symptoms Are (Timing): Still Present Initiating Event: Upper Respiratory Illness Quality: Tightness Past Medical History Reviewed: Historical Data, Nursing Documentation, Vital Signs Vital Signs: Last Vital Signs Temp 98.3 F 05/04/18 07:16 Pulse 70 05/04/18 07:16 Resp 20 05/04/18 07:40 BP 131/76 05/04/18 07:16 Pulse Ox 99 05/04/18 08:42 - Medical History PMH: Anemia, Asthma, Atrial Fibrillation, Bronchitis, CAD, Cardia Arrhythmia, CHF, COPD, Emphysema, HTN, Hypercholesterolemia, Malignancy (right lung mass), Seizures Surgical History: CABG (x3), Coronary Stent (x3), Pacemaker - [facility] Procedures FLUOROSCOPY OF LEFT HEART USING OTHER CONTRAST (01/22/17) INSERT PACE. DUAL JOHN IN CHEST SUBCU/FASCIA, OPEN (02/17/17) INSERTION OF PACEMAKER LEAD INTO R VENTRICLE, PERC APPROACH (02/17/17) INSERTION OF PACEMAKER LEAD INTO RIGHT ATRIUM, PERC APPROACH (02/17/17) INTRODUCTION OF SERUM/TOX/VACCINE INTO MUSCLE, PERC APPROACH (01/22/17) MEASURE OF CARDIAC SAMPL & PRESSURE, L HEART, PERC APPROACH (01/22/17) Family History: States: No Known Family Hx - Social History Hx Alcohol Use: Yes Hx Substance Use: No - Immunization History Hx Tetanus Toxoid Vaccination: No Hx Influenza Vaccination: No Hx Pneumococcal Vaccination: No Review Of Systems Constitutional: Negative for: Fever, Chills Cardiovascular: Positive for: Chest Pain. Negative for: Palpitations Respiratory: Positive for: Shortness of Breath. Negative for: Cough Gastrointestinal: Negative for: Nausea, Vomiting Skin: Negative for: Rash Physical Exam - Physical Exam Appears: Non-toxic, No Acute Distress Skin: Warm, Dry, No Rash Head: Atraumatic, Normacephalic Eye(s): bilateral: Normal Inspection Oral Mucosa: Moist Neck: Supple Cardiovascular: Rhythm Regular Respiratory: Decreased Breath Sounds (distant), No Rales, No Rhonchi, Wheezing ( on left side) Gastrointestinal/Abdominal: Soft, No Tenderness, No Guarding, No Rebound Extremity: No Pedal Edema, Capillary Refill (<2 seconds) Neurological/Psych: Oriented x3, Normal Speech, Normal Cognition ED Course And Treatment - Laboratory Results Result Diagrams: 05/04/18 07:41 05/04/18 07:41 Lab Interpretation: Abnormal (bnp 1750, trop neg.) ECG: Interpreted By Fl ECG Rhythm: A Paced ECG Interpretation: Normal Rate From EC O2 Sat by Pulse Oximetry: 99 (RA) Pulse Ox Interpretation: Normal - Radiology CXR: Interpreted by Me CXR Interpretation: Yes: Heart Size, Other (+ persistent small L pleural effusion, no pna/pnx) Reevaluation Time: 10:30 Reassessment Condition: Improved - Physician Consult Information Outcome Of Conversation: 0800, 1030: d/w Dr. Viktor Mendoza- prior adm MD- ok to admit. Medical Decision Making Medical Decision Making: copd/CHf exacerbation, recent adm for same. Disposition Doctor Will See Patient In The: Hospital Counseled Patient/Family Regarding: Studies Performed, Diagnosis - Disposition Disposition: HOSPITALIZED Disposition Time: 10:31 Condition: GOOD Forms: [facility] (Armenian) - Clinical Impression Clinical Impression: COPD exacerbation, CHF exacerbation - Scribe Statement The provider has reviewed the documentation as recorded by the Victoria Dubon All medical record entries made by the Victoria were at my direction and personally dictated by me. I have reviewed the chart and agree that the record accurately reflects my personal performance of the history, physical exam, medical decision making, and the department course for this patient. I have also personally directed, reviewed, and agree with the discharge instructions and disposition.
[2018-05-04 08:48] LABS: B-TYPE NATRIURETIC PEPTIDE 1750 pg/mL (0-900)
[2018-05-04 12:12] LABS: SQUAMOUS EPITHIAL < 1 /hpf (0-5); URINE BILIRUBIN NEGATIVE (NEGATIVE); URINE BLOOD NEGATIVE (NEGATIVE); URINE CLARITY Clear (Clear); URINE COLOR Yellow (YELLOW); URINE GLUCOSE (UA) NORMAL (Normal); URINE LEUKOCYTE ESTERASE NEG Leu/uL (Negative); URINE PROTEIN NEGATIVE (NEGATIVE); URINE UROBILINOGEN NORMAL mg/dL (0.2-1.0)
[2018-05-04] MEDS ORDERED: Albuterol-Ipratrop 3 mg / 0.5 (3 ml) UD INH PRN (19:48)
--- NOTE | 2018-05-04 19:48 | CP.PCM.HP ---
Past Patient History - Infectious Disease Hx of Infectious Diseases: None - Past Medical History & Family History Past Medical History?: Yes - Past Social History Smoking Status: Former Smoker - CARDIAC Hx Cardiac Disorders: Yes Hx Atrial Fibrillation: Yes Hx Cardia Arrhythmia: Yes Hx Congestive Heart Failure: Yes Hx Hypercholesterolemia: Yes Hx Hypertension: Yes Hx Pacemaker: Yes - PULMONARY Hx Respiratory Disorders: Yes Hx Asthma: Yes Hx Bronchitis: Yes Hx Chronic Obstructive Pulmonary Disease (COPD): Yes Hx Emphysema: Yes - NEUROLOGICAL Hx Neurological Disorder: Yes Hx Seizures: Yes - HEENT Hx HEENT Problems: No - RENAL Hx Chronic Kidney Disease: No - ENDOCRINE/METABOLIC Hx Endocrine Disorders: No - HEMATOLOGICAL/ONCOLOGICAL Hx Blood Disorders: Yes Hx Anemia: Yes - INTEGUMENTARY Hx Dermatological Problems: No - MUSCULOSKELETAL/RHEUMATOLOGICAL Hx Musculoskeletal Disorders: No Hx Falls: No - GASTROINTESTINAL Hx Gastrointestinal Disorders: No - GENITOURINARY/GYNECOLOGICAL Hx Genitourinary Disorders: No Hx Sexually Transmitted Disorders: No - PSYCHIATRIC Hx Psychophysiologic Disorder: No Hx Substance Use: No - SURGICAL HISTORY Hx Surgeries: Yes Hx Coronary Artery Bypass Graft: Yes (x3) Hx Coronary Stent: Yes (x3) - ANESTHESIA Hx Anesthesia: Yes Hx Anesthesia Reactions: No Hx Malignant Hyperthermia: No Meds Allergies/Adverse Reactions: Allergies Allergy/AdvReac Type Severity Reaction Status Date / Time No Known Allergies Allergy Verified 05/04/18 07:14 Results - Vital Signs Recent Vital Signs: Last Vital Signs Temp 97.9 F 05/04/18 15:36 Pulse 60 05/04/18 15:36 Resp 20 05/04/18 15:36 BP 99/53 L 05/04/18 15:36 Pulse Ox 99 05/04/18 15:36 - Labs Result Diagrams: 05/04/18 07:41 05/04/18 07:41 Labs: Laboratory Results - last 24 hr 05/04/18 05/04/18 05/04/18 07:41 07:41 12:02 WBC 6.6 D RBC 4.43 Hgb 13.5 Hct 39.7 MCV 89.5 MCH 30.6 MCHC 34.2 RDW 15.5 H Plt Count 221 MPV 7.0 L Neut % (Auto) 70.7 Lymph % (Auto) 15.0 L [place] % (Auto) 8.0 Eos % (Auto) 5.0 H Baso % (Auto) 1.3 Neut # (Auto) 4.7 Lymph # (Auto) 1.0 [place] # (Auto) 0.5 Eos # (Auto) 0.3 Baso # (Auto) 0.1 Sodium 139 Potassium 3.6 Chloride 97 L Carbon Dioxide 30 Anion Gap 16 BUN 24 H Creatinine 1.0 Est GFR ( Amer) > 60 Est GFR (Non-Af Amer) > 60 Random Glucose 89 Calcium 9.1 Total Bilirubin 0.9 AST 43 ALT 46 Alkaline Phosphatase 111 Troponin I 0.0240 NT-Pro-B Natriuret Pep 1750 H Total Protein 8.7 H Albumin 4.9 Globulin 3.8 Albumin/Globulin Ratio 1.3 Urine Color Yellow Urine Clarity Clear Urine pH 6.0 Ur Specific [place] 1.013 Urine Protein Negative Urine Glucose (UA) Normal Urine Ketones Negative Urine Blood Negative Urine Nitrate Negative Urine Bilirubin Negative Urine Urobilinogen Normal Ur Leukocyte Esterase Neg Urine WBC (Auto) 1 Urine RBC (Auto) < 1 Ur Squamous Epith Cells < 1
[2018-05-05] MEDS: Pantoprazole 40 mg EC Tab PO SCH (09:24)
[2018-05-05] MEDS: Enoxaparin 40 mg Syringe SC SCH (09:24)
--- NOTE | 2018-05-05 15:03 | CP.PCM.PN ---
Subjective - Date & Time of Evaluation Date of Evaluation: 05/05/18 Time of Evaluation: 11:30 - Subjective Subjective: clinically same Objective - Vital Signs/Intake and Output Vital Signs (last 24 hours): Temp Pulse Resp BP Pulse Ox 98.1 F 61 18 128/76 100 05/05/18 08:00 05/05/18 08:00 05/05/18 08:00 05/05/18 14:11 05/05/18 08:00 - Medications Medications: Current Medications Albuterol/Ipratropium (Duoneb 3 Mg/0.5 Mg (3 Ml) Ud) 3 ml INH RQ6 PRN PRN Reason: Shortness of Breath Last Admin: 05/05/18 07:23 Dose: 3 ml Amiodarone HCl (Cordarone) 200 mg PO TID [facility] Last Admin: 05/05/18 14:11 Dose: 200 mg Aspirin (Ecotrin) 81 mg PO DAILY [facility] Last Admin: 05/05/18 14:14 Dose: 81 mg Carvedilol (Coreg) 3.125 mg PO BID [facility] Last Admin: 05/05/18 09:25 Dose: 3.125 mg Clopidogrel Bisulfate (Plavix) 75 mg PO DAILY [facility] Last Admin: 05/05/18 09:25 Dose: 75 mg Enalapril Maleate (Vasotec) 2.5 mg PO DAILY [facility] Last Admin: 05/05/18 09:24 Dose: 2.5 mg Enoxaparin Sodium (Lovenox) 40 mg SC DAILY [facility] Last Admin: 05/05/18 09:24 Dose: 40 mg Famotidine (Pepcid) 20 mg PO DAILY [facility] Last Admin: 05/05/18 09:26 Dose: 20 mg Furosemide (Lasix) 40 mg IVP DAILY [facility] Last Admin: 05/05/18 14:11 Dose: 40 mg Ceftriaxone Sodium 1 gm/ (Sodium Chloride) 100 mls @ 100 mls/hr IVPB Q24H [facility] PRN Reason: Protocol Last Admin: 05/04/18 22:22 Dose: 100 mls/hr Pantoprazole Sodium (Protonix Ec Tab) 40 mg PO DAILY [facility] Last Admin: 05/05/18 09:24 Dose: 40 mg - Labs Labs: 05/04/18 07:41 05/04/18 07:41 - Constitutional Appears: Well - Head Exam Head Exam: ATRAUMATIC, NORMAL INSPECTION, NORMOCEPHALIC - Eye Exam Eye Exam: EOMI, Normal appearance, PERRL Pupil Exam: NORMAL ACCOMODATION, PERRL - ENT Exam ENT Exam: Mucous Membranes Moist, Normal Exam - Neck Exam Neck Exam: Full ROM, Normal Inspection. absent: Lymphadenopathy - Respiratory Exam Respiratory Exam: Decreased Breath Sounds - Cardiovascular Exam Cardiovascular Exam: REGULAR RHYTHM, +S1, +S2 - GI/Abdominal Exam GI & Abdominal Exam: Soft, Diminished Bowel Sounds - Rectal Exam Rectal Exam: Deferred
[2018-05-05] MEDS: Aluminum Hydroxide/Magnesium Hydroxide Susp (30 mL) PO PRN (21:05)
[2018-05-06] MEDS ORDERED: Aluminum Hydroxide/Magnesium Hydroxide Susp (30 mL) PO SCH
[2018-05-06] MEDS: Aluminum Hydroxide/Magnesium Hydroxide Susp (30 mL) PO PRN ×2 (06:04→20:23)
[2018-05-06] MEDS: Pantoprazole 40 mg EC Tab PO SCH (10:31)
[2018-05-06] MEDS: Enoxaparin 40 mg Syringe SC SCH (10:32)
--- NOTE | 2018-05-06 16:57 | CP.PCM.PN ---
Subjective - Date & Time of Evaluation Date of Evaluation: 05/06/18 Time of Evaluation: 16:55 - Subjective Subjective: CHART REVIEWED, PT SEEN AND EXAMINED., COVERING DR Juve VALENCIA PT ALERT, LESS SOB. NO COUGH., ROS ; OTHERWISE NEG. Objective - Vital Signs/Intake and Output Vital Signs (last 24 hours): Temp Pulse Resp BP Pulse Ox 98.3 F 63 20 115/67 99 05/06/18 15:00 05/06/18 15:00 05/06/18 15:00 05/06/18 15:00 05/06/18 15:00 Intake and Output: 05/06/18 05/06/18 06:59 18:59 Intake Total 400 Balance 400 - Medications Medications: Current Medications Al Hydrox/Mg Hydrox/Simethicone (Maalox 30 Ml) 30 ml PO Q6 PRN PRN Reason: stomach upset Last Admin: 05/06/18 06:04 Dose: 30 ml Albuterol/Ipratropium (Duoneb 3 Mg/0.5 Mg (3 Ml) Ud) 3 ml INH RQ6 PRN PRN Reason: Shortness of Breath Last Admin: 05/05/18 07:23 Dose: 3 ml Amiodarone HCl (Cordarone) 200 mg PO TID [facility] Last Admin: 05/06/18 14:05 Dose: 200 mg Aspirin (Ecotrin) 81 mg PO DAILY [facility] Last Admin: 05/06/18 10:31 Dose: 81 mg Carvedilol (Coreg) 3.125 mg PO BID [facility] Last Admin: 05/06/18 10:32 Dose: 3.125 mg Clopidogrel Bisulfate (Plavix) 75 mg PO DAILY [facility] Last Admin: 05/06/18 10:31 Dose: 75 mg Enalapril Maleate (Vasotec) 2.5 mg PO DAILY [facility] Last Admin: 05/06/18 10:30 Dose: 2.5 mg Enoxaparin Sodium (Lovenox) 40 mg SC DAILY [facility] Last Admin: 05/06/18 10:32 Dose: 40 mg Famotidine (Pepcid) 20 mg PO DAILY [facility] Last Admin: 05/06/18 10:31 Dose: 20 mg Furosemide (Lasix) 40 mg IVP DAILY [facility] Last Admin: 05/06/18 10:31 Dose: 40 mg Pantoprazole Sodium (Protonix Ec Tab) 40 mg PO DAILY [facility] Last Admin: 05/06/18 10:31 Dose: 40 mg - Labs Labs: 05/04/18 07:41 05/04/18 07:41 - Constitutional Appears: No Acute Distress, Chronically Ill - Head Exam Head Exam: ATRAUMATIC, NORMOCEPHALIC - Eye Exam Eye Exam: EOMI, Normal appearance - ENT Exam ENT Exam: Mucous Membranes Moist - Neck Exam Neck Exam: Normal Inspection - Respiratory Exam Respiratory Exam: Decreased Breath Sounds. absent: Wheezes, Respiratory Distress - Cardiovascular Exam Cardiovascular Exam: Irregular Rhythm, +S1, +S2 - GI/Abdominal Exam GI & Abdominal Exam: Soft. absent: Tenderness - Rectal Exam Rectal Exam: Deferred - Extremities Exam Extremities Exam: absent: Calf Tenderness, Pedal Edema - Neurological Exam Neurological Exam: Alert, Awake, CN II-XII Intact, Normal Gait, Oriented x3 - Psychiatric Exam Psychiatric exam: Normal Mood - Skin Skin Exam: absent: Rash Assessment and Plan (1) COPD exacerbation Status: Acute (2) CHF exacerbation Status: Chronic (3) Acute chest pain Status: Acute (4) Pleural effusion Status: Acute (5) Anemia Status: Chronic (6) Atrial fibrillation Status: Chronic (7) CAD (coronary artery disease) Status: Chronic (8) Coumadin toxicity Status: Resolved - Assessment and Plan (Free Text) Assessment: RESP STATUS IMPROVING., CONT PULM TOILET., NEB BD., MONITOR O2 SAT . DIURESIS TOLERATED. ON AMIODARONE. CXR REVIEWED. CARDIO EVAL. PROG GUARDED. DISCUSSED WITH STAFF.
[2018-05-07] MEDS ORDERED: Simethicone 80 mg Chewtab PO ONE (00:14)
[2018-05-07] MEDS ORDERED: Simethicone 80 mg Chewtab PO PRN (08:31)
[2018-05-07] MEDS: Enoxaparin 40 mg Syringe SC SCH (10:18)
--- NOTE | 2018-05-07 13:11 | CP.PCM.PN ---
Subjective - Date & Time of Evaluation Date of Evaluation: 05/07/18 Time of Evaluation: 13:08 - Subjective Subjective: COVERING DR Juve VALENCIA PT ALERT, FEELS SAME., +DYSPEPIA. ROS ; OTHERWISE NEG. Objective - Vital Signs/Intake and Output Vital Signs (last 24 hours): Temp Pulse Resp BP Pulse Ox 97.5 F L 60 20 107/69 99 05/07/18 07:00 05/07/18 07:40 05/07/18 07:00 05/07/18 10:19 05/07/18 07:00 - Medications Medications: Current Medications Al Hydrox/Mg Hydrox/Simethicone (Maalox 30 Ml) 30 ml PO Q6 PRN PRN Reason: stomach upset Last Admin: 05/06/18 20:23 Dose: 30 ml Albuterol/Ipratropium (Duoneb 3 Mg/0.5 Mg (3 Ml) Ud) 3 ml INH RQ6 PRN PRN Reason: Shortness of Breath Last Admin: 05/05/18 07:23 Dose: 3 ml Amiodarone HCl (Cordarone) 200 mg PO TID [facility] Last Admin: 05/07/18 10:17 Dose: 200 mg Aspirin (Ecotrin) 81 mg PO DAILY [facility] Last Admin: 05/07/18 10:17 Dose: 81 mg Carvedilol (Coreg) 3.125 mg PO BID [facility] Last Admin: 05/07/18 10:18 Dose: 3.125 mg Clopidogrel Bisulfate (Plavix) 75 mg PO DAILY [facility] Last Admin: 05/07/18 10:18 Dose: 75 mg Enalapril Maleate (Vasotec) 2.5 mg PO DAILY [facility] Last Admin: 05/07/18 10:18 Dose: 2.5 mg Enoxaparin Sodium (Lovenox) 40 mg SC DAILY [facility] Last Admin: 05/07/18 10:18 Dose: 40 mg Famotidine (Pepcid) 20 mg PO DAILY [facility] Last Admin: 05/07/18 10:17 Dose: 20 mg Furosemide (Lasix) 40 mg IVP DAILY [facility] Last Admin: 05/07/18 10:19 Dose: 40 mg Simethicone (Mylicon Chew Tab) 80 mg PO QID PRN PRN Reason: GI distress Last Admin: 05/07/18 10:18 Dose: 80 mg - Labs Labs: 05/04/18 07:41 05/04/18 07:41 - Constitutional Appears: No Acute Distress, Chronically Ill - Head Exam Head Exam: ATRAUMATIC, NORMOCEPHALIC - Eye Exam Eye Exam: EOMI, Normal appearance - ENT Exam ENT Exam: Mucous Membranes Moist - Neck Exam Neck Exam: Normal Inspection - Respiratory Exam Respiratory Exam: Decreased Breath Sounds. absent: Wheezes, Respiratory Distress - Cardiovascular Exam Cardiovascular Exam: Irregular Rhythm, +S1, +S2 - GI/Abdominal Exam GI & Abdominal Exam: Soft. absent: Tenderness - Rectal Exam Rectal Exam: Deferred - Extremities Exam Extremities Exam: absent: Calf Tenderness, Pedal Edema - Back Exam Back Exam: absent: CVA tenderness (L), CVA tenderness (R) - Neurological Exam Neurological Exam: Alert, Awake, CN II-XII Intact, Normal Gait, Oriented x3 - Psychiatric Exam Psychiatric exam: Normal Affect - Skin Skin Exam: absent: Rash Assessment and Plan (1) COPD exacerbation Status: Acute (2) CHF exacerbation Status: Chronic (3) Acute chest pain Status: Acute (4) Pleural effusion Status: Acute (5) Anemia Status: Chronic (6) Atrial fibrillation Status: Chronic (7) CAD (coronary artery disease) Status: Chronic (8) Coumadin toxicity Status: Resolved - Assessment and Plan (Free Text) Assessment: RESP STATUS NO SIG CHANGE., CONT NEB BD., MONITOR O2 SAT. CXR REVIEWED. FOR CARDIO EVAL. INCREASE PEPCID BID. PROG GUARDED., DISCUSSED WITH STAFF AT LENGTH.
[2018-05-07] MEDS: Aluminum Hydroxide/Magnesium Hydroxide Susp (30 mL) PO PRN (13:14)
[2018-05-07] MEDS: Albuterol-Ipratrop 3 mg / 0.5 (3 ml) UD INH SCH ×2 (19:12)
--- NOTE | 2018-05-07 23:49 | CP.PCM.CON ---
History of Present Illness - History of Present Illness History of Present Illness: 67 years old male complaining of episodes of vague chest pain and shortness of breath on and off for the past few days. He is known to have an ischemis cardfiomyopathy, He underwent a CABG x 3 3 years ago a [facility], and a permanent pacemaker insertion 6 months ago at [facility]. A coronary angiogram last revealed patent all coronary grafts, and recent echocardiogram disclosed an LVEF 45 % with diastolic dysfunction. He also has a COPD, and he quit cigarette smoking many years ago. On admission, a CXR showed COPD and mild venous congestion, An ECG revealed an atrial pacing rhythm with ST -T wave change suggesting renee-lateral ischemia, Serum TNI is normal. Pro-BNP was 1430. Review of Systems - Cardiovascular Cardiovascular: Chest Pain, Dyspnea - Respiratory Respiratory: Dyspnea Past Patient History - Infectious Disease Hx of Infectious Diseases: None - Past Medical History & Family History Past Medical History?: Yes - Past Social History Smoking Status: Former Smoker Alcohol: None Drugs: Denies Home Situation {Lives}: Alone - CARDIAC Hx Cardiac Disorders: Yes Hx Atrial Fibrillation: Yes Hx Cardia Arrhythmia: Yes Hx Congestive Heart Failure: Yes Hx Hypercholesterolemia: Yes Hx Hypertension: Yes Hx Pacemaker: Yes - PULMONARY Hx Respiratory Disorders: Yes Hx Asthma: Yes Hx Bronchitis: Yes Hx Chronic Obstructive Pulmonary Disease (COPD): Yes Hx Emphysema: Yes - NEUROLOGICAL Hx Neurological Disorder: Yes Hx Seizures: Yes - HEENT Hx HEENT Problems: No - RENAL Hx Chronic Kidney Disease: No - ENDOCRINE/METABOLIC Hx Endocrine Disorders: No - HEMATOLOGICAL/ONCOLOGICAL Hx Blood Disorders: Yes Hx Anemia: Yes - INTEGUMENTARY Hx Dermatological Problems: No - MUSCULOSKELETAL/RHEUMATOLOGICAL Hx Musculoskeletal Disorders: No Hx Falls: No - GASTROINTESTINAL Hx Gastrointestinal Disorders: No - GENITOURINARY/GYNECOLOGICAL Hx Genitourinary Disorders: No Hx Sexually Transmitted Disorders: No - PSYCHIATRIC Hx Psychophysiologic Disorder: No Hx Substance Use: No - SURGICAL HISTORY Hx Surgeries: Yes Hx Coronary Artery Bypass Graft: Yes (x3) Hx Coronary Stent: Yes (x3) - ANESTHESIA Hx Anesthesia: Yes Hx Anesthesia Reactions: No Hx Malignant Hyperthermia: No Meds Allergies/Adverse Reactions: Allergies Allergy/AdvReac Type Severity Reaction Status Date / Time No Known Allergies Allergy Verified 05/04/18 07:14 - Medications Medications: Current Medications Al Hydrox/Mg Hydrox/Simethicone (Maalox 30 Ml) 30 ml PO Q6 PRN PRN Reason: stomach upset Last Admin: 05/07/18 13:14 Dose: 30 ml Albuterol/Ipratropium (Duoneb 3 Mg/0.5 Mg (3 Ml) Ud) 3 ml INH RQ6 [facility] Last Admin: 05/07/18 19:12 Dose: 3 ml Amiodarone HCl (Cordarone) 200 mg PO TID [facility] Last Admin: 05/07/18 20:30 Dose: Not Given Aspirin (Ecotrin) 81 mg PO DAILY [facility] Last Admin: 05/07/18 10:17 Dose: 81 mg Carvedilol (Coreg) 3.125 mg PO BID [facility] Last Admin: 05/07/18 20:31 Dose: Not Given Clopidogrel Bisulfate (Plavix) 75 mg PO DAILY [facility] Last Admin: 05/07/18 10:18 Dose: 75 mg Enoxaparin Sodium (Lovenox) 40 mg SC DAILY [facility] Last Admin: 05/07/18 10:18 Dose: 40 mg Famotidine (Pepcid) 20 mg PO BID [facility] Last Admin: 05/07/18 20:31 Dose: 20 mg Simethicone (Mylicon Chew Tab) 80 mg PO QID PRN PRN Reason: GI distress Last Admin: 05/07/18 10:18 Dose: 80 mg Physical Exam - Constitutional Appears: No Acute Distress, Chronically Ill - Head Exam Head Exam: NORMAL INSPECTION - Eye Exam Eye Exam: Normal appearance - ENT Exam ENT Exam: Normal Exam - Neck Exam Neck exam: Positive for: Normal Inspection - Respiratory Exam Respiratory Exam: Rales, Rhonchi Additional comments: Rales and rhonchi heard at both bases. - Cardiovascular Exam Cardiovascular Exam: REGULAR RHYTHM - GI/Abdominal Exam GI & Abdominal Exam: Normal Bowel Sounds, Soft - Rectal Exam Rectal Exam: Deferred - Exam Exam: NORMAL INSPECTION - Extremities Exam Extremities exam: Positive for: normal inspection - Back Exam Back exam: NORMAL INSPECTION - Neurological Exam Neurological exam: Alert, Oriented x3 - Psychiatric Exam Psychiatric exam: Anxious - Skin Skin Exam: Dry, Intact, Warm Results - Vital Signs Recent Vital Signs: Last Vital Signs Temp 97.5 F L 05/07/18 15:51 Pulse 61 05/07/18 16:00 Resp 20 05/07/18 15:51 BP 89/54 L 05/07/18 15:51 Pulse Ox 98 05/07/18 15:51 - Labs Result Diagrams: 05/04/18 07:41 05/04/18 07:41 Assessment & Plan (1) COPD exacerbation Assessment and Plan: As per Dr Eddy. Status: Acute (2) Acute on chronic heart failure Assessment and Plan: To continue Amiodarne, Carvedilol, Will add Diuretics and ARB. Status: Acute (3) Acute chest pain Assessment and Plan: So far TNI is normal. and the patient has no more chest pain now. Status: Acute
[2018-05-08] MEDS: Albuterol-Ipratrop 3 mg / 0.5 (3 ml) UD INH SCH ×2 (01:05→08:06)
--- NOTE | 2018-05-08 07:09 | CARD ---
APPROVED REPORT Date of service: 05/04/2018 EKG Measurement Heart [id number] 270P [id number] <Conclusion> Atrial-paced rhythm with prolonged AV conduction Possible Inferior infarct, age undetermined ST & T wave abnormality, consider anterolateral ischemia Abnormal ECG
[2018-05-08 08:49] VITALS: RESP 18; TEMP 97.4
[2018-05-08] MEDS: Enoxaparin 40 mg Syringe SC SCH (09:16)
--- NOTE | 2018-05-08 10:13 | CP.PCM.PN ---
Subjective - Date & Time of Evaluation Date of Evaluation: 05/08/18 Time of Evaluation: 10:10 - Subjective Subjective: COVERING DR Juve VALENCIA PT ALERT, NO CP. +OCHOA., WEAK, AMBULATING WITH PT. ROS; OTHERWISE NEG. Objective - Vital Signs/Intake and Output Vital Signs (last 24 hours): Temp Pulse Resp BP Pulse Ox 97.4 F L 62 18 103/63 98 05/08/18 07:30 05/08/18 07:30 05/08/18 07:30 05/08/18 07:30 05/08/18 07:30 Intake and Output: 05/08/18 05/08/18 06:59 18:59 Intake Total 180 Balance 180 - Medications Medications: Current Medications Al Hydrox/Mg Hydrox/Simethicone (Maalox 30 Ml) 30 ml PO Q6 PRN PRN Reason: stomach upset Last Admin: 05/07/18 13:14 Dose: 30 ml Albuterol/Ipratropium (Duoneb 3 Mg/0.5 Mg (3 Ml) Ud) 3 ml INH RQ6 [facility] Last Admin: 05/08/18 08:06 Dose: 3 ml Amiodarone HCl (Cordarone) 200 mg PO TID [facility] Last Admin: 05/08/18 09:16 Dose: 200 mg Aspirin (Ecotrin) 81 mg PO DAILY [facility] Last Admin: 05/08/18 09:16 Dose: 81 mg Clopidogrel Bisulfate (Plavix) 75 mg PO DAILY [facility] Last Admin: 05/08/18 09:16 Dose: 75 mg Enoxaparin Sodium (Lovenox) 40 mg SC DAILY [facility] Last Admin: 05/08/18 09:16 Dose: 40 mg Famotidine (Pepcid) 20 mg PO BID [facility] Last Admin: 05/08/18 09:16 Dose: 20 mg Lisinopril (Zestril) 5 mg PO DAILY [facility] Last Admin: 05/08/18 09:17 Dose: Not Given Simethicone (Mylicon Chew Tab) 80 mg PO QID PRN PRN Reason: GI distress Last Admin: 05/07/18 10:18 Dose: 80 mg - Labs Labs: 05/04/18 07:41 05/04/18 07:41 - Constitutional Appears: No Acute Distress, Chronically Ill - Head Exam Head Exam: ATRAUMATIC, NORMOCEPHALIC - Eye Exam Eye Exam: EOMI, Normal appearance - ENT Exam ENT Exam: Mucous Membranes Moist - Neck Exam Neck Exam: Normal Inspection - Respiratory Exam Respiratory Exam: Decreased Breath Sounds. absent: Wheezes, Respiratory Distress - Cardiovascular Exam Cardiovascular Exam: Irregular Rhythm, +S1, +S2 - GI/Abdominal Exam GI & Abdominal Exam: Soft. absent: Tenderness - Rectal Exam Rectal Exam: Deferred - Extremities Exam Extremities Exam: absent: Calf Tenderness, Pedal Edema - Back Exam Back Exam: absent: CVA tenderness (L), CVA tenderness (R) - Neurological Exam Neurological Exam: Alert, Awake, CN II-XII Intact, Oriented x3 - Psychiatric Exam Psychiatric exam: Normal Mood - Skin Skin Exam: absent: Rash Assessment and Plan (1) COPD exacerbation Status: Acute (2) CHF exacerbation Status: Chronic (3) Acute chest pain Status: Acute (4) Pleural effusion Status: Acute (5) Anemia Status: Chronic (6) Atrial fibrillation Status: Chronic (7) CAD (coronary artery disease) Status: Chronic - Assessment and Plan (Free Text) Assessment: RESP STATUS IMPROVING, CONT NEB BD., MONITOR O2 SAT. CARDIO EVAL APPRECIATED. CXR REVIEWED. DIURESIS TOLERATED. CONT PT. PROG GUARDED., DISCUSSED WITH STAFF.
[2018-05-08 11:31] VITALS: BP 113/65; PULSE 67; O2SAT 99
--- NOTE | 2018-05-08 16:17 | PCM.HF ---
Heart Failure Core Measure - Heart Failure Ejection Fraction: 40 % or Greater (EF 40-45%) YRIS Inhibitor Prescribed: No Contraindication/Reason for not providing: low BP Beta-Phong Prescribed: Carvedilol Angiotensin II Receptor Phong Prescribed: No Contraindication/Reason for not providing: low BP AnticoagulationTherapy for Atrial Fibrillation/Atrialflutter: No Contraindication/Reason for not providing: RATE CONTROLLED Aldosterone Antagonist Prescribed: No Contraindication/Reason for not providing: EF >40% Hydralazine Nitrate Prescribed: No Contraindication/Reason for not providing: on amiodarone Implantable Cardioverter Defibrillator Therapy: Yes Cardiac Resynchronization Therapy Prescribed: No Contraindication/Reason for not providing: not indicated - Follow up Will be discharged to: Home Follow Up Date (must be within 7 days from discharge): 05/14/18 Follow Up Time: 09:00
--- NOTE | 2018-05-08 16:22 | CP.PCM.PN ---
Subjective - Date & Time of Evaluation Date of Evaluation: 05/08/18 Time of Evaluation: 11:00 - Subjective Subjective: awake, alert, ambulatory, no distress. Objective - Vital Signs/Intake and Output Vital Signs (last 24 hours): Temp Pulse Resp BP Pulse Ox 97.4 F L 67 18 113/65 99 05/08/18 07:30 05/08/18 11:17 05/08/18 07:30 05/08/18 11:17 05/08/18 11:17 Intake and Output: 05/08/18 05/08/18 06:59 18:59 Intake Total 180 Balance 180 - Labs Labs: 05/04/18 07:41 05/04/18 07:41 Assessment and Plan - Assessment and Plan (Free Text) Assessment: Patient admitted with COPD exacerbation, seen and examined. Alert and orientedx3 , ambulates with a walker. No wheezing, sob or chest pains. Discussed with DR Eddy, plan to discharge home today. Advised to follow up with PMD in 1 week. Patient was given 3 month supply of his meds last month as per case management rn. Advised to discontinue lisinopril and lasix secondary to low blood pressure.
--- NOTE | 2018-05-10 18:56 | PQF ---
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 Please document the type and acuity (in cludes probable or suspected) Such as: Type: -- Systolic -- Diastolic -- Combined -- Other, please specify Acuity: -- Acute -- Chronic -- Acute on chronic -- Other, please specify Also please document the underlying cause of the CHF (includes probable or suspected) The patient's Clinical Indicators include: ?67 y/o male presents to ED with c/o sob and chest tightness intermittently "for few days". Patient w as recently admitted to hospital on 04/25/18 until 05/10 for CHF and COPD?. By preview admition: Acute on chronic Combine CHF. BNP: 1750. ECHO from 04/13/2018: The Left Ventricle is mildly dilated. Left ventricle systolic function is mildly impaired. The Ejection Fraction is 40-45%. The left atrium is moderately dilated. Mitral regurgitation is mild. Rx:Furosemide 40 mg IVP DAILY Please consider document Acute on chronic Combine (Systolic and Diastolic) CHF, if Agree, Or consider document one of the following for Specification. Query created by: Basil Kern on 05/07/2018 10:21 AM Electronically signed by: Caitlin PAUL 05/10/2018 6:53 PM
== END 2018-05-08 14:20 | disposition home or self-care (01) | DRG 190 ==
LOC: C.ER 07:11 → C.9E 11:49 → C.6T 12:47
PROVIDERS: ADMIT Internal Medicine Nephrology; ATTEND Internal Medicine Nephrology
DX: J44.1 Chronic obstructive pulmonary disease with (acute) exacerbation (principal); I50.33 Acute on chronic diastolic (congestive) heart failure; I11.0 Hypertensive heart disease with heart failure; I50.9 Heart failure, unspecified; I25.5 Ischemic cardiomyopathy; I48.91 Unspecified atrial fibrillation; I25.10 Atherosclerotic heart disease of native coronary artery without angina pectoris; D64.9 Anemia, unspecified; E78.00 Pure hypercholesterolemia, unspecified; Z87.891 Personal history of nicotine dependence; Z95.0 Presence of cardiac pacemaker; Z95.1 Presence of aortocoronary bypass graft; Z95.5 Presence of coronary angioplasty implant and graft

== ENCOUNTER 2018-05-14 07:45 | Observation (INO) | payer MEDICARE ==
[2018-05-14 07:50] VITALS: BMI 21.6
--- NOTE | 2018-05-14 08:32 | C.PDOC ---
History Of Present Illness 67 year male with PMHx of COPD and CHF presents to the ED c/o worsening SOB. Patient reports he had 2 heart surgeries, pacemaker and 3 bypass done. Patient reports he is not able to sleep due to his SOB. Patient denies CP, nausea, vomit , diarrhea, abdominal pain, weakness, numbness. Time Seen by Provider: 05/14/18 07:58 Chief Complaint (Nursing): Shortness Of Breath History Per: Patient History/Exam Limitations: no limitations Onset/Duration Of Symptoms: Days Current Symptoms Are (Timing): Still Present Initiating Event: Upper Respiratory Illness Quality: "Pain" Exacerbating Factor(s): Laying Flat Current Respiratory Medications: See Home Med List Recent travel outside of the [place]: No Additional History Per: Patient Past Medical History Reviewed: Historical Data, Nursing Documentation, Vital Signs Vital Signs: Last Vital Signs Temp 97.1 F L 05/14/18 08:07 Pulse 71 05/14/18 07:50 Resp 22 05/14/18 07:50 BP 118/73 05/14/18 07:50 Pulse Ox 99 05/14/18 08:35 - Medical History PMH: Anemia, Asthma, Atrial Fibrillation, Bronchitis, CAD, Cardia Arrhythmia, CHF, COPD, Emphysema, HTN, Hypercholesterolemia, Malignancy (right lung mass), Seizures Denies: Chronic Kidney Disease, Sexually Transmitted Disease Surgical History: CABG (x3), Coronary Stent (x3), Pacemaker - [facility] Procedures FLUOROSCOPY OF LEFT HEART USING OTHER CONTRAST (01/22/17) INSERT PACE. DUAL JOHN IN CHEST SUBCU/FASCIA, OPEN (02/17/17) INSERTION OF PACEMAKER LEAD INTO R VENTRICLE, PERC APPROACH (02/17/17) INSERTION OF PACEMAKER LEAD INTO RIGHT ATRIUM, PERC APPROACH (02/17/17) INTRODUCTION OF SERUM/TOX/VACCINE INTO MUSCLE, PERC APPROACH (01/22/17) MEASURE OF CARDIAC SAMPL & PRESSURE, L HEART, PERC APPROACH (01/22/17) Family History: States: Unknown Family Hx - Social History Hx Alcohol Use: No Hx Substance Use: No - Immunization History Hx Tetanus Toxoid Vaccination: No Hx Influenza Vaccination: No Hx Pneumococcal Vaccination: No Review Of Systems Constitutional: Negative for: Fever, Chills Cardiovascular: Negative for: Chest Pain Respiratory: Positive for: Shortness of Breath Gastrointestinal: Negative for: Nausea, Vomiting Skin: Negative for: Rash Neurological: Negative for: Weakness, Numbness Physical Exam - Physical Exam Appears: Non-toxic, No Acute Distress Skin: Normal Color, Warm, Dry Head: Atraumatic, Normacephalic Eye(s): bilateral: Normal Inspection Oral Mucosa: Moist Neck: Normal ROM, Supple Chest: Symmetrical Cardiovascular: Rhythm Regular, No Murmur Respiratory: Normal Breath Sounds, No Rales, No Rhonchi, No Wheezing Gastrointestinal/Abdominal: Soft, No Tenderness, No Guarding, No Rebound Extremity: Normal ROM, No Tenderness, No Swelling Neurological/Psych: Oriented x3, Normal Speech Gait: Steady ED Course And Treatment - Laboratory Results Result Diagrams: 05/14/18 08:47 05/14/18 08:47 ECG: Interpreted By Me, Viewed By Me ECG Rhythm: A Paced Rate From EC (BPM) O2 Sat by Pulse Oximetry: 99 (ON RA) Pulse Ox Interpretation: Normal Medical Decision Making Medical Decision Making: Impression: SOB Plan: * EKG * LAbs * CXR * Blood culture * UA patient with copd/chf and will admit to tele observation s/o Dr. Viktor varela Disposition Discussed With : Caitlin Varela Doctor Will See Patient In The: Hospital Counseled Patient/Family Regarding: Studies Performed, Diagnosis - Disposition Disposition: HOSPITALIZED Disposition Time: 09:25 Condition: FAIR Forms: [facility] ([employer]) - Clinical Impression Clinical Impression: COPD exacerbation, Dyspnea - Scribe Statement The provider has reviewed the documentation as recorded by the Scribe Mirza Bell All medical record entries made by the Scribe were at my direction and personally dictated by me. I have reviewed the chart and agree that the record accurately reflects my personal performance of the history, physical exam, medical decision making, and the department course for this patient. I have also personally directed, reviewed, and agree with the discharge instructions and disposition.
[2018-05-14 08:53] LABS: BASO # 0.1 K/uL (0.0-0.2); EOS # 0.6 K/uL (0.0-0.7); MONO # 0.4 K/uL (0.0-0.8); NEUT # 1.9 K/uL (1.8-7.0); RED CELL DISTRIBUTION WIDTH 16.2 % (11.5-14.5); WHITE BLOOD COUNT 3.8 K/uL (4.8-10.8)
[2018-05-14 08:59] LABS: BASO % 2.9 % (0.0-2.0); EOS % 17.1 % (0.0-4.0); LYMPH # 0.7 K/uL (1.0-4.3); LYMPH % 19.8 % (20.0-40.0); MEAN CELL VOLUME 88.8 fL (80.0-94.0); MEAN CORPUSCULAR HEMOGLOBIN 30.7 pg (27.0-31.0); MEAN CORPUSCULAR HGB CONC 34.6 g/dL (33.0-37.0); MEAN PLATELET VOLUME 6.7 fL (7.2-11.7); MONO % 10.7 % (0.0-10.0); NEUT % 49.5 % (50.0-75.0); RBC 3.55 Mil/uL (4.40-5.90)
[2018-05-14 09:01] LABS: HEMOGLOBIN 10.9 g/dL (12.0-18.0)
[2018-05-14 09:02] LABS: PROTHROMBIN TIME 10.6 SECONDS (9.7-12.2)
--- NOTE | 2018-05-14 09:02 | RAD ---
Date of service: 05/14/2018 PROCEDURE: CHEST RADIOGRAPH, 1 VIEW HISTORY: SOB COMPARISON: 05/04/2018. FINDINGS: LUNGS: The lungs are well inflated and clear. PLEURA: No pneumothorax or pleural fluid seen. CARDIOVASCULAR: There is mild cardiomegaly. Status post CABG. There is stable position of left-sided pacemaker. OSSEOUS STRUCTURES: No significant abnormalities. VISUALIZED UPPER ABDOMEN: Normal. OTHER FINDINGS: None. IMPRESSION: No active pulmonary disease.
[2018-05-14 09:09] LABS: ALB/GLOB RATIO 1.4 (1.0-2.1); ALBUMIN 3.6 g/dL (3.5-5.0); ALT/SGPT 56 U/L (21-72); AST/SGOT 41 U/L (17-59); BLOOD UREA NITROGEN 23 mg/dL (9-20); GFR AFRICAN-AMERICAN > 60; GFR NON-AFRICAN AMERICAN > 60
[2018-05-14] MEDS ORDERED: MethylPREDNISolone 40 mg Vial IVP STA (09:16)
[2018-05-14] MEDS ORDERED: Albuterol-Ipratrop 3 mg / 0.5 (3 ml) UD INH STA (09:16)
[2018-05-14 09:19] LABS: B-TYPE NATRIURETIC PEPTIDE 810 pg/mL (0-900)
[2018-05-14 09:30] LABS: URINE BILIRUBIN NEGATIVE (NEGATIVE); URINE BLOOD NEGATIVE (NEGATIVE); URINE CLARITY Hazy (Clear); URINE COLOR Yellow (YELLOW); URINE GLUCOSE (UA) NORMAL (Normal); URINE LEUKOCYTE ESTERASE NEG Leu/uL (Negative); URINE PROTEIN NEGATIVE (NEGATIVE); URINE UROBILINOGEN NORMAL mg/dL (0.2-1.0)
[2018-05-14] MEDS ORDERED: Albuterol-Ipratrop 3 mg / 0.5 (3 ml) UD ONE (09:35)
[2018-05-14] MEDS ORDERED: MethylPREDNISolone 40 mg Vial ONE (09:35)
[2018-05-14 11:43] VITALS: RESP 20
[2018-05-14] MEDS ORDERED: Albuterol HFA 90 mcg/actuation (8 g) IH PRN (16:38)
[2018-05-14] MEDS ORDERED: Albuterol-Ipratrop 3 mg / 0.5 (3 ml) UD INH PRN (16:38)
--- NOTE | 2018-05-14 17:40 | CP.PCM.CON ---
History of Present Illness - History of Present Illness History of Present Illness: reason for consultation: shortness of breath 67yM with pmhx of COPD, HTN, HLD, CAD s/p CABG, PPM presenting to ER with complaints of SOB.Patient was recently discharged from the hospital. He has had multiple admissions for CHF and chest pain. Patient has a CABG and a cardiac cath done in 2017 showed patent grafts patient had an echo done last year which showed mild LV dysfunction with EF of 45%.denies cough, denies fever or chills, denies chest pain. ROS: A 12pt ROS was negative except as above PmHx: As stated above PsHx: CABG, PPM FHx: Neg for colon cancer SHx: Denies current etoh, tobacco, drugs Review of Systems - Review of Systems All systems: reviewed and no additional remarkable complaints except (Shortness of breath) Past Patient History - Infectious Disease Hx of Infectious Diseases: None - Past Medical History & Family History Past Medical History?: Yes - Past Social History Smoking Status: Former Smoker - CARDIAC Hx Atrial Fibrillation: Yes Hx Cardia Arrhythmia: Yes Hx Congestive Heart Failure: Yes Hx Hypercholesterolemia: Yes Hx Hypertension: Yes Hx Pacemaker: Yes - PULMONARY Hx Asthma: Yes Hx Bronchitis: Yes Hx Chronic Obstructive Pulmonary Disease (COPD): Yes Hx Emphysema: Yes - NEUROLOGICAL Hx Seizures: Yes - HEENT Hx HEENT Problems: No - RENAL Hx Chronic Kidney Disease: No - ENDOCRINE/METABOLIC Hx Endocrine Disorders: No - HEMATOLOGICAL/ONCOLOGICAL Hx Anemia: Yes - INTEGUMENTARY Hx Dermatological Problems: No - MUSCULOSKELETAL/RHEUMATOLOGICAL Hx Musculoskeletal Disorders: No Hx Falls: No - GASTROINTESTINAL Hx Gastrointestinal Disorders: No - GENITOURINARY/GYNECOLOGICAL Hx Sexually Transmitted Disorders: No - PSYCHIATRIC Hx Substance Use: No - SURGICAL HISTORY Hx Coronary Artery Bypass Graft: Yes (x3) Hx Coronary Stent: Yes (x3) - ANESTHESIA Hx Anesthesia: Yes Hx Anesthesia Reactions: No Hx Malignant Hyperthermia: No Meds Allergies/Adverse Reactions: Allergies Allergy/AdvReac Type Severity Reaction Status Date / Time No Known Allergies Allergy Verified 05/14/18 07:49 - Medications Medications: Current Medications Albuterol (Ventolin Hfa 90 Mcg/Actuation (8 G)) 1 puff IH RQID PRN PRN Reason: Wheezing Albuterol/Ipratropium (Duoneb 3 Mg/0.5 Mg (3 Ml) Ud) 3 ml INH RQ6 PRN PRN Reason: Shortness of Breath Amiodarone HCl (Cordarone) 200 mg PO TID [facility] Last Admin: 05/14/18 17:33 Dose: 200 mg Aspirin (Ecotrin) 81 mg PO DAILY [facility] Carvedilol (Coreg) 3.125 mg PO BID [facility] Last Admin: 05/14/18 17:13 Dose: Not Given Clopidogrel Bisulfate (Plavix) 75 mg PO DAILY [facility] Famotidine (Pepcid) 20 mg PO BID [facility] Last Admin: 05/14/18 17:33 Dose: 20 mg Furosemide (Lasix) 40 mg IVP DAILY [facility] Azithromycin 500 mg/ Sodium (Chloride) 250 mls @ 250 mls/hr IVPB Q24H [facility] PRN Reason: Protocol Ceftriaxone Sodium 1 gm/ (Sodium Chloride) 100 mls @ 100 mls/hr IVPB Q24H [facility] PRN Reason: Protocol Pneumococcal Polyvalent Vaccine (Pneumovax 23 Vaccine) 0.5 ml IM .ONCE ONE Stop: 05/15/18 10:01 Physical Exam - Head Exam Head Exam: ATRAUMATIC, NORMOCEPHALIC - ENT Exam ENT Exam: Mucous Membranes Moist - Respiratory Exam Respiratory Exam: Decreased Breath Sounds - GI/Abdominal Exam GI & Abdominal Exam: Normal Bowel Sounds, Soft - Extremities Exam Extremities exam: Positive for: normal inspection Results - Vital Signs Recent Vital Signs: Last Vital Signs Temp 98.0 F 05/14/18 15:05 Pulse 65 05/14/18 16:25 Resp 20 05/14/18 15:05 BP 110/63 05/14/18 15:05 Pulse Ox 99 05/14/18 16:25 - Labs Result Diagrams: 05/14/18 08:47 05/14/18 08:47 Labs: Laboratory Results - last 24 hr 05/14/18 05/14/18 05/14/18 08:47 08:47 08:47 WBC 3.8 L RBC 3.55 L Hgb 10.9 L D Hct 31.6 L MCV 88.8 MCH 30.7 MCHC 34.6 RDW 16.2 H Plt Count 144 MPV 6.7 L Neut % (Auto) 49.5 L Lymph % (Auto) 19.8 L [place] % (Auto) 10.7 H Eos % (Auto) 17.1 H Baso % (Auto) 2.9 H Neut # (Auto) 1.9 Lymph # (Auto) 0.7 L [place] # (Auto) 0.4 Eos # (Auto) 0.6 Baso # (Auto) 0.1 PT 10.6 INR 1.0 APTT 35 H Sodium 136 Potassium 3.6 Chloride 99 Carbon Dioxide 28 Anion Gap 12 BUN 23 H Creatinine 1.2 Est GFR ( Amer) > 60 Est GFR (Non-Af Amer) > 60 Random Glucose 87 Calcium 9.0 Total Bilirubin 0.6 AST 41 ALT 56 Alkaline Phosphatase 72 Troponin I < 0.0120 NT-Pro-B Natriuret Pep 810 Total Protein 6.2 L Albumin 3.6 Globulin 2.6 Albumin/Globulin Ratio 1.4 Urine Color Urine Clarity Urine pH Ur Specific [place] Urine Protein Urine Glucose (UA) Urine Ketones Urine Blood Urine Nitrate Urine Bilirubin Urine Urobilinogen Ur Leukocyte Esterase 05/14/18 08:52 WBC RBC Hgb Hct MCV MCH MCHC RDW Plt Count MPV Neut % (Auto) Lymph % (Auto) [place] % (Auto) Eos % (Auto) Baso % (Auto) Neut # (Auto) Lymph # (Auto) [place] # (Auto) Eos # (Auto) Baso # (Auto) PT INR APTT Sodium Potassium Chloride Carbon Dioxide Anion Gap BUN Creatinine Est GFR ( Amer) Est GFR (Non-Af Amer) Random Glucose Calcium Total Bilirubin AST ALT Alkaline Phosphatase Troponin I NT-Pro-B Natriuret Pep Total Protein Albumin Globulin Albumin/Globulin Ratio Urine Color Yellow Urine Clarity Hazy Urine pH 6.0 Ur Specific [place] 1.012 Urine Protein Negative Urine Glucose (UA) Normal Urine Ketones Negative Urine Blood Negative Urine Nitrate Negative Urine Bilirubin Negative Urine Urobilinogen Normal Ur Leukocyte Esterase Neg Assessment & Plan (1) COPD exacerbation Status: Acute Comment: nebulizer treatment. IV steroids. antibiotics
[2018-05-14] MEDS ORDERED: Azithromycin 500 MG in Sodium Chloride 0.9% 250 ML IVPB SCH (19:00)
--- NOTE | 2018-05-14 19:09 | CP.PCM.HP ---
Past Patient History - Infectious Disease Hx of Infectious Diseases: None - Past Medical History & Family History Past Medical History?: Yes - Past Social History Smoking Status: Former Smoker - CARDIAC Hx Atrial Fibrillation: Yes Hx Cardia Arrhythmia: Yes Hx Congestive Heart Failure: Yes Hx Hypercholesterolemia: Yes Hx Hypertension: Yes Hx Pacemaker: Yes - PULMONARY Hx Asthma: Yes Hx Bronchitis: Yes Hx Chronic Obstructive Pulmonary Disease (COPD): Yes Hx Emphysema: Yes - NEUROLOGICAL Hx Seizures: Yes - HEENT Hx HEENT Problems: No - RENAL Hx Chronic Kidney Disease: No - ENDOCRINE/METABOLIC Hx Endocrine Disorders: No - HEMATOLOGICAL/ONCOLOGICAL Hx Anemia: Yes - INTEGUMENTARY Hx Dermatological Problems: No - MUSCULOSKELETAL/RHEUMATOLOGICAL Hx Musculoskeletal Disorders: No Hx Falls: No - GASTROINTESTINAL Hx Gastrointestinal Disorders: No - GENITOURINARY/GYNECOLOGICAL Hx Sexually Transmitted Disorders: No - PSYCHIATRIC Hx Substance Use: No - SURGICAL HISTORY Hx Coronary Artery Bypass Graft: Yes (x3) Hx Coronary Stent: Yes (x3) - ANESTHESIA Hx Anesthesia: Yes Hx Anesthesia Reactions: No Hx Malignant Hyperthermia: No Meds Allergies/Adverse Reactions: Allergies Allergy/AdvReac Type Severity Reaction Status Date / Time No Known Allergies Allergy Verified 05/14/18 07:49 Physical Exam - Constitutional Appears: Well - Head Exam Head Exam: ATRAUMATIC, NORMAL INSPECTION, NORMOCEPHALIC - Eye Exam Eye Exam: EOMI, Normal appearance, PERRL Pupil Exam: NORMAL ACCOMODATION, PERRL - ENT Exam ENT Exam: Mucous Membranes Moist, Normal Exam - Neck Exam Neck exam: Positive for: Normal Inspection - Respiratory Exam Respiratory Exam: Decreased Breath Sounds - Cardiovascular Exam Cardiovascular Exam: REGULAR RHYTHM, +S1, +S2 - GI/Abdominal Exam GI & Abdominal Exam: Diminished Bowel Sounds, Soft - Rectal Exam Rectal Exam: Deferred Results - Vital Signs Recent Vital Signs: Last Vital Signs Temp 98.0 F 05/14/18 15:05 Pulse 65 05/14/18 16:25 Resp 20 05/14/18 15:05 BP 110/63 05/14/18 15:05 Pulse Ox 99 05/14/18 16:25 - Labs Result Diagrams: 05/14/18 08:47 05/14/18 08:47 Labs: Laboratory Results - last 24 hr 05/14/18 05/14/18 05/14/18 08:47 08:47 08:47 WBC 3.8 L RBC 3.55 L Hgb 10.9 L D Hct 31.6 L MCV 88.8 MCH 30.7 MCHC 34.6 RDW 16.2 H Plt Count 144 MPV 6.7 L Neut % (Auto) 49.5 L Lymph % (Auto) 19.8 L [place] % (Auto) 10.7 H Eos % (Auto) 17.1 H Baso % (Auto) 2.9 H Neut # (Auto) 1.9 Lymph # (Auto) 0.7 L [place] # (Auto) 0.4 Eos # (Auto) 0.6 Baso # (Auto) 0.1 PT 10.6 INR 1.0 APTT 35 H Sodium 136 Potassium 3.6 Chloride 99 Carbon Dioxide 28 Anion Gap 12 BUN 23 H Creatinine 1.2 Est GFR ( Amer) > 60 Est GFR (Non-Af Amer) > 60 Random Glucose 87 Calcium 9.0 Total Bilirubin 0.6 AST 41 ALT 56 Alkaline Phosphatase 72 Troponin I < 0.0120 NT-Pro-B Natriuret Pep 810 Total Protein 6.2 L Albumin 3.6 Globulin 2.6 Albumin/Globulin Ratio 1.4 Urine Color Urine Clarity Urine pH Ur Specific [place] Urine Protein Urine Glucose (UA) Urine Ketones Urine Blood Urine Nitrate Urine Bilirubin Urine Urobilinogen Ur Leukocyte Esterase 05/14/18 08:52 WBC RBC Hgb Hct MCV MCH MCHC RDW Plt Count MPV Neut % (Auto) Lymph % (Auto) [place] % (Auto) Eos % (Auto) Baso % (Auto) Neut # (Auto) Lymph # (Auto) [place] # (Auto) Eos # (Auto) Baso # (Auto) PT INR APTT Sodium Potassium Chloride Carbon Dioxide Anion Gap BUN Creatinine Est GFR ( Amer) Est GFR (Non-Af Amer) Random Glucose Calcium Total Bilirubin AST ALT Alkaline Phosphatase Troponin I NT-Pro-B Natriuret Pep Total Protein Albumin Globulin Albumin/Globulin Ratio Urine Color Yellow Urine Clarity Hazy Urine pH 6.0 Ur Specific [place] 1.012 Urine Protein Negative Urine Glucose (UA) Normal Urine Ketones Negative Urine Blood Negative Urine Nitrate Negative Urine Bilirubin Negative Urine Urobilinogen Normal Ur Leukocyte Esterase Neg
[2018-05-14 20:02] VITALS: PULSE 60
[2018-05-15 01:22] VITALS: O2SAT 96
[2018-05-15 01:51] VITALS: BP 102/64; TEMP 97.3
[2018-05-15] MEDS ORDERED: Pneumococcal 23-Valent Vaccine IM ONE (10:00)
--- NOTE | 2018-05-15 21:19 | CARD ---
APPROVED REPORT Date of service: 05/14/2018 EKG Measurement Heart [id number] <Conclusion> Atrial-paced rhythm with prolonged AV conduction Inferior infarct, age undetermined Anterior infarct, age undetermined ST & T wave abnormality, consider lateral ischemia Abnormal ECG
--- NOTE | 2018-05-15 23:39 | CP.PCM.PN ---
Subjective - Date & Time of Evaluation Date of Evaluation: 05/15/18 Objective - Vital Signs/Intake and Output Vital Signs (last 24 hours): Temp Pulse Resp BP Pulse Ox 97.3 F L 60 20 102/64 96 05/14/18 23:10 05/15/18 03:58 05/14/18 23:10 05/14/18 23:10 05/15/18 00:00 - Labs Labs: 05/14/18 08:47 05/14/18 08:47 PT 10.6 SECONDS (9.7-12.2) 05/14/18 08:47 INR 1.0 05/14/18 08:47 APTT 35 SECONDS (21-34) H 05/14/18 08:47
== END 2018-05-15 07:33 | disposition home or self-care (01) ==
LOC: C.ER 07:45 → C.9E 09:24 → C.6T 10:26
PROVIDERS: ADMIT Internal Medicine Nephrology; ATTEND Internal Medicine Nephrology
DX: J44.1 Chronic obstructive pulmonary disease with (acute) exacerbation (principal); I11.0 Hypertensive heart disease with heart failure; I50.9 Heart failure, unspecified; I25.10 Atherosclerotic heart disease of native coronary artery without angina pectoris; E78.5 Hyperlipidemia, unspecified; E78.00 Pure hypercholesterolemia, unspecified; Z87.891 Personal history of nicotine dependence; I48.91 Unspecified atrial fibrillation; Z95.0 Presence of cardiac pacemaker; Z95.1 Presence of aortocoronary bypass graft; Z95.5 Presence of coronary angioplasty implant and graft
CPT/HCPCS: 71045; 80053; 81001; 83880; 84484; 85025; 85610; 85730; 87040; 93005; 96374; 99285; G0378; J0456; J0696; J2920; J7050

== ENCOUNTER 2018-05-22 16:21 | Observation (INO) | payer MEDICARE ==
[2018-05-22 16:21] VITALS: BMI 21.6
[2018-05-22 17:25] LABS: BASO # 0.1 K/uL (0.0-0.2); BASO % 2.2 % (0.0-2.0); EOS # 0.1 K/uL (0.0-0.7); EOS % 1.8 % (0.0-4.0); HEMOGLOBIN 10.8 g/dL (12.0-18.0); LYMPH # 1.5 K/uL (1.0-4.3); MEAN CORPUSCULAR HEMOGLOBIN 30.2 pg (27.0-31.0); MEAN CORPUSCULAR HGB CONC 33.9 g/dL (33.0-37.0); MEAN PLATELET VOLUME 6.3 fL (7.2-11.7); MONO # 0.6 K/uL (0.0-0.8); MONO % 10.8 % (0.0-10.0); NEUT # 3.2 K/uL (1.8-7.0); NEUT % 58.2 % (50.0-75.0); RBC 3.59 Mil/uL (4.40-5.90); RED CELL DISTRIBUTION WIDTH 16.6 % (11.5-14.5); WHITE BLOOD COUNT 5.5 K/uL (4.8-10.8)
[2018-05-22 17:44] LABS: ALB/GLOB RATIO 1.5 (1.0-2.1); ALBUMIN 4.3 g/dL (3.5-5.0); ALT/SGPT 40 U/L (21-72); AST/SGOT 34 U/L (17-59); BLOOD UREA NITROGEN 40 mg/dL (9-20); GFR AFRICAN-AMERICAN 56; GFR NON-AFRICAN AMERICAN 47
[2018-05-22 17:50] LABS: B-TYPE NATRIURETIC PEPTIDE 1720 pg/mL (0-900)
--- NOTE | 2018-05-22 17:57 | C.PDOC ---
History Of Present Illness 67yo male, with history of COPD and CHF, comes to ER with complaints of chest pain and shortness of breath for the past 2 days. Otherwise, he denies any fever , chills, weakness, known sick contacts. He offers no additional medical complaints. Time Seen by Provider: 05/22/18 17:05 Chief Complaint (Nursing): Shortness Of Breath History Per: Patient History/Exam Limitations: no limitations Onset/Duration Of Symptoms: Days (2) Associated Symptoms: denies: Nausea, Dyspnea, Diaphoresis, Syncope Past Medical History Reviewed: Historical Data, Nursing Documentation, Vital Signs Vital Signs: Last Vital Signs Temp 97.7 F 05/22/18 16:38 Pulse 63 05/22/18 16:38 Resp 22 05/22/18 17:24 BP 107/65 05/22/18 16:38 Pulse Ox 100 05/22/18 18:45 - Medical History PMH: Anemia, Asthma, Atrial Fibrillation, Bronchitis, CAD, Cardia Arrhythmia, CHF, COPD, Emphysema, HTN, Hypercholesterolemia, Malignancy (right lung mass), Seizures Denies: Chronic Kidney Disease, Sexually Transmitted Disease Surgical History: CABG (x3), Coronary Stent (x3), Pacemaker - [facility] Procedures FLUOROSCOPY OF LEFT HEART USING OTHER CONTRAST (01/22/17) INSERT PACE. DUAL JOHN IN CHEST SUBCU/FASCIA, OPEN (02/17/17) INSERTION OF PACEMAKER LEAD INTO R VENTRICLE, PERC APPROACH (02/17/17) INSERTION OF PACEMAKER LEAD INTO RIGHT ATRIUM, PERC APPROACH (02/17/17) INTRODUCTION OF SERUM/TOX/VACCINE INTO MUSCLE, PERC APPROACH (01/22/17) MEASURE OF CARDIAC SAMPL & PRESSURE, L HEART, PERC APPROACH (01/22/17) Family History: States: Unknown Family Hx - Social History Hx Alcohol Use: No Hx Substance Use: No - Immunization History Hx Tetanus Toxoid Vaccination: No Hx Influenza Vaccination: No Hx Pneumococcal Vaccination: No Review Of Systems Except As Marked, All Systems Reviewed And Found Negative. Constitutional: Negative for: Fever, Chills Cardiovascular: Positive for: Chest Pain Respiratory: Positive for: Shortness of Breath Gastrointestinal: Negative for: Vomiting, Abdominal Pain Neurological: Negative for: Weakness Physical Exam - Physical Exam Appears: Non-toxic Skin: Warm, Dry Head: Atraumatic, Normacephalic Eye(s): bilateral: Normal Inspection Oral Mucosa: Moist Neck: Normal ROM, Supple Cardiovascular: Murmur (2/6 systolic ejection murmur) Respiratory: Normal Breath Sounds, No Rales, No Rhonchi, No Wheezing Gastrointestinal/Abdominal: Normal Exam, Soft, No Tenderness Extremity: Normal ROM, No Pedal Edema Neurological/Psych: Oriented x3 Gait: Steady ED Course And Treatment - Laboratory Results Result Diagrams: 05/22/18 17:21 05/22/18 17:21 O2 Sat by Pulse Oximetry: 100 (RA) Pulse Ox Interpretation: Normal Medical Decision Making Medical Decision Making: Assessment: Chest pain, shortness of breath Plan: -- Labs -- CXR Case discussed with Dr. Juve Mendoza and patient admitted for observation. Disposition Discussed With DrEvangelina: Caitlin Mendoza Doctor Will See Patient In The: Hospital Counseled Patient/Family Regarding: Studies Performed, Diagnosis - Disposition Disposition: HOSPITALIZED Disposition Time: 17:56 Condition: FAIR - Clinical Impression Clinical Impression: Chest pain - Scribe Statement The provider has reviewed the documentation as recorded by the Victoria Chisholm Provider Attestation: All medical record entries made by the Victoria were at my direction and personally dictated by me. I have reviewed the chart and agree that the record accurately reflects my personal performance of the history, physical exam, medical decision making, and the department course for this patient. I have also personally directed, reviewed, and agree with the discharge instructions and disposition.
[2018-05-22] MEDS ORDERED: Albuterol-Ipratrop 3 mg / 0.5 (3 ml) UD INH PRN (22:08)
[2018-05-22] MEDS ORDERED: Azithromycin 500mg/250ML NS 500 MG/250 ML BAG IVPB SCH (22:30)
[2018-05-22] MEDS: MethylPREDNISolone 40 mg Vial IVP SCH (22:59)
[2018-05-23] MEDS: Albuterol-Ipratrop 3 mg / 0.5 (3 ml) UD INH SCH ×4 (01:11→19:05)
[2018-05-23] MEDS: MethylPREDNISolone 40 mg Vial IVP SCH ×3 (07:35→21:41)
--- NOTE | 2018-05-23 08:03 | RAD ---
Date of service: 05/22/2018 PROCEDURE: CHEST RADIOGRAPH, 1 VIEW HISTORY: SOB COMPARISON: Comparison is made with 05/14/2018 FINDINGS: LUNGS: No evidence of new infiltrate or consolidation in the lungs P PLEURA: Blunting of the left costophrenic angle suspicious for small pleural effusion or pleural thickening. CARDIOVASCULAR: The cardiac silhouette is upper normal in size. There is left-sided pacemaker seen in place. Post cardiac surgery and sternotomy changes are again noted P OSSEOUS STRUCTURES: No significant abnormalities. VISUALIZED UPPER ABDOMEN: Normal. OTHER FINDINGS: None. IMPRESSION: Blunting of the left costophrenic angle could be due to small pleural effusion. Otherwise no interval change.
[2018-05-23] MEDS: Enoxaparin 40 mg Syringe SC SCH (09:37)
--- NOTE | 2018-05-23 10:08 | CP.PCM.PN ---
Subjective - Date & Time of Evaluation Date of Evaluation: 05/23/18 Time of Evaluation: 10:06 - Subjective Subjective: PGY [address] Juve Mendoza 67 year old male with past medical history of CAD s/p CABG, HTN, HLD, COPD and CHF with permanent pacemaker placement presented to hospital for chest pain and shortness of breath ongoing for 3 days. Patient has had multiple admissions in recent past for CHF exacerbation with chest pain. Pro BNP on admission was elevated at 1700. Initial troponins were negative. Pt seen and examined at bedside. No acute events overnight. Currently pt denies having any CP, SOB, abd pain, N/V/D/C, F/C. PMHx: Stated above Sx: CABG and pacemaker placement Social: denies current tobacco etoh or drug use Objective - Vital Signs/Intake and Output Vital Signs (last 24 hours): Temp Pulse Resp BP Pulse Ox 97.5 F L 62 18 93/53 L 100 05/23/18 07:00 05/23/18 08:10 05/23/18 07:00 05/23/18 09:38 05/23/18 07:00 - Medications Medications: Current Medications Albuterol/Ipratropium (Duoneb 3 Mg/0.5 Mg (3 Ml) Ud) 3 ml INH RQ6 [facility] Last Admin: 05/23/18 07:20 Dose: 3 ml Amiodarone HCl (Cordarone) 200 mg PO TID [facility] Last Admin: 05/23/18 09:38 Dose: Not Given Aspirin (Ecotrin) 81 mg PO DAILY [facility] Last Admin: 05/23/18 09:38 Dose: 81 mg Carvedilol (Coreg) 3.125 mg PO BID [facility] Last Admin: 05/23/18 09:38 Dose: Not Given Clopidogrel Bisulfate (Plavix) 75 mg PO DAILY [facility] Last Admin: 05/23/18 09:36 Dose: 75 mg Enoxaparin Sodium (Lovenox) 40 mg SC DAILY [facility] Last Admin: 05/23/18 09:37 Dose: 40 mg Famotidine (Pepcid) 20 mg PO BID [facility] Last Admin: 05/23/18 09:38 Dose: 20 mg Furosemide (Lasix) 40 mg IVP DAILY [facility] Last Admin: 05/23/18 09:38 Dose: Not Given Azithromycin (Zithromax 500mg In Ns Addvantage) 500 mg in 250 mls @ 167 mls/hr IVPB Q24H [facility] PRN Reason: Protocol Stop: 05/25/18 00:00 Last Admin: 05/22/18 23:00 Dose: 167 mls/hr Methylprednisolone (Solu-Medrol) 40 mg IVP Q8H [facility] Last Admin: 05/23/18 07:35 Dose: 40 mg - Labs Labs: 05/22/18 17:21 05/22/18 17:21 - Constitutional Appears: Non-toxic, In Acute Distress - Head Exam Head Exam: ATRAUMATIC, NORMOCEPHALIC - ENT Exam ENT Exam: Mucous Membranes Moist - Respiratory Exam Respiratory Exam: Clear to Ausculation Bilateral, NORMAL BREATHING PATTERN. absent: Rales, Rhonchi, Wheezes - Cardiovascular Exam Cardiovascular Exam: REGULAR RHYTHM, +S1, +S2. absent: Gallop, Rubs, Murmur - GI/Abdominal Exam GI & Abdominal Exam: Soft, Normal Bowel Sounds. absent: Distended, Firm, Guarding, Rigid - Extremities Exam Extremities Exam: absent: Pedal Edema - Neurological Exam Neurological Exam: Alert, Awake, Oriented x3 - Psychiatric Exam Psychiatric exam: Normal Affect, Normal Mood - Skin Skin Exam: Dry, Intact, Normal Color, Warm Assessment and Plan - Assessment and Plan (Free Text) Assessment: 67 year old male with past medical history of CHF, HTN, HLD, CAD s/p CABG and COPD is admitted for dyspnea likely 2/2 CHF exacerbation vs. PNA Dyspnea - Likely 2/2 CHF exacerbation vs. PNA vs. COPD exacerbation - ProBNP on admission was 1720. Initial troponins are negative - CXR on admission showed blunting of L costophrenic rosibel due to small pleural effusion - ECHO from 04/13/18 showed EF of 40-45% with mildly imparied LV function. 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 Will check serial trops and ekg - Continue DAPT COPD - Continue duonebs q6 [facility] Hx of HTN - Currently holding antihypertensive medications HLD - Will check lipid panel and Hgb A1c Prophylaxis - Pepcid - lovenox - scds All orders and management per Dr. Mendoza
[2018-05-23] MEDS ORDERED: Sodium Chloride 0.9% 500 ML IV SCH (14:45)
--- NOTE | 2018-05-23 19:29 | CP.PCM.HP ---
Past Patient History - Infectious Disease Hx of Infectious Diseases: None - Past Medical History & Family History Past Medical History?: Yes - Past Social History Smoking Status: Former Smoker - CARDIAC Hx Atrial Fibrillation: Yes Hx Cardia Arrhythmia: Yes Hx Congestive Heart Failure: Yes Hx Hypercholesterolemia: Yes Hx Hypertension: Yes Hx Pacemaker: Yes - PULMONARY Hx Asthma: Yes Hx Bronchitis: Yes Hx Chronic Obstructive Pulmonary Disease (COPD): Yes Hx Emphysema: Yes - NEUROLOGICAL Hx Seizures: Yes - HEENT Hx HEENT Problems: No - RENAL Hx Chronic Kidney Disease: No - ENDOCRINE/METABOLIC Hx Endocrine Disorders: No - HEMATOLOGICAL/ONCOLOGICAL Hx Anemia: Yes - INTEGUMENTARY Hx Dermatological Problems: No - MUSCULOSKELETAL/RHEUMATOLOGICAL Hx Musculoskeletal Disorders: No Hx Falls: No - GASTROINTESTINAL Hx Gastrointestinal Disorders: No - GENITOURINARY/GYNECOLOGICAL Hx Sexually Transmitted Disorders: No - PSYCHIATRIC Hx Substance Use: No - SURGICAL HISTORY Hx Coronary Artery Bypass Graft: Yes (x3) Hx Coronary Stent: Yes (x3) - ANESTHESIA Hx Anesthesia: Yes Hx Anesthesia Reactions: No Hx Malignant Hyperthermia: No Meds Allergies/Adverse Reactions: Allergies Allergy/AdvReac Type Severity Reaction Status Date / Time No Known Allergies Allergy Verified 05/22/18 16:40 Physical Exam - Constitutional Appears: Non-toxic - Head Exam Head Exam: NORMAL INSPECTION - Eye Exam Eye Exam: Normal appearance - ENT Exam ENT Exam: Mucous Membranes Moist - Neck Exam Neck exam: Positive for: Normal Inspection - Respiratory Exam Respiratory Exam: Decreased Breath Sounds - Cardiovascular Exam Cardiovascular Exam: REGULAR RHYTHM - GI/Abdominal Exam GI & Abdominal Exam: Diminished Bowel Sounds - Rectal Exam Rectal Exam: Deferred Results - Vital Signs Recent Vital Signs: Last Vital Signs Temp 97.9 F 05/23/18 15:05 Pulse 74 05/23/18 18:22 Resp 20 05/23/18 15:05 BP 133/67 05/23/18 18:22 Pulse Ox 96 05/23/18 15:05 - Labs Result Diagrams: 05/22/18 17:21 05/22/18 17:21
[2018-05-23] MEDS: Azithromycin 500 MG in Sodium Chloride 0.9% 250 ML IVPB SCH (21:41)
[2018-05-24] MEDS: Albuterol-Ipratrop 3 mg / 0.5 (3 ml) UD INH SCH ×4 (01:22→19:24)
[2018-05-24] MEDS: MethylPREDNISolone 40 mg Vial IVP SCH ×3 (05:47→21:31)
[2018-05-24 07:22] LABS: BASO % 0.1 % (0.0-2.0); HEMOGLOBIN 11.2 g/dL (12.0-18.0); LYMPH # 0.7 K/uL (1.0-4.3); LYMPH % 8.3 % (20.0-40.0); MEAN CELL VOLUME 90.4 fL (80.0-94.0); MEAN CORPUSCULAR HEMOGLOBIN 30.8 pg (27.0-31.0); MEAN PLATELET VOLUME 7.2 fL (7.2-11.7); MONO # 0.3 K/uL (0.0-0.8); MONO % 3.2 % (0.0-10.0); NEUT # 7.3 K/uL (1.8-7.0); NEUT % 88.4 % (50.0-75.0); PLATELET COUNT 245 K/uL (130-400); RBC 3.63 Mil/uL (4.40-5.90); RED CELL DISTRIBUTION WIDTH 17.4 % (11.5-14.5)
[2018-05-24 07:24] LABS: WHITE BLOOD COUNT 8.3 K/uL (4.8-10.8)
[2018-05-24 07:45] LABS: ALB/GLOB RATIO 1.6 (1.0-2.1); ALBUMIN 3.7 g/dL (3.5-5.0); ALT/SGPT 19 U/L (21-72); AST/SGOT 27 U/L (17-59); BLOOD UREA NITROGEN 23 mg/dL (9-20); CALCIUM 8.4 mg/dl (8.6-10.4); GFR AFRICAN-AMERICAN > 60; GFR NON-AFRICAN AMERICAN > 60; HDL CHOLESTEROL 57 mg/dL (30-70)
[2018-05-24 07:54] LABS: B-TYPE NATRIURETIC PEPTIDE 980 pg/mL (0-900)
[2018-05-24 08:19] LABS: LDL CHOLESTEROL 110 mg/dL (0-129)
[2018-05-24 09:09] LABS: HYPOCHROMIC SLIGHT; LYMPHOCYTE 8 % (20-40); MONOCYTE 2 % (0-10); NEUTROPHIL 90 % (50-75); PLATELET ESTIMATE NORMAL (NORMAL); TOTAL CELLS COUNTED 100
--- NOTE | 2018-05-24 10:00 | CP.PCM.PN ---
Subjective - Date & Time of Evaluation Date of Evaluation: 05/24/18 Time of Evaluation: 09:59 - Subjective Subjective: PGY-[address] Viktor Mendoza Service Patient seen and examined at bedside. Per nursing no acute events occurred overnight. Patient denies any chest pain, abdominal pain, fevers, chills, nausea , vomiting, shortness of breath, dizziness, or any other complaints. Objective - Vital Signs/Intake and Output Vital Signs (last 24 hours): Temp Pulse Resp BP Pulse Ox 97.6 F 60 20 115/66 98 05/24/18 07:20 05/24/18 07:20 05/24/18 07:20 05/24/18 07:20 05/24/18 07:20 Intake and Output: 05/24/18 05/24/18 06:59 18:59 Intake Total 570 Output Total 1080 Balance -510 - Medications Medications: Current Medications Albuterol/Ipratropium (Duoneb 3 Mg/0.5 Mg (3 Ml) Ud) 3 ml INH RQ6 [facility] Last Admin: 05/24/18 07:20 Dose: 3 ml Amiodarone HCl (Cordarone) 200 mg PO TID [facility] Last Admin: 05/23/18 21:42 Dose: 200 mg Aspirin (Ecotrin) 81 mg PO DAILY [facility] Last Admin: 05/23/18 09:38 Dose: 81 mg Carvedilol (Coreg) 3.125 mg PO BID [facility] Last Admin: 05/23/18 18:21 Dose: 3.125 mg Clopidogrel Bisulfate (Plavix) 75 mg PO DAILY [facility] Last Admin: 05/23/18 09:36 Dose: 75 mg Enoxaparin Sodium (Lovenox) 40 mg SC DAILY [facility] Last Admin: 05/23/18 09:37 Dose: 40 mg Famotidine (Pepcid) 20 mg PO BID [facility] Last Admin: 05/23/18 18:21 Dose: 20 mg Furosemide (Lasix) 40 mg IVP DAILY [facility] Last Admin: 05/23/18 09:38 Dose: Not Given Azithromycin 500 mg/ Sodium (Chloride) 250 mls @ 167 mls/hr IVPB Q24H [facility] PRN Reason: Protocol Stop: 05/25/18 00:00 Last Admin: 05/23/18 21:41 Dose: 167 mls/hr Methylprednisolone (Solu-Medrol) 40 mg IVP Q8H [facility] Last Admin: 05/24/18 05:47 Dose: 40 mg - Labs Labs: 05/24/18 06:56 05/24/18 06:56 - Head Exam Head Exam: ATRAUMATIC, NORMAL INSPECTION, NORMOCEPHALIC - Eye Exam Eye Exam: EOMI, Normal appearance, PERRL. absent: Periorbital tenderness Pupil Exam: NORMAL ACCOMODATION - ENT Exam ENT Exam: Mucous Membranes Moist, Normal Oropharynx - Respiratory Exam Respiratory Exam: Decreased Breath Sounds, Rales. absent: Prolonged Expiratory Phase, Respiratory Distress - Cardiovascular Exam Cardiovascular Exam: REGULAR RHYTHM, +S1, +S2 - GI/Abdominal Exam GI & Abdominal Exam: Soft, Normal Bowel Sounds. absent: Hyperactive Bowel Sounds - Extremities Exam Extremities Exam: Full ROM. absent: Pedal Edema - Neurological Exam Neurological Exam: Alert, Awake, CN II-XII Intact, Oriented x3 - Psychiatric Exam Psychiatric exam: Normal Affect, Normal Mood Assessment and Plan - Assessment and Plan (Free Text) Plan: 67 year old male with past medical history of CHF, HTN, HLD, CAD s/p CABG and COPD is admitted for dyspnea likely 2/2 CHF exacerbation vs. PNA Dyspnea - Likely 2/2 CHF exacerbation vs. PNA vs. COPD exacerbation - ProBNP on admission was 1720. Initial troponins are negative - CXR on admission showed blunting of L costophrenic rosibel due to small pleural effusion - ECHO from 04/13/18 showed EF of 40-45% with mildly imparied LV function. - Continue home medications: Lasixs 40 mg IVP qd, coreg 3.125 mg po BID, Amiodarone 200 mg po TID - If no improvement tomorrow. Will consider Cardiology consult tomorrow. - Pt afebrile on admission and had normal WBC count - Continue zithromax - Continue solumedrol 40 mg IVP q8 - will check procal level CAD s/p CABG - Pt has history of ischemic cardiomyopathy - Initial troponins are negative. Will check serial trops and ekg - Continue DAPT COPD - Continue duonebs q6 [facility] Hx of HTN -Hemoglobin AIC: 5.9% -Lipid panel :Triglycerides 40 :Cholesterol 204 :HDL 57 :LDL 110 HLD - See above assesment Prophylaxis - Pepcid - lovenox - scds All orders and management per Dr. Mendoza
[2018-05-24] MEDS: Enoxaparin 40 mg Syringe SC SCH (10:12)
--- NOTE | 2018-05-24 20:17 | CP.PCM.PN ---
Subjective - Date & Time of Evaluation Date of Evaluation: 05/24/18 Time of Evaluation: 10:00 - Subjective Subjective: clinically same Objective - Vital Signs/Intake and Output Vital Signs (last 24 hours): Temp Pulse Resp BP Pulse Ox 97.4 F L 60 20 159/77 H 100 05/24/18 15:20 05/24/18 17:47 05/24/18 15:20 05/24/18 17:47 05/24/18 15:20 - Medications Medications: Current Medications Albuterol/Ipratropium (Duoneb 3 Mg/0.5 Mg (3 Ml) Ud) 3 ml INH RQ6 [facility] Last Admin: 05/24/18 19:24 Dose: 3 ml Amiodarone HCl (Cordarone) 200 mg PO TID [facility] Last Admin: 05/24/18 13:49 Dose: 200 mg Aspirin (Ecotrin) 81 mg PO DAILY [facility] Last Admin: 05/24/18 10:12 Dose: 81 mg Carvedilol (Coreg) 3.125 mg PO BID [facility] Last Admin: 05/24/18 10:13 Dose: 3.125 mg Clopidogrel Bisulfate (Plavix) 75 mg PO DAILY [facility] Last Admin: 05/24/18 10:12 Dose: 75 mg Enoxaparin Sodium (Lovenox) 40 mg SC DAILY [facility] Last Admin: 05/24/18 10:12 Dose: 40 mg Famotidine (Pepcid) 20 mg PO BID [facility] Last Admin: 05/24/18 10:12 Dose: 20 mg Furosemide (Lasix) 40 mg IVP DAILY [facility] Last Admin: 05/24/18 10:12 Dose: 40 mg Azithromycin 500 mg/ Sodium (Chloride) 250 mls @ 167 mls/hr IVPB Q24H [facility] PRN Reason: Protocol Stop: 05/25/18 00:00 Last Admin: 05/23/18 21:41 Dose: 167 mls/hr Methylprednisolone (Solu-Medrol) 40 mg IVP Q8H [facility] Last Admin: 05/24/18 13:50 Dose: 40 mg - Labs Labs: 05/24/18 06:56 05/24/18 06:56 - Constitutional Appears: Well - Head Exam Head Exam: ATRAUMATIC, NORMAL INSPECTION, NORMOCEPHALIC - Eye Exam Eye Exam: EOMI, Normal appearance, PERRL Pupil Exam: NORMAL ACCOMODATION, PERRL - ENT Exam ENT Exam: Mucous Membranes Moist, Normal Exam - Neck Exam Neck Exam: Full ROM, Normal Inspection. absent: Lymphadenopathy - Respiratory Exam Respiratory Exam: Decreased Breath Sounds - Cardiovascular Exam Cardiovascular Exam: REGULAR RHYTHM, +S1, +S2 - GI/Abdominal Exam GI & Abdominal Exam: Soft, Diminished Bowel Sounds - Rectal Exam Rectal Exam: Deferred
--- NOTE | 2018-05-24 21:28 | CARD ---
APPROVED REPORT Date of service: 05/22/2018 EKG Measurement Heart [id number] <Conclusion> Atrial-paced rhythm with prolonged AV conduction Possible Inferior infarct, age undetermined Cannot rule out Anterior infarct, age undetermined ST & T wave abnormality, consider lateral ischemia Abnormal ECG
[2018-05-24] MEDS: Azithromycin 500 MG in Sodium Chloride 0.9% 250 ML IVPB SCH (21:32)
[2018-05-25] MEDS: Albuterol-Ipratrop 3 mg / 0.5 (3 ml) UD INH SCH ×3 (01:17→13:30)
[2018-05-25] MEDS ORDERED: Alum-Mag Hydrox-Simethicone Susp (30 mL) PO ONE (02:45)
[2018-05-25] MEDS: MethylPREDNISolone 40 mg Vial IVP SCH ×2 (05:52→14:12)
[2018-05-25 08:22] VITALS: TEMP 97.4; O2SAT 100
[2018-05-25] MEDS: Enoxaparin 40 mg Syringe SC SCH (10:00)
--- NOTE | 2018-05-25 10:40 | CP.PCM.PN ---
Subjective - Date & Time of Evaluation Date of Evaluation: 05/25/18 Time of Evaluation: 10:40 - Subjective Subjective: PGY-[address] Viktor Mendoza Service Patient seen and examined at bedside. Per nursing no acute events occurred overnight. Patient denies any chest pain, abdominal pain, fevers, chills, nausea , vomiting, shortness of breath, dizziness, or any other complaints. Objective - Vital Signs/Intake and Output Vital Signs (last 24 hours): Temp Pulse Resp BP Pulse Ox 97.4 F L 73 18 136/74 100 05/25/18 07:05 05/25/18 08:00 05/25/18 07:05 05/25/18 10:00 05/25/18 07:05 Intake and Output: 05/25/18 05/25/18 06:59 18:59 Intake Total 730 Balance 730 - Medications Medications: Current Medications Albuterol/Ipratropium (Duoneb 3 Mg/0.5 Mg (3 Ml) Ud) 3 ml INH RQ6 [facility] Last Admin: 05/25/18 07:40 Dose: 3 ml Amiodarone HCl (Cordarone) 200 mg PO TID [facility] Last Admin: 05/25/18 10:00 Dose: 200 mg Aspirin (Ecotrin) 81 mg PO DAILY [facility] Last Admin: 05/25/18 10:00 Dose: 81 mg Carvedilol (Coreg) 3.125 mg PO BID [facility] Last Admin: 05/25/18 10:00 Dose: 3.125 mg Clopidogrel Bisulfate (Plavix) 75 mg PO DAILY [facility] Last Admin: 05/25/18 10:00 Dose: 75 mg Enoxaparin Sodium (Lovenox) 40 mg SC DAILY [facility] Last Admin: 05/25/18 10:00 Dose: 40 mg Famotidine (Pepcid) 20 mg PO BID [facility] Last Admin: 05/25/18 10:00 Dose: 20 mg Furosemide (Lasix) 40 mg IVP DAILY [facility] Last Admin: 05/25/18 10:00 Dose: 40 mg Methylprednisolone (Solu-Medrol) 40 mg IVP Q8H [facility] Last Admin: 05/25/18 05:52 Dose: 40 mg - Labs Labs: 05/24/18 06:56 05/24/18 06:56 Assessment and Plan - Assessment and Plan (Free Text) Plan: 67 year old male with past medical history of CHF, HTN, HLD, CAD s/p CABG and COPD is admitted for dyspnea likely 2/2 CHF exacerbation vs. PNA Dyspnea - Likely 2/2 CHF exacerbation vs. PNA vs. COPD exacerbation - ProBNP on admission was 1720. Initial troponins are negative - CXR on admission showed blunting of L costophrenic rosibel due to small pleural effusion - ECHO from 04/13/18 showed EF of 40-45% with mildly imparied LV function. - Continue home medications: Lasixs 40 mg IVP qd, coreg 3.125 mg po BID, Amiodarone 200 mg po TID - If no improvement tomorrow. Will consider Cardiology consult tomorrow. - Pt afebrile on admission and had normal WBC count - Continue zithromax - Continue solumedrol 40 mg IVP q8 -Procal: negative CAD s/p CABG - Pt has history of ischemic cardiomyopathy - Initial troponins are negative. Will check serial trops and ekg - Continue DAPT COPD - Continue duonebs q6 [facility] Hx of HTN -Hemoglobin AIC: 5.9% -Lipid panel :Triglycerides 40 :Cholesterol 204 :HDL 57 :LDL 110 HLD - See above assesment Prophylaxis - Pepcid - lovenox - scds All orders and management per Dr. Mendoza Discharge Instructions: 1. Follow up with PMD within 5 to7 days of discharge. 2. Follow up with Cardiology within 5 to 7 days of discharge. 3. Return to hospital for any new or worsening symptoms. Medications: 1. Amiodarone 200mg PO TID, #90, No refills. 2. Coreg 3.125mg PO BID, #60, No refills 3.Aspiring 81mg PO Daily, #30, No refills 4. Plavix 75mg PO Daily, #30, No refills 5. Lasix 40 mg PO Daily, #30, No refills 6.Pepcid 40mg PO Daily, #30, No refills.
[2018-05-25 11:23] LABS: BASO % 0.1 % (0.0-2.0); HEMOGLOBIN 11.6 g/dL (12.0-18.0); LYMPH # 0.5 K/uL (1.0-4.3); LYMPH % 5.3 % (20.0-40.0); MEAN CORPUSCULAR HEMOGLOBIN 30.7 pg (27.0-31.0); MEAN CORPUSCULAR HGB CONC 33.7 g/dL (33.0-37.0); MEAN PLATELET VOLUME 7.4 fL (7.2-11.7); MONO # 0.3 K/uL (0.0-0.8); MONO % 3.1 % (0.0-10.0); NEUT % 91.5 % (50.0-75.0); PLATELET COUNT 247 K/uL (130-400); RBC 3.79 Mil/uL (4.40-5.90); RED CELL DISTRIBUTION WIDTH 17.7 % (11.5-14.5); WHITE BLOOD COUNT 8.8 K/uL (4.8-10.8)
[2018-05-25 11:40] LABS: ALB/GLOB RATIO 1.5 (1.0-2.1); ALBUMIN 3.7 g/dL (3.5-5.0); ALT/SGPT 31 U/L (21-72); AST/SGOT 28 U/L (17-59); BLOOD UREA NITROGEN 27 mg/dL (9-20); CALCIUM 8.6 mg/dl (8.6-10.4); GFR AFRICAN-AMERICAN > 60; GFR NON-AFRICAN AMERICAN > 60
[2018-05-25 12:16] LABS: ANISOCYTOSIS SLIGHT; LYMPHOCYTE 6 % (20-40); MONOCYTE 3 % (0-10); NEUTROPHIL 91 % (50-75); OVALOCYTES SLIGHT; PLATELET ESTIMATE NORMAL (NORMAL); TOTAL CELLS COUNTED 100
[2018-05-25 15:54] VITALS: PULSE 71
[2018-05-25 16:05] VITALS: BP 143/82; RESP 20
== END 2018-05-25 17:30 | disposition home or self-care (01) ==
LOC: C.ER 16:21 → C.9E 17:53 → C.6T 20:15
PROVIDERS: ADMIT Internal Medicine Nephrology; ATTEND Internal Medicine Nephrology
DX: R07.9 Chest pain, unspecified (principal); R06.02 Shortness of breath; I11.0 Hypertensive heart disease with heart failure; I48.91 Unspecified atrial fibrillation; I50.9 Heart failure, unspecified; J44.9 Chronic obstructive pulmonary disease, unspecified; Z95.0 Presence of cardiac pacemaker; Z87.891 Personal history of nicotine dependence; Z95.1 Presence of aortocoronary bypass graft; Z95.5 Presence of coronary angioplasty implant and graft; E78.00 Pure hypercholesterolemia, unspecified; E78.5 Hyperlipidemia, unspecified; I25.10 Atherosclerotic heart disease of native coronary artery without angina pectoris; I25.5 Ischemic cardiomyopathy
CPT/HCPCS: 36415; 71045; 80053; 80061; 83036; 83735; 83880; 84100; 84145; 84484; 85025; 93005; 94640; 94760; 99285; G0378; J0456; J1650; J1940; J2920; J7030

== ENCOUNTER 2018-05-25 20:03 | Emergency (ER) | payer MEDICARE ==
[2018-05-25 20:04] VITALS: BMI 21.6
[2018-05-25 20:42] VITALS: BP 155/80; PULSE 65; RESP 16; TEMP 97; O2SAT 98
--- NOTE | 2018-05-25 22:18 | C.PDOC ---
History Of Present Illness 67 y/o M states he was here in this hospital and discharged today. He states he was admitted for chest pain and was discharged with 6 prescriptions which he can not fill. He went into detail that he gets 600+ dollars a month for social security, pays over 500 towards his rent, gets meals on wheels only on weekdays , pays 120/month for electricity, and can not even afford a phone. He states he called medicaid 20 times but was not approved. Patient was informed that he was evaluated for his chest pain in the ED, and the physician can only prescribe him the medications s/he thinks are necessary for him. Patient walked out of the ED. Time Seen by Provider: 05/25/18 21:25 Chief Complaint (Nursing): Medical Clearance Past Medical History Vital Signs: Last Vital Signs Temp 97 F L 05/25/18 20:41 Pulse 65 05/25/18 20:41 Resp 16 05/25/18 20:41 BP 155/80 H 05/25/18 20:41 Pulse Ox 98 05/25/18 20:41 - Medical History PMH: Anemia, Asthma, Atrial Fibrillation, Bronchitis, CAD, Cardia Arrhythmia, CHF, COPD, Emphysema, HTN, Hypercholesterolemia, Malignancy (right lung mass), Seizures Denies: Chronic Kidney Disease, Sexually Transmitted Disease Surgical History: CABG (x3), Coronary Stent (x3), Pacemaker - [facility] Procedures FLUOROSCOPY OF LEFT HEART USING OTHER CONTRAST (01/22/17) INSERT PACE. DUAL JOHN IN CHEST SUBCU/FASCIA, OPEN (02/17/17) INSERTION OF PACEMAKER LEAD INTO R VENTRICLE, PERC APPROACH (02/17/17) INSERTION OF PACEMAKER LEAD INTO RIGHT ATRIUM, PERC APPROACH (02/17/17) INTRODUCTION OF SERUM/TOX/VACCINE INTO MUSCLE, PERC APPROACH (01/22/17) MEASURE OF CARDIAC SAMPL & PRESSURE, L HEART, PERC APPROACH (01/22/17) Family History: States: Unknown Family Hx - Social History Hx Alcohol Use: No Hx Substance Use: No - Immunization History Hx Tetanus Toxoid Vaccination: No Hx Influenza Vaccination: No Hx Pneumococcal Vaccination: No Review Of Systems Review Of Systems: ROS cannot be obtained secondary to pt's inabilty to answer questions. (eloped) Physical Exam - Physical Exam Additional Physical Exam Comments: Not performed, eloped. ED Course And Treatment O2 Sat by Pulse Oximetry: 98 Disposition - Disposition Disposition: ELOPEMENT - ER ONLY Disposition Time: 22:19 Condition: STABLE - Clinical Impression Clinical Impression: History of elopement from health care facility
== END 2018-05-25 22:19 | disposition left against medical advice (07) ==
LOC: C.ER 20:03
DX: Z04.8 Encounter for examination and observation for other specified reasons (principal)

== ENCOUNTER 2018-05-26 06:43 | Emergency (ER) | payer MEDICARE ==
[2018-05-26 06:45] VITALS: BMI 21.6
[2018-05-26 06:58] VITALS: RESP 18
[2018-05-26] MEDS ORDERED: Absorbable Gelatin Sponge Size 12-7 MM STA (07:10)
[2018-05-26] MEDS ORDERED: Absorbable Gelatin Sponge Size 12-7 ONE (07:15)
--- NOTE | 2018-05-26 07:34 | C.PDOC ---
History Of Present Illness 67 year old male presents to the ED for an evaluation of bleeding wound to left index finger. Patient stated he was slicing vegetables this morning when he accidentally cut his finger. He reports he takes blood thinners but does not know the name. He denies any weakness, numbness, tingling. Time Seen by Provider: 05/26/18 07:07 Chief Complaint (Nursing): Abnormal Skin Integrity History Per: Patient History/Exam Limitations: no limitations Onset/Duration Of Symptoms: Hrs Current Symptoms Are (Timing): Still Present Location Of Injury: Left: Hand (cut to left index finger ) Past Medical History Reviewed: Historical Data, Nursing Documentation, Vital Signs Vital Signs: Last Vital Signs Temp 98 F 05/26/18 07:47 Pulse 63 05/26/18 07:47 Resp 18 05/26/18 07:47 BP 96/60 L 05/26/18 07:47 Pulse Ox 98 05/26/18 08:14 - Medical History PMH: Anemia, Asthma, Atrial Fibrillation, Bronchitis, CAD, Cardia Arrhythmia, CHF, COPD, Emphysema, HTN, Hypercholesterolemia, Malignancy (right lung mass), Seizures Denies: Chronic Kidney Disease, Sexually Transmitted Disease Surgical History: CABG (x3), Coronary Stent (x3), Pacemaker - [facility] Procedures FLUOROSCOPY OF LEFT HEART USING OTHER CONTRAST (01/22/17) INSERT PACE. DUAL JOHN IN CHEST SUBCU/FASCIA, OPEN (02/17/17) INSERTION OF PACEMAKER LEAD INTO R VENTRICLE, PERC APPROACH (02/17/17) INSERTION OF PACEMAKER LEAD INTO RIGHT ATRIUM, PERC APPROACH (02/17/17) INTRODUCTION OF SERUM/TOX/VACCINE INTO MUSCLE, PERC APPROACH (01/22/17) MEASURE OF CARDIAC SAMPL & PRESSURE, L HEART, PERC APPROACH (01/22/17) Family History: States: No Known Family Hx - Social History Hx Alcohol Use: No Hx Substance Use: No - Immunization History Hx Tetanus Toxoid Vaccination: No Hx Influenza Vaccination: No Hx Pneumococcal Vaccination: No Review Of Systems Skin: Positive for: Other (Bleeding wound to left index finger ) Neurological: Negative for: Weakness, Numbness Physical Exam - Physical Exam Appears: Non-toxic, No Acute Distress Skin: Warm, Other (1cm superficial avulsion to dorsal distal left second digit with active bleeding ) Head: Atraumatic, Normacephalic Eye(s): bilateral: Normal Inspection Nose: Normal Chest: Symmetrical Extremity: Normal ROM, No Tenderness, Capillary Refill (< 2 seconds), No Swelling Pulses: Left Radial: Normal, Right Radial: Normal Neurological/Psych: Oriented x3, Normal Speech, Normal Motor, Normal Sensation Gait: Steady ED Course And Treatment O2 Sat by Pulse Oximetry: 98 (RA) Pulse Ox Interpretation: Normal Medical Decision Making Medical Decision Making: Patient with bleeding wound from acute skin avulsion of the left index finger. Pressure dressing applied initially by RN, with no success. Wound irrigated with NS, no deep structure or tendon involvement. Gelfoam applied to wound with good hemostasis. Nonadherent dressing applied. Patient tolerate well. Upon discharge he asked for refills of his blood thinner medication. Disposition Counseled Patient/Family Regarding: Need For Followup - Disposition Referrals: Svitlana Westbrook MD [Staff Provider] - Disposition: HOME/ ROUTINE Disposition Time: 07:31 Condition: STABLE Additional Instructions: Gelfoam was applied to your wound. This will fall off in a few days, do not remove or wound will start bleeding and may not heal appropriately Prescriptions: Aspirin [Adult Low Dose Aspirin EC] 81 mg PO DAILY #30 tablet. 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 - Scribe Statement The provider has reviewed the documentation as recorded by the Romaineibarlene Leger All medical record entries made by the Romaineibarlene were at my direction and personally dictated by me. I have reviewed the chart and agree that the record accurately reflects my personal performance of the history, physical exam, medical decision making, and the department course for this patient. I have also personally directed, reviewed, and agree with the discharge instructions and disposition.
[2018-05-26 07:48] VITALS: BP 96/60; PULSE 63; TEMP 98
[2018-05-26 08:07] VITALS: O2SAT 98
== END 2018-05-26 07:48 | disposition home or self-care (01) ==
LOC: C.ER 06:43
DX: S61.201A Unspecified open wound of left index finger without damage to nail, initial encounter (principal); W26.0XXA Contact with knife, initial encounter; Y93.G1 Activity, food preparation and clean up

== ENCOUNTER 2018-05-26 12:15 | Emergency (ER) | payer MEDICARE ==
[2018-05-26 12:15] VITALS: BMI 21.6
[2018-05-26 12:27] VITALS: BP 126/78; PULSE 70; RESP 18; TEMP 97.7; O2SAT 100
[2018-05-26] MEDS ORDERED: Absorbable Gelatin Sponge Size 12-7 MM STA (12:42)
[2018-05-26] MEDS ORDERED: Absorbable Gelatin Sponge Size 12-7 ONE (13:00)
--- NOTE | 2018-05-26 14:18 | C.PDOC ---
History Of Present Illness 67 year old male presents to the ED for an evaluation of bleeding wound to left index finger. Patient stated he was slicing vegetables this morning when he accidentally cut his finger. He reports he takes blood thinners, but does not know the name. Patient was seen this morning for same injury. He states [facility] and got dressings wet and fell off. 1 cm superficial avulsion to dorsal distal left second digit with active bleeding Time Seen by Provider: 05/26/18 12:29 Chief Complaint (Nursing): Abnormal Skin Integrity History Per: Patient History/Exam Limitations: no limitations Onset/Duration Of Symptoms: Hrs Current Symptoms Are (Timing): Still Present Location Of Injury: Left: Hand (index finger) Past Medical History Reviewed: Historical Data, Nursing Documentation, Vital Signs Vital Signs: Last Vital Signs Temp 97.7 F 05/26/18 12:26 Pulse 70 05/26/18 12:26 Resp 18 05/26/18 12:26 BP 126/78 05/26/18 12:26 Pulse Ox 100 05/26/18 15:50 - Medical History PMH: Anemia, Asthma, Atrial Fibrillation, Bronchitis, CAD, Cardia Arrhythmia, CHF, COPD, Emphysema, HTN, Hypercholesterolemia, Malignancy (right lung mass), Seizures Denies: Chronic Kidney Disease, Sexually Transmitted Disease Surgical History: CABG (x3), Coronary Stent (x3), Pacemaker - [facility] Procedures FLUOROSCOPY OF LEFT HEART USING OTHER CONTRAST (01/22/17) INSERT PACE. DUAL JOHN IN CHEST SUBCU/FASCIA, OPEN (02/17/17) INSERTION OF PACEMAKER LEAD INTO R VENTRICLE, PERC APPROACH (02/17/17) INSERTION OF PACEMAKER LEAD INTO RIGHT ATRIUM, PERC APPROACH (02/17/17) INTRODUCTION OF SERUM/TOX/VACCINE INTO MUSCLE, PERC APPROACH (01/22/17) MEASURE OF CARDIAC SAMPL & PRESSURE, L HEART, PERC APPROACH (01/22/17) Family History: States: No Known Family Hx - Social History Hx Alcohol Use: No Hx Substance Use: No - Immunization History Hx Tetanus Toxoid Vaccination: No Hx Influenza Vaccination: No Hx Pneumococcal Vaccination: No Review Of Systems Skin: Positive for: Other (bleeding wound to the left index finger) Physical Exam - Physical Exam Appears: Non-toxic, No Acute Distress Skin: Warm, Dry, Other (1cm superficial avulsion to dorsal distal left second digit with active bleeding) Head: Atraumatic, Normacephalic Eye(s): bilateral: Normal Inspection Neck: Normal, Supple Chest: Symmetrical, No Tenderness Extremity: Normal ROM (at left second digit) Neurological/Psych: Oriented x3, Normal Speech, Normal Cognition ED Course And Treatment O2 Sat by Pulse Oximetry: 100 (RA) Pulse Ox Interpretation: Normal Medical Decision Making Medical Decision Making: Patient with bleeding wound from skin avulsion of the left index finger. Wound irrigated with NS. Gelfoam applied to wound with good hemostasis. Patient observed in ED for about 40 minutes and no bleeding through dressing occurred. New nonadherent dressing applied. Patient tolerated well and instructed to not wet, soak or remove dressing for at least 24 hours. Disposition Counseled Patient/Family Regarding: Diagnosis, Need For Followup - Disposition Referrals: [facility] [Outside] [facility] [Outside] Disposition: HOME/ ROUTINE Disposition Time: 13:50 Condition: GOOD Additional Instructions: Gelfoam was applied to your wound. This will fall off in a few days, do not remove or wound will start bleeding and may not heal appropriately. 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 - Scribe Statement The provider has reviewed the documentation as recorded by the Scribe (Garrison Hardwick) All medical record entries made by the Scribe were at my direction and personally dictated by me. I have reviewed the chart and agree that the record accurately reflects my personal performance of the history, physical exam, medical decision making, and the department course for this patient. I have also personally directed, reviewed, and agree with the discharge instructions and disposition.
== END 2018-05-26 13:58 | disposition home or self-care (01) ==
LOC: C.ER 12:15
DX: S61.201D Unspecified open wound of left index finger without damage to nail, subsequent encounter (principal); W45.8XXD Other foreign body or object entering through skin, subsequent encounter

== ENCOUNTER 2018-05-26 18:28 | Emergency (ER) | payer MEDICARE ==
[2018-05-26 18:28] VITALS: BMI 21.6
[2018-05-26 18:41] VITALS: BP 105/68; PULSE 80; RESP 16; TEMP 98; O2SAT 98
[2018-05-26] MEDS ORDERED: Bacitracin 500 Units/gm Oint Foilpak UD ONE (18:49)
--- NOTE | 2018-05-26 18:50 | C.PDOC ---
History Of Present Illness 67 yo male come in for evaluation of bleeding spot on Left forearm developed hour [facility]. Pt admits, was on anticoagulation therapy during recent hospitalization. Pt denies known trauma or injury, denies dizziness, weakness, CP, SOB, dyspnea, palpitation, denies weakness to left arm, sensory or vascular deficits to Left arm. FYI: ED records review. Pt was seen three times for past 18 hours in ED due to bleeding over Left finger. Pt had multiple admission for past month due to COPD , CP complaints. Last admission to hospital from 05/22/18-05/25/18 Time Seen by Provider: 05/26/18 18:48 Chief Complaint (Nursing): Abnormal Skin Integrity History Per: Patient Past Medical History Reviewed: Historical Data, Nursing Documentation, Vital Signs Vital Signs: Last Vital Signs Temp 98 F 05/26/18 18:39 Pulse 80 05/26/18 18:39 Resp 16 05/26/18 18:39 BP 105/68 05/26/18 18:39 Pulse Ox 98 05/26/18 21:14 - Medical History PMH: Anemia, Asthma, Atrial Fibrillation, Bronchitis, CAD, Cardia Arrhythmia, CHF, COPD, Emphysema, HTN, Hypercholesterolemia, Malignancy (right lung mass), Seizures Denies: Chronic Kidney Disease, Sexually Transmitted Disease Surgical History: CABG (x3), Coronary Stent (x3), Pacemaker - [facility] Procedures FLUOROSCOPY OF LEFT HEART USING OTHER CONTRAST (01/22/17) INSERT PACE. DUAL JOHN IN CHEST SUBCU/FASCIA, OPEN (02/17/17) INSERTION OF PACEMAKER LEAD INTO R VENTRICLE, PERC APPROACH (02/17/17) INSERTION OF PACEMAKER LEAD INTO RIGHT ATRIUM, PERC APPROACH (02/17/17) INTRODUCTION OF SERUM/TOX/VACCINE INTO MUSCLE, PERC APPROACH (01/22/17) MEASURE OF CARDIAC SAMPL & PRESSURE, L HEART, PERC APPROACH (01/22/17) Family History: States: Unknown Family Hx - Social History Hx Alcohol Use: No Hx Substance Use: No - Immunization History Hx Tetanus Toxoid Vaccination: No Hx Influenza Vaccination: No Hx Pneumococcal Vaccination: No Review Of Systems Except As Marked, All Systems Reviewed And Found Negative. Constitutional: Negative for: Fever, Chills ENT: Negative for: Throat Pain Cardiovascular: Negative for: Chest Pain, Palpitations, Orthopnea Respiratory: Negative for: Cough, Shortness of Breath, Wheezing Gastrointestinal: Negative for: Nausea, Vomiting, Abdominal Pain Musculoskeletal: Negative for: Neck Pain Skin: Positive for: Lesions Neurological: Negative for: Weakness, Numbness Physical Exam - Physical Exam Appears: Non-toxic, No Acute Distress Skin: Normal Color, Warm, Other (Left forearm multiple ecchymoses. Superficial puncture wound over volar aspect left forarm with continue bloody oozing. No edema, no palpable deformity.) Head: Normacephalic Eye(s): bilateral: PERRL Nose: No Flaring Oral Mucosa: Moist Extremity: Normal ROM (LUE), No Tenderness, Capillary Refill (less than 2 sec to left hand), No Deformity, No Swelling Neurological/Psych: Oriented x3, Normal Speech, Normal Motor, Normal Sensation, Normal Reflexes ED Course And Treatment O2 Sat by Pulse Oximetry: 98 Progress Note: On re-eavl, pt is afebrile, hemodynamicaly stable. NOn-toxic. Ambulatoy rin ED with stable giat. LUE: puncture wound closed with sutures, bleeding controlled. FAROM, no neurovascular deficits. Pt advised. ref. to f/ u with PMD in 1-2 days for re-eavl. return if any new changes. Laceration - Laceration Repair Left forearm Wound Length (In cm): 0.5 Description Of Wound: Clean Anesthesia: Lidocaine 1% Wound Examination: Irrigated With Saline, No FB With Wound Exploration, No Tendon Injury With Wound Exploration Wound Closure: Suture (#2) Suture Technique And Material Used: Vicryl (6-0) Disposition Counseled Patient/Family Regarding: Diagnosis, Need For Followup - Disposition Referrals: [facility] [Outside] Disposition: HOME/ ROUTINE Disposition Time: 18:50 Condition: STABLE Additional Instructions: Follow up with PMS in 2 days for re-evaluation. return if any new changes. Instructions: Laceration Repair With Stitches (DC) Forms: [employer] (Syrian) - Clinical Impression Clinical Impression: Laceration, Ecchymosis
== END 2018-05-26 19:01 | disposition home or self-care (01) ==
LOC: C.ER 18:28
DX: S51.812A Laceration without foreign body of left forearm, initial encounter (principal); X58.XXXA Exposure to other specified factors, initial encounter